=== PATIENT | male | born 1950 | race Caucasian/White ===

== ENCOUNTER 2018-11-01 07:59 | Inpatient (IN) | payer MEDICARE ==
[2018-11-01] MEDS ORDERED: PROPOFOL INJ 200 MG/20 ML VIAL IV ONE ×2 (10:40→14:34)
--- NOTE | 2018-11-01 11:59 | Operative Report ---
Operative Report DATE OF SURGERY: 11/01/18 Operative Report: The risks, benefits and alternatives of the procedure including the risk of bleeding, perforation requiring surgery have been explained to the patient in detail and informed consent has been obtained. The patient is brought back to the operating room and placed in a left, lateral decubital position. Timeout was called. Propofol medication is administered. A rectal examination is done which did not reveal any masses, tears or fissures. An Olympus videoscope was introduced into the patient's rectum. The scope was then carefully advanced. The patient does have significant diverticulosis and appears to have a redundant colon on the left side. I approached the area of the splenic flexure and there appeared to be an obstructive mass. Slight advancement of the scope could be done into the transverse colon but no further advancement could be maintained for the colonoscopy was not completed. Area was biopsied and Melita ink was used to inject the area for surgical location. I have spoken to Dr. Waldrop immediately following the case as well as updated the family members. Dr. Waldrop tells me that the patient will end up seeing Dr. Esparza. PREOPERATIVE DIAGNOSIS: Abnormal CT scan indicating a possible lesion in the area of the transverse colon POSTOPERATIVE DIAGNOSIS: Obstructive lesions noted at the area of the transverse colon and the splenic flexure area. Status post biopsy. Status post Melita ink tattoo OPERATION: Colonoscopy with submucosal injection of Melita ink. Colonoscopy with biopsy SURGEON: ANIL BARTH ANESTHESIA: LMAC TISSUE REMOVED OR ALTERED: As noted above. COMPLICATIONS: None. ESTIMATED BLOOD LOSS: None. INTRAOPERATIVE FINDINGS: As noted above. PROCEDURE: Patient tolerated the procedure well. No immediate postprocedure complications are noted. Patient discharged in good condition. Discharge date 11/01/2018. Discharge diet: Regular. Discharge activity: Regular. 2-3-week follow-up to discuss findings. Patient is instructed to call the office or proceed to the emergency room should there be any further problems or questions. I will wait on the pathology and make a surgical referral as discussed above.
[2018-11-01] MEDS ORDERED: LIDOCAINE 2% INJ-PF (20 MG/ML) 10 ML AMPUL ONE (14:33)
[2018-11-01] MEDS ORDERED: ONDANSETRON HCL INJ/PF 4 MG/2 ML SDV ONE (14:33)
[2018-11-01] MEDS ORDERED: FENTANYL CITRATE INJ/PF 100 MCG/2 ML AMPUL ONE (14:33)
[2018-11-01] MEDS ORDERED: DEXAMETHASONE SOD PHOSPHATE INJ 4 MG/1 ML VIAL ONE (14:33)
[2018-11-01] MEDS ORDERED: MIDAZOLAM 2 MG/2 ML INJ ONE (14:33)
[2018-11-01] MEDS ORDERED: EPHEDRINE SULFATE INJ 50 MG/1 ML AMPULE ONE (14:34)
[2018-11-01] MEDS ORDERED: ACETAMINOPHEN 0 MG/0 ML RTUPB IV ONE (14:34)
[2018-11-01] MEDS ORDERED: MORPHINE SULFATE 10 MG/ML INJ ONE (14:41)
--- NOTE | 2018-11-01 14:49 | PDOC CONSULTATION ---
History of Present Illness Admission Date/PCP: KEY MARTINEZ MD History of Present Illness: AYE ROCKWELL is a 68 year old male who was undergoing colonoscopy today here at [facility] by gastroenterology. a obstructing mass was noted at the distal transverse colon and surgery was consulted for further rx. upon questioning pt he has been having difficulty with stools over last couple of months. he requires multiple trips to the baathroom to pass small amts of stool throughut the day. H had a colonoscpy a number a yrs ago which is reported by him to have heen incomplete due to a tortuous colon. pt has a ct done in september of this yr at outside facitity. images were loaded up today here at [facility] and reviewd with radiologist. pt is currently post colonoscopy, resting comfortably on gurney in recovery room. Past Medical History Cardiac Medical History: Reports: Hypertension Denies: Atrial Fibrillation, Congestive Heart Failure, Coronary Artery Disease, Myocardial Infarction, Hyperlipidema, Peripheral Vascular Disease, Pulmonary Embolism, Heart Murmur Pulmonary Medical History: Denies: Asthma, Bronchitis, Chronic Obstructive Pulmonary Disease (COPD), Pneumonia, Respiratory Failure, Sleep Apnea, Tuberculosis Neurological Medical History: Denies: Seizures Endocrine Medical History: Denies: Hyperthyroidism, Hypothyroidism Renal/ Medical History: Denies: End Stage Renal Disease Malignancy Medical History: Denies: Breast Cancer, Cervical Cancer, Lung Cancer, Ovarian Cancer GI Medical History: Reports: Hiatal Hernia Denies: Crohn's Disease, Gastroesophageal Reflux Disease Musculoskeltal Medical History: Reports: Arthritis - GENERALIZED Denies: Fibromyalgia Psychiatric Medical History: Denies: Bipolar Disorder, Dementia, Depression, Post Traumatic Stress Disorder Hematology: Denies: Anemia Past Surgical History Past Surgical History: Reports: Orthopedic Surgery - neck surgery Denies: Colostomy, Pacemaker Social History Smoking Status: Current Every Day Smoker Frequency of Alcohol Use: Heavy Hx Recreational Drug Use: No Hx Prescription Drug Abuse: No Family History Family History: Arthritis, CAD, Hyperlipidemia, Hypertension. denies: COPD, CVA, DM, Malignancy - mother of colon cancer, Thyroid Disfunction Parental Family History Reviewed: No Children Family History Reviewed: Unknown Sibling(s) Family History Reviewed.: Unknown Medication/Allergy Home Medications: Lisinopril [Prinivil 20 mg Tablet] 20 mg PO DAILY 08/24/12 Omeprazole [Prilosec 40 mg Capsule] 40 mg PO AC 08/24/12 Tamsulosin HCl [Flomax] 0.4 mg PO DAILY 10/31/18 Allergies/Adverse Reactions: valsartan [From [employer]] Allergy (Unknown, Verified 11/01/18 08:26) Review of Systems Constitutional: PRESENT: as per HPI, anorexia Eyes: PRESENT: as per HPI Ears: PRESENT: as per HPI Nose, Mouth, and Throat: PRESENT: as per HPI Cardiovascular: PRESENT: as per HPI Gastrointestinal: PRESENT: constipation Neurological: PRESENT: as per HPI Psychiatric: PRESENT: as per HPI Endocrine: PRESENT: as per HPI Hematologic/Lymphatic: PRESENT: as per HPI Allergic/Immunologic: PRESENT: as per HPI Physical Exam Vital Signs: Temp Pulse Resp BP Pulse Ox 98.0 F 78 16 141/79 H 98 11/01/18 12:05 11/01/18 12:20 11/01/18 12:20 11/01/18 12:20 11/01/18 12:20 Intake & Output 10/31/18 11/01/18 11/02/18 06:59 06:59 06:59 Intake Total 750 Output Total 0 Balance 750 Weight 59.87 kg 59.87 kg General appearance: PRESENT: no acute distress Head exam: PRESENT: atraumatic, normocephalic Eye exam: PRESENT: EOMI Neck exam: PRESENT: full ROM Respiratory exam: PRESENT: clear to auscultation sravanthi Cardiovascular exam: PRESENT: RRR Pulses: PRESENT: normal radial pulses, normal femoral pulses GI/Abdominal exam: PRESENT: firm, other - thin, liver palpable Extremities exam: PRESENT: full ROM Neurological exam: PRESENT: alert, awake, oriented to time, oriented to situation Psychiatric exam: PRESENT: appropriate affect Skin exam: PRESENT: dry Results Status: Image reviewed by vt - ct scan reviwed with radiology multiple masses seen in both liver lobes c/w metastatic disease tumor seen in distal transverse colon. Assessment & Plan - Plan Summary Plan Summary: pt with obstructing colon cancer with metastatic disease will plan on decompression trasverse loop colostomy then oncology consult for management of metastic disease I dicussed risks and benifits of the colostomy iwth pt and his brother at bedside they understand risks of bleeding,infection, sepsis mi, cva, pulm embolism, need for additional surgery pt agrees to proceed.
[2018-11-01] MEDS ORDERED: BUPIVACAINE HCL 0.25 % INJ/PF (2.5 MG/1 ML) 30 ML VIAL ONE (14:57)
[2018-11-01] MEDS ORDERED: BUPIVACAINE INJ/PF LIPOSOME/PF 266 MG/20 ML SDV ONE (14:57)
[2018-11-01] MEDS ORDERED: BUPIVACAINE HCL 0.5%-EPI 1:200000 INJ/PF 30 ML VIAL ONE (14:57)
[2018-11-01] MEDS ORDERED: BUPIVACAINE HCL 0.5 % INJ/PF 30 ML SDV ONE (14:57)
[2018-11-01 15:07] LABS: ABSOLUTE BASOPHILS # (AUTO) 0.1 10^3/uL (0.0-0.2); ABSOLUTE EOSINOPHILS # (AUTO) 0.1 10^3/uL (0.0-0.6); ABSOLUTE LYMPHOCYTES (AUTO) 0.7 10^3/uL (0.5-4.7); ABSOLUTE NEUT (AUTO) 5.8 10^3/uL (1.7-8.2); BASOPHILS % (AUTO) 0.8 % (0-2); EOSINOPHILS % (AUTO) 1.5 % (0-6); HEMATOCRIT 37.2 % (37.9-51.0); HEMOGLOBIN 12.7 g/dL (13.5-17.0); LYMPHOCYTES % (AUTO) 9.2 % (13-45); MEAN CORPUSCULAR HEMOGLOBIN 30.5 pg (27.0-33.4); MEAN CORPUSCULAR HGB CONC 34.1 g/dL (32.0-36.0); MEAN CORPUSCULAR VOLUME 90 fl (80-97); MONOCYTES % (AUTO) 13.2 % (3-13); PLATELET COUNT 237 10^3/uL (150-450); RED BLOOD COUNT 4.16 10^6/uL (4.35-5.55); RED CELL DISTRIBUTION WIDTH 13.7 % (11.5-14.0); SEGMENTED NEUTROPHILS % (AUTO) 75.3 % (42-78); TOTAL CELLS COUNTED % (AUTO) 100 %; WHITE BLOOD COUNT 7.7 10^3/uL (4.0-10.5)
[2018-11-01 15:22] LABS: ANION GAP 8 (5-19); BLOOD UREA NITROGEN 12 mg/dL (7-20); CALCIUM 9.7 mg/dL (8.4-10.2); CARBON DIOXIDE 30 mmol/L (22-30); CHLORIDE 99 mmol/L (98-107); GLUCOSE 86 mg/dL (75-110); POTASSIUM 4.3 mmol/L (3.6-5.0); SODIUM 137.4 mmol/L (137-145)
[2018-11-01 15:32] LABS: INTERNATIONAL RATION (INR) 1.02; PROTHROMBIN TIME 13.9 SEC (11.4-15.4)
[2018-11-01 15:33] LABS: PARTIAL THROMBOPLASTIN TIME 40.3 SEC (23.5-35.8)
[2018-11-01] MEDS ORDERED: HYDROMORPHONE HCL INJ/PF 2 MG/ML AMPULE ONE (15:43)
[2018-11-01] MEDS ORDERED: METRONIDAZOLE 500 MG/NS RTU 500 MG/100 ML RTUPB IV ONE (16:05)
[2018-11-01] MEDS ORDERED: CEFAZOLIN 1 GM/D5W RTU 1 GM/50 ML RTUPB IV ONE (16:05)
[2018-11-01] MEDS ORDERED: PHYTONADIONE INJ 10 MG/1 ML AMPULE ONE (16:25)
[2018-11-01] MEDS ORDERED: PROMETHAZINE HCL INJ 25 MG/1 ML VIAL IV PRN (16:57)
[2018-11-01] MEDS ORDERED: DIPHENHYDRAMINE HCL 50 MG/ML VIAL IV PRN (16:57)
[2018-11-01] MEDS ORDERED: FENTANYL CITRATE INJ/PF 100 MCG/2 ML AMPUL IV PRN ×3 (16:57)
[2018-11-01] MEDS ORDERED: MORPHINE SULFATE 10 MG/ML INJ IV PRN (16:57)
[2018-11-01] MEDS ORDERED: MEPERIDINE HCL/PF INJ 25 MG/1 ML DISP.SYRIN IV PRN (16:57)
--- NOTE | 2018-11-01 17:20 | Operative Report ---
Operative Report DATE OF SURGERY: 11/01/18 PREOPERATIVE DIAGNOSIS: obstructing colon cancer OPERATION: transverse loop colostomy and liver biopsy SURGEON: FELICIANO PEGUERO 1ST NUMERICAL CONTROL TOOL PROGRAMMER: RAMÓN TORRE ANESTHESIA: GA TISSUE REMOVED OR ALTERED: liver biopsy COMPLICATIONS: none ESTIMATED BLOOD LOSS: 50cc INTRAOPERATIVE FINDINGS: metastatatic tumor in liver PROCEDURE: see dictated note
[2018-11-01] MEDS ORDERED: DEXTROSE 50%-WATER 25 GM/50 ML DISP.SYRIN IV PRN ×2 (17:23)
[2018-11-01] MEDS ORDERED: GLUCAGON,HUMAN RECOMB 1 MG INJ SUBCUT PRN (17:23)
[2018-11-01] MEDS ORDERED: DEXTROSE 40% GEL 15 GM TUBE PO PRN ×2 (17:23)
[2018-11-01] MEDS ORDERED: ONDANSETRON HCL INJ/PF 4 MG/2 ML SDV IV PRN (17:23)
--- NOTE | 2018-11-01 18:42 | OPERATIVE REPORT E ---
Operative Report NAME: AYE ROCKWELL : 1950 AGE: 68Y DATE OF SURGERY: 11/01/2018 ROOM: OR PREOPERATIVE DIAGNOSIS: OBSTRUCTING COLON CANCER. POSTOPERATIVE DIAGNOSIS: OBSTRUCTING COLON CANCER. OPERATIVE PROCEDURE: Transverse loop colostomy with liver biopsy. SURGEON: FELICIANO PEGUERO M.D. DIGITAL ADVERTISING SPECIALIST: Jaren Waldrop M.D. who assisted in all portions of the procedure and aided in retraction and wound closure. INDICATIONS FOR OPERATION: This is a 68-year-old male who underwent a colonoscopy today by Dr. Armijo, who noted an obstructive lesion in his distal transverse colon. We then reviewed his CT scans which showed marked hepatic metastasis. Because of the near obstructing lesion he was brought to the operating room for this procedure. PROCEDURE IN DETAIL: The patient was brought to the operating room in an awake, alert, and stable condition. Placed on the operating room table in the supine position, induced under general anesthesia, intubated. The abdomen was prepped and draped in the usual sterile fashion for the procedure. Incision was utilized from just below the xyphoid to the umbilicus. Dissection carried down to through the subcutaneous tissue with Bovie cautery. When the midline fascia was entered he had very thin midline fascia. His subcutaneous tissue had very little fat and his liver was markedly enlarged about 6 cm below the right costal margin. We had to retract the right lobe of the liver anteriorly to gain access to the transverse colon. When we visualized the liver it was markedly infiltrated with tumor. A small biopsy was obtained using a 15 blade and incising a small wedge biopsy of the right lobe of the liver, approximately a centimeter of tissue was removed, and hemostasis was obtained with Bovie cautery. Once this was completed we identified the transverse colon and I palpated the hepatic flexure down to the cecum to make sure that it was in fact the transverse colon. I cleared the omentum off the transverse colon with Bovie cautery, preserving the transverse colonic mesentery. Once this was done the transverse colon was fairly mobile and it would easily fit to underneath the left abdominal wall. We then created a defect in the left anterior rectus fascia using Bovie cautery to incise a half dollar size segment of skin and then we made a stellate incision in the anterior sheath and the posterior sheath of the rectus muscle, and then we pulled the transverse loop through that. Once this was completed we confirmed good hemostasis and closed the midline fascia with a running 0 looped PDS suture and the skin was then closed with standard skin clips. We then matured the transverse loop over a Red Rubber Colon Catheter with interrupted 3-0 Vicryl sutures. A sterile colostomy appliance was then applied, which completed the procedure. Estimated blood loss was less than 50 mL. Sponge and needle counts were correct x2. The patient was awakened in the operating room, extubated, transferred to recovery in stable condition. No complications. DICTATING PHYSICIAN: FELICIANO PEGUERO M.D. [id number] PHY#: [id number] ID: [id number] JOB#: [id number] ACCT: [id number] cc:FELICIANO PEGUERO M.D. >
[2018-11-01] MEDS: CEFAZOLIN 1 GM/D5W RTU 1 GM/50 ML RTUPB IV SCH ×2 (19:59→23:54)
[2018-11-01 20:34] LABS: ALANINE AMINOTRANSFERASE 26 U/L (21-72); ALBUMIN 3.8 g/dL (3.5-5.0); ALKALINE PHOSPHATASE 310 U/L (38-126); ASPARTATE AMINO TRANSFERASE 115 U/L (17-59); BILIRUBIN,DIRECT 0.4 mg/dL (0.0-0.4); BILIRUBIN,TOTAL 0.9 mg/dL (0.2-1.3); TOTAL PROTEIN 6.6 g/dL (6.3-8.2)
[2018-11-01] MEDS: MORPHINE SULFATE 10 MG/ML INJ IV PRN ×2 (20:57→23:49)
[2018-11-01] MEDS: POTASSI CL 20 MEQ/NS 1L 1,000 ML IV PRN (21:08)
--- NOTE | 2018-11-01 21:12 | EKG REPORT ---
SEVERITY:- ABNORMAL ECG - SINUS RHYTHM RIGHT BUNDLE BRANCH BLOCK : Confirmed by: Josette Barber 01-Nov-2018 21:11:26
[2018-11-01] MEDS: HEPARIN SOD (PORCINE) 5,000 UNIT/ML 1 ML SYRINGE SUBCUT SCH (22:09)
[2018-11-01] MEDS: FAMOTIDINE INJ/PF 20 MG/2 ML SDV IV SCH (22:09)
[2018-11-01] MEDS: METRONIDAZOLE 500 MG/NS RTU 500 MG/100 ML RTUPB IV SCH (22:10)
[2018-11-02] MEDS: MORPHINE SULFATE 10 MG/ML INJ IV PRN ×5 (04:11→20:25)
[2018-11-02] MEDS: CEFAZOLIN 1 GM/D5W RTU 1 GM/50 ML RTUPB IV SCH ×3 (05:40→18:19)
[2018-11-02] MEDS: METRONIDAZOLE 500 MG/NS RTU 500 MG/100 ML RTUPB IV SCH ×3 (06:19→21:44)
[2018-11-02 06:44] LABS: HEMATOCRIT 38.5 % (37.9-51.0); MEAN CORPUSCULAR HEMOGLOBIN 30.2 pg (27.0-33.4); MEAN CORPUSCULAR HGB CONC 33.7 g/dL (32.0-36.0); MEAN CORPUSCULAR VOLUME 90 fl (80-97); PLATELET COUNT 215 10^3/uL (150-450); RED BLOOD COUNT 4.28 10^6/uL (4.35-5.55); RED CELL DISTRIBUTION WIDTH 13.9 % (11.5-14.0); WHITE BLOOD COUNT 8.3 10^3/uL (4.0-10.5)
[2018-11-02 07:09] LABS: ABSOLUTE LYMPHOCYTES# (MANUAL) 0.2 10^3/uL (0.5-4.7); ABSOLUTE MONOCYTES # (MANUAL) 1.1 10^3/uL (0.1-1.4); ABSOLUTE NEUTROPHILS# (MANUAL) 7.1 10^3/uL (1.7-8.2); BASOPHILS % (MANUAL) 0 % (0-2); EOSINOPHILS % (MANUAL) 0 % (0-6); LYMPHOCYTES % (MANUAL) 2 % (13-45); MONOCYTES % (MANUAL) 13 % (3-13); PLATELET COMMENT ADEQUATE; RBC MORPHOLOGY COMMENT NORMO-CYTIC/CHROMIC; SEGMENTED NEUTROPHILS % (MAN) 85 % (42-78); TOTAL CELLS COUNTED 100; TOXIC VACUOLATION PRESENT
[2018-11-02 07:19] LABS: ALANINE AMINOTRANSFERASE 29 U/L (21-72); ALBUMIN 3.8 g/dL (3.5-5.0); ALKALINE PHOSPHATASE 274 U/L (38-126); ANION GAP 13 (5-19); ASPARTATE AMINO TRANSFERASE 119 U/L (17-59); BILIRUBIN,DIRECT 0.6 mg/dL (0.0-0.4); BILIRUBIN,TOTAL 0.8 mg/dL (0.2-1.3); BLOOD UREA NITROGEN 14 mg/dL (7-20); CALCIUM 9.3 mg/dL (8.4-10.2); CARBON DIOXIDE 24 mmol/L (22-30); CHLORIDE 101 mmol/L (98-107); GLUCOSE 116 mg/dL (75-110); SODIUM 138.4 mmol/L (137-145); TOTAL PROTEIN 6.6 g/dL (6.3-8.2)
--- NOTE | 2018-11-02 08:19 | PDOC PROGRESS REPORT ---
Subjective Progress Note for:: 11/02/18 Reason For Visit: METASTATIC COLON CANCER post op transverse loop colostomy Physical Exam Vital Signs: Temp Pulse Resp BP Pulse Ox 97.4 F 103 H 19 176/97 H 99 11/02/18 00:59 11/02/18 00:59 11/02/18 00:59 11/02/18 00:59 11/02/18 00:59 Intake & Output 11/01/18 11/02/18 11/03/18 06:59 06:59 06:59 Intake Total 3190 Output Total 1045 Balance 2145 Weight 59.87 kg 60.8 kg General appearance: PRESENT: no acute distress Mouth exam: PRESENT: moist Neck exam: PRESENT: full ROM Respiratory exam: PRESENT: clear to auscultation sravanthi Cardiovascular exam: PRESENT: RRR, tachycardia Pulses: PRESENT: normal radial pulses, normal femoral pulses GI/Abdominal exam: PRESENT: soft - wound clean dry stoma pink. non productive Extremities exam: PRESENT: full ROM Neurological exam: PRESENT: alert, awake, oriented to person, oriented to place, oriented to time, oriented to situation Psychiatric exam: PRESENT: appropriate affect Results Laboratory Results: 11/02/18 05:39 11/02/18 05:39 11/01/18 11/01/18 11/01/18 14:52 14:52 14:52 WBC 7.7 RBC 4.16 L Hgb 12.7 L Hct 37.2 L MCV 90 MCH 30.5 MCHC 34.1 RDW 13.7 Plt Count 237 Seg Neutrophils % 75.3 Lymphocytes % 9.2 L Monocytes % 13.2 H Eosinophils % 1.5 Basophils % 0.8 Absolute Neutrophils 5.8 Absolute Lymphocytes 0.7 Absolute Monocytes 1.0 Absolute Eosinophils 0.1 Absolute Basophils 0.1 Sodium 137.4 Potassium 4.3 Chloride 99 Carbon Dioxide 30 Anion Gap 8 BUN 12 Creatinine 0.66 Est GFR ( Amer) > 60 Est GFR (Non-Af Amer) > 60 Glucose 86 Calcium 9.7 Total Bilirubin 0.9 AST 115 H ALT 26 Alkaline Phosphatase 310 H Total Protein 6.6 Albumin 3.8 11/02/18 11/02/18 05:39 05:39 WBC 8.3 RBC 4.28 L Hgb 13.0 L Hct 38.5 MCV 90 MCH 30.2 MCHC 33.7 RDW 13.9 Plt Count 215 Seg Neutrophils % Not Reportable Lymphocytes % Not Reportable Monocytes % Not Reportable Eosinophils % Not Reportable Basophils % Not Reportable Absolute Neutrophils Not Reportable Absolute Lymphocytes Not Reportable Absolute Monocytes Not Reportable Absolute Eosinophils Not Reportable Absolute Basophils Not Reportable Sodium 138.4 Potassium 5.0 Chloride 101 Carbon Dioxide 24 Anion Gap 13 BUN 14 Creatinine 0.71 Est GFR ( Amer) > 60 Est GFR (Non-Af Amer) > 60 Glucose 116 H Calcium 9.3 Total Bilirubin 0.8 AST 119 H ALT 29 Alkaline Phosphatase 274 H Total Protein 6.6 Albumin 3.8 Assessment & Plan - Inpatient Certification Medical Necessity: Need Close Monitoring Due to Risk of Patient Decompensation, Need for Pain Control, Need for IV Antibiotics - Plan Summary Plan Summary: pod #1 loop colostomy for obstructed colon cancer this am doing well stoma pink pt with min c/o pain plan clear liquids dc cerna cont iv abx increase activity.
[2018-11-02] MEDS: HEPARIN SOD (PORCINE) 5,000 UNIT/ML 1 ML SYRINGE SUBCUT SCH ×2 (09:52→21:47)
[2018-11-02] MEDS: FAMOTIDINE INJ/PF 20 MG/2 ML SDV IV SCH ×2 (09:52→21:47)
[2018-11-02] MEDS: POTASSI CL 20 MEQ/NS 1L 1,000 ML IV PRN (10:11)
[2018-11-02] MEDS ORDERED: MORPHINE SULFATE INJ PF 2 MG/2 ML AMPULE IV PRN (10:13)
[2018-11-02] MEDS: ALBUTEROL SULFATE 0.083% NEB 2.5 MG/3 ML AMPUL NEB SCH ×3 (12:00→19:46)
[2018-11-03] MEDS: ALBUTEROL SULFATE 0.083% NEB 2.5 MG/3 ML AMPUL NEB SCH ×6 (00:41→21:35)
[2018-11-03] MEDS: CEFAZOLIN 1 GM/D5W RTU 1 GM/50 ML RTUPB IV SCH ×4 (01:04→17:17)
[2018-11-03] MEDS: POTASSI CL 20 MEQ/NS 1L 1,000 ML IV PRN ×2 (01:06→11:59)
[2018-11-03] MEDS: MORPHINE SULFATE 10 MG/ML INJ IV PRN ×3 (04:14→20:03)
[2018-11-03] MEDS: METRONIDAZOLE 500 MG/NS RTU 500 MG/100 ML RTUPB IV SCH ×3 (05:38→22:20)
--- NOTE | 2018-11-03 06:50 | PDOC PROGRESS REPORT ---
Subjective Progress Note for:: 11/03/18 Reason For Visit: METASTATIC COLON CANCER Physical Exam Vital Signs: Temp Pulse Resp BP Pulse Ox 98.3 F 92 18 149/76 H 96 11/03/18 00:00 11/03/18 04:28 11/03/18 04:28 11/03/18 00:00 11/03/18 04:28 Intake & Output 11/01/18 11/02/18 11/03/18 06:59 06:59 06:59 Intake Total 3190 3722 Output Total 1045 850 Balance 2145 2872 Weight 59.87 kg 60.8 kg 60.1 kg General appearance: PRESENT: no acute distress Eye exam: PRESENT: EOMI, PERRLA Neck exam: PRESENT: full ROM Respiratory exam: PRESENT: clear to auscultation sravanthi Cardiovascular exam: PRESENT: RRR Pulses: PRESENT: normal carotid pulses, normal radial pulses, normal femoral pulses Vascular exam: PRESENT: normal capillary refill GI/Abdominal exam: PRESENT: other - stoma pink, some gas in bag, no stool wound dry Extremities exam: PRESENT: full ROM Musculoskeletal exam: PRESENT: full ROM Neurological exam: PRESENT: alert, oriented to person, oriented to place, oriented to time, oriented to situation, reflexes normal Skin exam: PRESENT: dry Results Laboratory Results: 11/02/18 05:39 11/02/18 11/02/18 05:39 05:39 WBC 8.3 RBC 4.28 L Hgb 13.0 L Hct 38.5 MCV 90 MCH 30.2 MCHC 33.7 RDW 13.9 Plt Count 215 Seg Neutrophils % Not Reportable Lymphocytes % Not Reportable Monocytes % Not Reportable Eosinophils % Not Reportable Basophils % Not Reportable Absolute Neutrophils Not Reportable Absolute Lymphocytes Not Reportable Absolute Monocytes Not Reportable Absolute Eosinophils Not Reportable Absolute Basophils Not Reportable Sodium 138.4 Potassium 5.0 Chloride 101 Carbon Dioxide 24 Anion Gap 13 BUN 14 Creatinine 0.71 Est GFR ( Amer) > 60 Est GFR (Non-Af Amer) > 60 Glucose 116 H Calcium 9.3 Total Bilirubin 0.8 AST 119 H ALT 29 Alkaline Phosphatase 274 H Total Protein 6.6 Albumin 3.8 Assessment & Plan - Inpatient Certification Medical Necessity: Need For IV Fluids - Plan Summary Plan Summary: pod # awating return of bowel function will cont with abx increase activity cont only clears.
[2018-11-03 06:58] LABS: HEMATOCRIT 39.2 % (37.9-51.0); HEMOGLOBIN 13.1 g/dL (13.5-17.0); MEAN CORPUSCULAR HEMOGLOBIN 30.1 pg (27.0-33.4); MEAN CORPUSCULAR HGB CONC 33.4 g/dL (32.0-36.0); MEAN CORPUSCULAR VOLUME 90 fl (80-97); PLATELET COUNT 225 10^3/uL (150-450); RED BLOOD COUNT 4.35 10^6/uL (4.35-5.55); RED CELL DISTRIBUTION WIDTH 13.8 % (11.5-14.0); WHITE BLOOD COUNT 9.8 10^3/uL (4.0-10.5)
[2018-11-03 07:34] LABS: ABSOLUTE LYMPHOCYTES# (MANUAL) 0.7 10^3/uL (0.5-4.7); ABSOLUTE MONOCYTES # (MANUAL) 0.6 10^3/uL (0.1-1.4); ABSOLUTE NEUTROPHILS# (MANUAL) 8.5 10^3/uL (1.7-8.2); BASOPHILS % (MANUAL) 0 % (0-2); EOSINOPHILS % (MANUAL) 0 % (0-6); LYMPHOCYTES % (MANUAL) 7 % (13-45); MONOCYTES % (MANUAL) 6 % (3-13); SEGMENTED NEUTROPHILS % (MAN) 87 % (42-78); TOTAL CELLS COUNTED 100
[2018-11-03 07:35] LABS: PLATELET COMMENT ADEQUATE; RBC MORPHOLOGY COMMENT NORMO-CYTIC/CHROMIC
[2018-11-03] MEDS ORDERED: LORAZEPAM INJ 2 MG/1 ML VIAL IV PRN (08:04)
--- NOTE | 2018-11-03 08:30 | PDOC CONSULTATION ---
Consultation Consult Date: 11/03/18 Consult reason:: Hematology/Oncology consultation was requested for patient with suspected metastatic colon cancer. History of Present Illness Admission Date/PCP: 11/01/18 14:41 KEY CARRERA MD History of Present Illness: AYE ROCKWELL is a 68 year old male who follows with Dr. Carrera in [place]. He states that he underwent colonoscopy 4 years ago and at that time, he was told that he had 2 polyps that they "couldn't reach." He had been feeling well until about 1 month ago when he developed lower back pain. He was evaluated by Dr. Carrera with X-rays and conservative management, but pain progressed and he began having difficulty with BMs. He underwent MRI scan of the back and this showed a colon mass with probable liver mets. He underwent colonoscopy with Dr. Armijo, but pathology revealed no evidence of cancer. He was admitted for surgical resection of the colon mass by Dr. Esparza. He now has colostomy. Today, he states that he is having pain. The pain medication that was ordered has not helped at all. He has difficulty moving due to pain. He is tolerating some liquids, but has not yet been allowed to eat. He denies nausea. Past Medical History Cardiac Medical History: Reports: Hypertension Denies: Atrial Fibrillation, Congestive Heart Failure, Coronary Artery Disease, Myocardial Infarction, Hyperlipidema, Peripheral Vascular Disease, Pulmonary Embolism, Heart Murmur Pulmonary Medical History: Denies: Asthma, Bronchitis, Chronic Obstructive Pulmonary Disease (COPD), Pneumonia, Respiratory Failure, Sleep Apnea, Tuberculosis Neurological Medical History: Denies: Seizures Endocrine Medical History: Denies: Hyperthyroidism, Hypothyroidism Renal/ Medical History: Denies: End Stage Renal Disease Malignancy Medical History: Denies: Breast Cancer, Cervical Cancer, Lung Cancer, Ovarian Cancer GI Medical History: Reports: Hiatal Hernia Denies: Crohn's Disease, Gastroesophageal Reflux Disease Musculoskeltal Medical History: Reports: Arthritis - GENERALIZED Denies: Fibromyalgia Psychiatric Medical History: Denies: Bipolar Disorder, Dementia, Depression, Post Traumatic Stress D isorder Hematology: Denies: Anemia Past Surgical History Past Surgical History: Reports: Orthopedic Surgery - neck surgery Denies: Colostomy, Pacemaker Social History Information Source: Patient Occupation: retired packer Smoking Status: Current Every Day Smoker Frequency of Alcohol Use: Heavy Hx Recreational Drug Use: No Drugs: None Hx Prescription Drug Abuse: No Past Social History Note: He is with 1 child. - Advance Directive Resuscitation Status: Full Code Family History Family History: Arthritis, CAD, Hyperlipidemia, Hypertension. denies: COPD, CVA, DM, Malignancy - mother of colon cancer, Thyroid Disfunction Parental Family History Reviewed: Yes - Mother with colon cancer, but of COPD. Father of SD. Children Family History Reviewed: No Sibling(s) Family History Reviewed.: Yes - Brother of SD age 54 Medication/Allergy Home Medications: Lisinopril [Prinivil 20 mg Tablet] 20 mg PO DAILY 08/24/12 Omeprazole [Prilosec 40 mg Capsule] 40 mg PO AC 08/24/12 Tamsulosin HCl [Flomax] 0.4 mg PO DAILY 10/31/18 Allergies/Adverse Reactions: valsartan [From [employer] Allergy (Unknown, Verified 11/01/18 08:26) Review of Systems Constitutional: ABSENT: fever(s), headache(s) Eyes: ABSENT: visual disturbances Ears: ABSENT: hearing changes Nose, Mouth, and Throat: ABSENT: sore throat Cardiovascular: ABSENT: chest pain Respiratory: ABSENT: dyspnea Gastrointestinal: PRESENT: abdominal pain, constipation. ABSENT: nausea Genitourinary: ABSENT: dysuria Musculoskeletal: PRESENT: back pain Integumentary: ABSENT: rash Neurological: ABSENT: dizziness Physical Exam Vital Signs: Temp Pulse Resp BP Pulse Ox 98.3 F 92 18 149/76 H 96 11/03/18 00:00 11/03/18 04:28 11/03/18 04:28 11/03/18 00:00 11/03/18 04:28 Intake & Output 11/02/18 11/03/18 11/04/18 06:59 06:59 06:59 Intake Total 3190 7532 Output Total 1048 958 Balance 2145 2922 Weight 60.8 kg 60.1 kg General appearance: PRESENT: well-developed, well-nourished Exam: 68 year old male. Head exam: PRESENT: atraumatic, normocephalic Eye exam: PRESENT: EOMI Mouth exam: PRESENT: tongue midline Neck exam: ABSENT: lymphadenopathy, tenderness Respiratory exam: PRESENT: clear to auscultation sravanthi, unlabored Cardiovascular exam: PRESENT: RRR GI/Abdominal exam: PRESENT: soft, tenderness, other - Colostomy with serosanguenous fluid. Extremities exam: ABSENT: pedal edema Neurological exam: PRESENT: alert, awake Psychiatric exam: PRESENT: appropriate affect Focused psych exam: ABSENT: pressured speech Skin exam: PRESENT: normal color Results Laboratory Results: 11/03/18 05:48 11/02/18 05:39 11/03/18 05:48 WBC 9.8 RBC 4.35 Hgb 13.1 L Hct 39.2 MCV 90 MCH 30.1 MCHC 33.4 RDW 13.8 Plt Count 225 Seg Neutrophils % Not Reportable Lymphocytes % Not Reportable Monocytes % Not Reportable Eosinophils % Not Reportable Basophils % Not Reportable Absolute Neutrophils Not Reportable Absolute Lymphocytes Not Reportable Absolute Monocytes Not Reportable Absolute Eosinophils Not Reportable Absolute Basophils Not Reportable Assessment & Plan - Diagnosis (1) Colonic mass Is this a current diagnosis for this admission?: Yes Plan: I reviewed the labs and will check CEA level now. I do not have access to the CT/MRI reports from the other facility. I will try to obtain these reports. Await pathology results. Further recommendations after all above is available. (2) Pain Is this a current diagnosis for this admission?: Yes Plan: After surgery. Morphine has not been adequate. I will add Toradol RTC as well as PRN ativan and consider increasing dose of morphine as well. Will hold off on long-acting opiods if possible. - Plan Summary Plan Summary: Thank you for this consultation. I will be happy to continue to follow him in house as well as outpatient. Will review results of pathology report with the patient once available.
[2018-11-03] MEDS: HEPARIN SOD (PORCINE) 5,000 UNIT/ML 1 ML SYRINGE SUBCUT SCH ×2 (10:26→22:20)
[2018-11-03] MEDS: FAMOTIDINE INJ/PF 20 MG/2 ML SDV IV SCH ×2 (10:26→22:20)
[2018-11-03] MEDS: KETOROLAC TROMETHAMINE INJ/PF 30 MG/1 ML SDV IV SCH ×2 (11:10→17:17)
[2018-11-04] MEDS: ALBUTEROL SULFATE 0.083% NEB 2.5 MG/3 ML AMPUL NEB SCH ×6 (00:16→20:50)
[2018-11-04] MEDS: KETOROLAC TROMETHAMINE INJ/PF 30 MG/1 ML SDV IV SCH ×5 (00:42→23:38)
[2018-11-04] MEDS: CEFAZOLIN 1 GM/D5W RTU 1 GM/50 ML RTUPB IV SCH ×5 (00:43→23:37)
[2018-11-04] MEDS: POTASSI CL 20 MEQ/NS 1L 1,000 ML IV PRN ×2 (03:41→20:06)
[2018-11-04] MEDS: MORPHINE SULFATE 10 MG/ML INJ IV PRN ×4 (05:54→22:24)
[2018-11-04] MEDS: METRONIDAZOLE 500 MG/NS RTU 500 MG/100 ML RTUPB IV SCH ×3 (06:47→22:10)
[2018-11-04 07:17] LABS: ABSOLUTE EOSINOPHILS # (AUTO) 0.1 10^3/uL (0.0-0.6); ABSOLUTE LYMPHOCYTES (AUTO) 0.5 10^3/uL (0.5-4.7); ABSOLUTE NEUT (AUTO) 5.5 10^3/uL (1.7-8.2); BASOPHILS % (AUTO) 0.5 % (0-2); EOSINOPHILS % (AUTO) 0.9 % (0-6); HEMATOCRIT 34.6 % (37.9-51.0); HEMOGLOBIN 11.8 g/dL (13.5-17.0); LYMPHOCYTES % (AUTO) 7.2 % (13-45); MEAN CORPUSCULAR HEMOGLOBIN 30.7 pg (27.0-33.4); MEAN CORPUSCULAR VOLUME 90 fl (80-97); MONOCYTES % (AUTO) 13.5 % (3-13); PLATELET COUNT 192 10^3/uL (150-450); RED BLOOD COUNT 3.83 10^6/uL (4.35-5.55); RED CELL DISTRIBUTION WIDTH 13.7 % (11.5-14.0); SEGMENTED NEUTROPHILS % (AUTO) 77.9 % (42-78); TOTAL CELLS COUNTED % (AUTO) 100 %; WHITE BLOOD COUNT 7.1 10^3/uL (4.0-10.5)
[2018-11-04] MEDS: HEPARIN SOD (PORCINE) 5,000 UNIT/ML 1 ML SYRINGE SUBCUT SCH ×2 (10:58→22:10)
[2018-11-04] MEDS: FAMOTIDINE INJ/PF 20 MG/2 ML SDV IV SCH ×2 (10:58→22:10)
--- NOTE | 2018-11-04 12:27 | PDOC PROGRESS REPORT ---
Subjective Progress Note for:: 11/04/18 Subjective:: Patient has no new concerns today. He has several visitors in the room. Reason For Visit: METASTATIC COLON CANCER Physical Exam Vital Signs: Temp Pulse Resp BP Pulse Ox 97.5 F 90 15 160/93 H 96 11/04/18 08:16 11/04/18 08:16 11/04/18 08:16 11/04/18 08:16 11/04/18 08:16 Intake & Output 11/03/18 11/04/18 11/05/18 06:59 06:59 06:59 Intake Total 3772 4260 100 Output Total 850 475 300 Balance 2922 3785 -200 Weight 60.1 kg 63.9 kg Results Laboratory Results: 11/04/18 06:15 11/02/18 05:39 11/04/18 06:15 WBC 7.1 RBC 3.83 L Hgb 11.8 L Hct 34.6 L MCV 90 MCH 30.7 MCHC 34.0 RDW 13.7 Plt Count 192 Seg Neutrophils % 77.9 Lymphocytes % 7.2 L Monocytes % 13.5 H Eosinophils % 0.9 Basophils % 0.5 Absolute Neutrophils 5.5 Absolute Lymphocytes 0.5 Absolute Monocytes 1.0 Absolute Eosinophils 0.1 Absolute Basophils 0.0 Assessment & Plan - Diagnosis (1) Colonic mass Is this a current diagnosis for this admission?: Yes (2) Pain Is this a current diagnosis for this admission?: Yes - Plan Summary Plan Summary: Although I would like to review pathology report in detail with the patient and family, he has indicated that this is not a good time to do so. I have offered to arrange a family meeting at another point. However, he states that his family will be taking him to [place] for his treatments. I will be happy to see him as outpatient should he decide to have treatment locally. I believe he would benefit from some type of systemic chemotherapy, but several options exist. I will arrange for outpatient follow-up with me, should he so choose.
--- NOTE | 2018-11-04 14:40 | PDOC PROGRESS REPORT ---
Subjective Progress Note for:: 11/04/18 Subjective:: no pains Reason For Visit: METASTATIC COLON CANCER Physical Exam Vital Signs: Temp Pulse Resp BP Pulse Ox 97.9 F 69 15 172/93 H 96 11/04/18 12:04 11/04/18 12:04 11/04/18 12:04 11/04/18 12:04 11/04/18 08:16 Intake & Output 11/03/18 11/04/18 11/05/18 06:59 06:59 06:59 Intake Total 3772 4260 150 Output Total 850 475 300 Balance 2922 3785 -150 Weight 60.1 kg 63.9 kg Exam: colostomy starting to function Results Laboratory Results: 11/04/18 06:15 11/02/18 05:39 11/04/18 06:15 WBC 7.1 RBC 3.83 L Hgb 11.8 L Hct 34.6 L MCV 90 MCH 30.7 MCHC 34.0 RDW 13.7 Plt Count 192 Seg Neutrophils % 77.9 Lymphocytes % 7.2 L Monocytes % 13.5 H Eosinophils % 0.9 Basophils % 0.5 Absolute Neutrophils 5.5 Absolute Lymphocytes 0.5 Absolute Monocytes 1.0 Absolute Eosinophils 0.1 Absolute Basophils 0.0 Assessment & Plan - Time Time Spent with patient: 15-24 minutes - Inpatient Certification Medical Necessity: Need Close Monitoring Due to Risk of Patient Decompensation, Need For IV Fluids, Risk of Complication if Not Cared For in Hospital - Plan Summary Plan Summary: increase diet to full liquids Oncology ff-up noted and appreciated
[2018-11-04] MEDS ORDERED: LISINOPRIL 10 MG TABLET PO ONE (17:00)
[2018-11-05] MEDS: ALBUTEROL SULFATE 0.083% NEB 2.5 MG/3 ML AMPUL NEB SCH ×4 (01:17→13:06)
[2018-11-05 04:59] LABS: ABSOLUTE EOSINOPHILS # (AUTO) 0.1 10^3/uL (0.0-0.6); ABSOLUTE LYMPHOCYTES (AUTO) 0.6 10^3/uL (0.5-4.7); ABSOLUTE MONOCYTES (AUTO) 1.1 10^3/uL (0.1-1.4); ABSOLUTE NEUT (AUTO) 5.6 10^3/uL (1.7-8.2); BASOPHILS % (AUTO) 0.5 % (0-2); EOSINOPHILS % (AUTO) 1.6 % (0-6); HEMATOCRIT 35.8 % (37.9-51.0); HEMOGLOBIN 12.1 g/dL (13.5-17.0); LYMPHOCYTES % (AUTO) 7.6 % (13-45); MEAN CORPUSCULAR HEMOGLOBIN 30.4 pg (27.0-33.4); MEAN CORPUSCULAR HGB CONC 33.8 g/dL (32.0-36.0); MEAN CORPUSCULAR VOLUME 90 fl (80-97); MONOCYTES % (AUTO) 14.7 % (3-13); PLATELET COUNT 208 10^3/uL (150-450); RED BLOOD COUNT 3.98 10^6/uL (4.35-5.55); RED CELL DISTRIBUTION WIDTH 13.9 % (11.5-14.0); SEGMENTED NEUTROPHILS % (AUTO) 75.6 % (42-78); TOTAL CELLS COUNTED % (AUTO) 100 %; WHITE BLOOD COUNT 7.5 10^3/uL (4.0-10.5)
[2018-11-05] MEDS: CEFAZOLIN 1 GM/D5W RTU 1 GM/50 ML RTUPB IV SCH ×4 (05:44→23:05)
[2018-11-05] MEDS: KETOROLAC TROMETHAMINE INJ/PF 30 MG/1 ML SDV IV SCH ×4 (05:44→23:04)
[2018-11-05] MEDS: METRONIDAZOLE 500 MG/NS RTU 500 MG/100 ML RTUPB IV SCH ×3 (06:43→22:14)
[2018-11-05] MEDS: LISINOPRIL 10 MG TABLET PO SCH (09:31)
[2018-11-05] MEDS: MORPHINE SULFATE 10 MG/ML INJ IV PRN ×2 (09:32→22:33)
[2018-11-05] MEDS: FAMOTIDINE INJ/PF 20 MG/2 ML SDV IV SCH ×2 (09:33→22:15)
--- NOTE | 2018-11-05 09:58 | PDOC PROGRESS REPORT ---
Subjective Progress Note for:: 11/05/18 Reason For Visit: METASTATIC COLON CANCER Physical Exam Vital Signs: Temp Pulse Resp BP Pulse Ox 97.9 F 99 16 185/95 H 96 11/05/18 07:51 11/05/18 07:51 11/05/18 07:51 11/05/18 07:51 11/05/18 07:51 Intake & Output 11/04/18 11/05/18 11/06/18 06:59 06:59 06:59 Intake Total 4260 2121 100 Output Total 475 950 Balance 3785 1171 100 Weight 63.9 kg 63.8 kg General appearance: PRESENT: no acute distress Neck exam: PRESENT: full ROM Respiratory exam: PRESENT: clear to auscultation sravanthi Cardiovascular exam: PRESENT: RRR - abd soft, non tender wound clean stoma pink and productive of stool Results Laboratory Results: 11/05/18 04:09 11/02/18 05:39 11/05/18 04:09 WBC 7.5 RBC 3.98 L Hgb 12.1 L Hct 35.8 L MCV 90 MCH 30.4 MCHC 33.8 RDW 13.9 Plt Count 208 Seg Neutrophils % 75.6 Lymphocytes % 7.6 L Monocytes % 14.7 H Eosinophils % 1.6 Basophils % 0.5 Absolute Neutrophils 5.6 Absolute Lymphocytes 0.6 Absolute Monocytes 1.1 Absolute Eosinophils 0.1 Absolute Basophils 0.0 Assessment & Plan - Plan Summary Plan Summary: pt now with early return of bowel function on full liquids pt lives by himself in [place] and family planning on taking him to [place] for care and treatment upon discharge will cont full liquids today prob can be discharge in a day or two
[2018-11-05] MEDS ORDERED: IPRATROPIUM/ALBUTEROL 0.5-2.5 MG/3 ML AMPUL NEB PRN (10:01)
[2018-11-05] MEDS: HEPARIN SOD (PORCINE) 5,000 UNIT/ML 1 ML SYRINGE SUBCUT SCH ×2 (12:20→22:14)
[2018-11-05] MEDS: HYDROCHLOROTHIAZIDE 25 MG TABLET PO SCH (13:40)
[2018-11-06] MEDS: CEFAZOLIN 1 GM/D5W RTU 1 GM/50 ML RTUPB IV SCH (05:37)
[2018-11-06] MEDS: MORPHINE SULFATE 10 MG/ML INJ IV PRN ×2 (05:38→21:21)
[2018-11-06] MEDS: KETOROLAC TROMETHAMINE INJ/PF 30 MG/1 ML SDV IV SCH ×3 (05:38→17:26)
[2018-11-06] MEDS: METRONIDAZOLE 500 MG/NS RTU 500 MG/100 ML RTUPB IV SCH (05:39)
[2018-11-06] MEDS: POTASSI CL 20 MEQ/NS 1L 1,000 ML IV PRN (05:49)
[2018-11-06 06:44] LABS: ABSOLUTE BASOPHILS # (AUTO) 0.1 10^3/uL (0.0-0.2); ABSOLUTE EOSINOPHILS # (AUTO) 0.1 10^3/uL (0.0-0.6); ABSOLUTE LYMPHOCYTES (AUTO) 0.5 10^3/uL (0.5-4.7); ABSOLUTE MONOCYTES (AUTO) 1.4 10^3/uL (0.1-1.4); ABSOLUTE NEUT (AUTO) 6.5 10^3/uL (1.7-8.2); BASOPHILS % (AUTO) 0.6 % (0-2); EOSINOPHILS % (AUTO) 1.7 % (0-6); HEMOGLOBIN 12.2 g/dL (13.5-17.0); LYMPHOCYTES % (AUTO) 6.3 % (13-45); MEAN CORPUSCULAR HEMOGLOBIN 30.4 pg (27.0-33.4); MEAN CORPUSCULAR VOLUME 90 fl (80-97); MONOCYTES % (AUTO) 15.8 % (3-13); PLATELET COUNT 214 10^3/uL (150-450); RED BLOOD COUNT 4.02 10^6/uL (4.35-5.55); SEGMENTED NEUTROPHILS % (AUTO) 75.6 % (42-78); TOTAL CELLS COUNTED % (AUTO) 100 %; WHITE BLOOD COUNT 8.7 10^3/uL (4.0-10.5)
[2018-11-06] MEDS: HEPARIN SOD (PORCINE) 5,000 UNIT/ML 1 ML SYRINGE SUBCUT SCH ×2 (09:16→21:20)
[2018-11-06] MEDS: LISINOPRIL 10 MG TABLET PO SCH (09:17)
[2018-11-06] MEDS: FAMOTIDINE INJ/PF 20 MG/2 ML SDV IV SCH ×2 (09:17→21:20)
[2018-11-06] MEDS: HYDROCHLOROTHIAZIDE 25 MG TABLET PO SCH (09:17)
--- NOTE | 2018-11-06 10:36 | PDOC PROGRESS REPORT ---
Subjective Progress Note for:: 11/06/18 Reason For Visit: METASTATIC COLON CANCER Physical Exam Vital Signs: Temp Pulse Resp BP Pulse Ox 98.1 F 96 16 166/90 H 96 11/06/18 08:25 11/06/18 08:25 11/06/18 08:25 11/06/18 08:25 11/06/18 08:25 Intake & Output 11/05/18 11/06/18 11/07/18 06:59 06:59 06:59 Intake Total 2121 1836 Output Total 950 550 Balance 1171 1286 Weight 63.8 kg 61.9 kg General appearance: PRESENT: no acute distress Respiratory exam: PRESENT: clear to auscultation sravanthi Cardiovascular exam: PRESENT: RRR GI/Abdominal exam: PRESENT: other - soft, incision clean stoma pink, prodiuctive Results Laboratory Results: 11/06/18 05:42 11/02/18 05:39 11/06/18 05:42 WBC 8.7 RBC 4.02 L Hgb 12.2 L Hct 36.0 L MCV 90 MCH 30.4 MCHC 34.0 RDW 14.0 Plt Count 214 Seg Neutrophils % 75.6 Lymphocytes % 6.3 L Monocytes % 15.8 H Eosinophils % 1.7 Basophils % 0.6 Absolute Neutrophils 6.5 Absolute Lymphocytes 0.5 Absolute Monocytes 1.4 Absolute Eosinophils 0.1 Absolute Basophils 0.1 Assessment & Plan - Plan Summary Plan Summary: plan- will advnce diet hep lock ivf colostomy teaching poss home in am
[2018-11-07] MEDS: KETOROLAC TROMETHAMINE INJ/PF 30 MG/1 ML SDV IV SCH ×4 (00:10→17:21)
[2018-11-07 05:20] LABS: ABSOLUTE EOSINOPHILS # (AUTO) 0.1 10^3/uL (0.0-0.6); ABSOLUTE LYMPHOCYTES (AUTO) 0.7 10^3/uL (0.5-4.7); ABSOLUTE MONOCYTES (AUTO) 1.2 10^3/uL (0.1-1.4); ABSOLUTE NEUT (AUTO) 6.4 10^3/uL (1.7-8.2); BASOPHILS % (AUTO) 0.4 % (0-2); EOSINOPHILS % (AUTO) 1.2 % (0-6); HEMATOCRIT 37.9 % (37.9-51.0); HEMOGLOBIN 12.9 g/dL (13.5-17.0); LYMPHOCYTES % (AUTO) 7.8 % (13-45); MEAN CORPUSCULAR HEMOGLOBIN 30.4 pg (27.0-33.4); MEAN CORPUSCULAR HGB CONC 33.9 g/dL (32.0-36.0); MEAN CORPUSCULAR VOLUME 90 fl (80-97); MONOCYTES % (AUTO) 14.6 % (3-13); PLATELET COUNT 220 10^3/uL (150-450); RED BLOOD COUNT 4.22 10^6/uL (4.35-5.55); RED CELL DISTRIBUTION WIDTH 14.5 % (11.5-14.0); TOTAL CELLS COUNTED % (AUTO) 100 %; WHITE BLOOD COUNT 8.4 10^3/uL (4.0-10.5)
--- NOTE | 2018-11-07 08:55 | PDOC PROGRESS REPORT ---
Subjective Progress Note for:: 11/07/18 Reason For Visit: METASTATIC COLON CANCER Physical Exam Vital Signs: Temp Pulse Resp BP Pulse Ox 97.9 F 98 16 159/99 H 97 11/07/18 07:56 11/07/18 07:56 11/07/18 07:56 11/07/18 07:56 11/07/18 07:56 Intake & Output 11/06/18 11/07/18 11/08/18 06:59 06:59 06:59 Intake Total 1836 686 Output Total 550 990 Balance 1286 -304 Weight 61.9 kg 62.1 kg General appearance: PRESENT: no acute distress Respiratory exam: PRESENT: clear to auscultation sravanthi Cardiovascular exam: PRESENT: RRR GI/Abdominal exam: PRESENT: other - abd soft non tender stoma functioning wound clean dry Extremities exam: PRESENT: full ROM Neurological exam: PRESENT: alert, awake, oriented to time, oriented to situation Skin exam: PRESENT: dry Results Laboratory Results: 11/07/18 04:20 11/02/18 05:39 11/07/18 04:20 WBC 8.4 RBC 4.22 L Hgb 12.9 L Hct 37.9 MCV 90 MCH 30.4 MCHC 33.9 RDW 14.5 H Plt Count 220 Seg Neutrophils % 76.0 Lymphocytes % 7.8 L Monocytes % 14.6 H Eosinophils % 1.2 Basophils % 0.4 Absolute Neutrophils 6.4 Absolute Lymphocytes 0.7 Absolute Monocytes 1.2 Absolute Eosinophils 0.1 Absolute Basophils 0.0 Assessment & Plan - Plan Summary Plan Summary: pt now joel reg diet and having bowel function family unable to fruit or nut picker pt today and he wants to stay additional day for family to arrange pickup will have dc planning see pt and physical therapy eval plan on dc home in am
[2018-11-07] MEDS: MORPHINE SULFATE 10 MG/ML INJ IV PRN ×2 (10:11→20:26)
[2018-11-07] MEDS: HEPARIN SOD (PORCINE) 5,000 UNIT/ML 1 ML SYRINGE SUBCUT SCH ×2 (10:12→21:37)
[2018-11-07] MEDS: LISINOPRIL 10 MG TABLET PO SCH (10:13)
[2018-11-07] MEDS: FAMOTIDINE INJ/PF 20 MG/2 ML SDV IV SCH ×2 (10:13→21:37)
[2018-11-07] MEDS: HYDROCHLOROTHIAZIDE 25 MG TABLET PO SCH (10:13)
[2018-11-07] MEDS: HYDRALAZINE HCL INJ/PF 20 MG/1 ML SDV IV PRN (13:09)
[2018-11-08] MEDS: HYDRALAZINE HCL INJ/PF 20 MG/1 ML SDV IV PRN ×2 (00:19→11:23)
[2018-11-08] MEDS: KETOROLAC TROMETHAMINE INJ/PF 30 MG/1 ML SDV IV SCH ×2 (00:20→05:57)
[2018-11-08 05:44] LABS: ABSOLUTE BASOPHILS # (AUTO) 0.1 10^3/uL (0.0-0.2); ABSOLUTE EOSINOPHILS # (AUTO) 0.1 10^3/uL (0.0-0.6); ABSOLUTE LYMPHOCYTES (AUTO) 0.5 10^3/uL (0.5-4.7); ABSOLUTE MONOCYTES (AUTO) 1.2 10^3/uL (0.1-1.4); ABSOLUTE NEUT (AUTO) 6.2 10^3/uL (1.7-8.2); BASOPHILS % (AUTO) 0.7 % (0-2); EOSINOPHILS % (AUTO) 1.5 % (0-6); HEMATOCRIT 39.1 % (37.9-51.0); HEMOGLOBIN 13.3 g/dL (13.5-17.0); LYMPHOCYTES % (AUTO) 6.6 % (13-45); MEAN CORPUSCULAR HEMOGLOBIN 30.1 pg (27.0-33.4); MEAN CORPUSCULAR VOLUME 89 fl (80-97); MONOCYTES % (AUTO) 14.7 % (3-13); PLATELET COUNT 243 10^3/uL (150-450); RED BLOOD COUNT 4.41 10^6/uL (4.35-5.55); RED CELL DISTRIBUTION WIDTH 14.6 % (11.5-14.0); SEGMENTED NEUTROPHILS % (AUTO) 76.5 % (42-78); TOTAL CELLS COUNTED % (AUTO) 100 %; WHITE BLOOD COUNT 8.1 10^3/uL (4.0-10.5)
[2018-11-08] MEDS: MORPHINE SULFATE 10 MG/ML INJ IV PRN (09:45)
[2018-11-08] MEDS: HEPARIN SOD (PORCINE) 5,000 UNIT/ML 1 ML SYRINGE SUBCUT SCH (09:46)
[2018-11-08] MEDS: HYDROCHLOROTHIAZIDE 25 MG TABLET PO SCH (09:48)
[2018-11-08] MEDS: LISINOPRIL 10 MG TABLET PO SCH (09:48)
[2018-11-08] MEDS: FAMOTIDINE INJ/PF 20 MG/2 ML SDV IV SCH (09:48)
--- NOTE | 2018-11-08 11:36 | Discharge Summary ---
Discharge Summary (SDC) - Discharge Final Diagnosis: metastatic colon cancer Date of Surgery: 11/01/18 Condition: Fair Treatment or Instructions: pt will f/u iwth his primary physician in [facility] and for oncology f/u. Referrals: DOMINICK DELAROSA MD [ACTIVE STAFF] - (1-2 weeks. Please arrange. ) KEY MARTINEZ MD [Primary Care Provider] - Discharge Diet: As Tolerated Discharge Activity: Activity As Tolerated Home Care Assistance: Home Health Activities Provided by Home Health Agency: Physical Therapy, Occupational Therapy Report the Following to Your Physician Immediately: Shortness of Breath, Nausea, Vomiting, Increase in Pain, Yellow Skin - pt will also need a f/u in surgery clinic in 7-10 days for suture remvoval, Fever over 101 Degrees
--- NOTE | 2018-11-08 14:37 | DISCHARGE SUMMARY E ---
Discharge Summary NAME: AYE ROCKWELL : 1950 AGE: 68Y ADMITTED: 11/01/2018 DISCHARGED: 11/08/2018 DISCHARGE DIAGNOSIS: Metastatic colon cancer. ADMISSION DIAGNOSIS: Colon obstruction. REASON FOR HOSPITALIZATION/HOSPITAL COURSE: This is a 68-year-old male who was being seen by Dr. Armijo on 11/01/2018 for an elective colonoscopy. At that time an obstruction was noted at his distal transverse colon and surgical consultation was obtained directly after his colonoscopy. Because of the obstruction and the fact that he had a bowel prep, he was taken to surgery later on in the afternoon of 11/01/2018 for a decompression transverse colostomy. At the time of surgery it was noted that he had metastatic disease in his liver and biopsy was obtained. He was monitored on the floor postoperatively and had a routine benign postoperative course. His stoma began functioning approximately 2 to 3 days after surgery and he was started on a diet of clear liquids, which was slowly advanced to regular. He has been seen in consultation by Oncology by Dr. Perkins, but the patient and family request that he be followed with his primary doctor in [place] as well as Oncology followup in [place], and that will be arranged by the family. Currently he is up, able to ambulate. He is tolerating a regular diet. His wound is clean and dry with misha intact. His stoma is functioning. He will be discharged home on Percocet 10 mg/325, 1 pill q.4 p.r.n. pain. He will follow up with surgery clinic in 7 to 10 days after discharge for final staple removal and removal of his colostomy bridge. He also is known hypertensive and is lisinopril and hydrochlorothiazide at home. He was slightly hypertensive in the hospital and has been treated with hydralazine and will be given an additional dose of lisinopril prior to his discharge. DICTATING PHYSICIAN: FELICIANO PEGUERO M.D. [id number] PHY#: [id number] ID: [id number] JOB#: [id number] ACCT: [id number] cc:Tatyana [place] M.D. >
[2018-11-08 14:46] VITALS: BP 165/92
[2018-11-08] MEDS ORDERED: LISINOPRIL 10 MG TABLET PO ONE (15:30)
== END 2018-11-08 15:15 | disposition home health service (06) | DRG 330 ==
LOC: OROUT 07:59 → INOR 14:41 → 4N 19:47
PROVIDERS: ADMIT Surgery; ATTEND Surgery
PROC: 0DBL8ZX Excision of Transverse Colon, Via Natural or Artificial Opening Endoscopic, Diagnostic (ICD-10-PCS; 2018-11-01)
PROC: 0D1L0Z4 Bypass Transverse Colon to Cutaneous, Open Approach (ICD-10-PCS; principal; 2018-11-01 11:45)
PROC: 0FB10ZX Excision of Right Lobe Liver, Open Approach, Diagnostic (ICD-10-PCS; 2018-11-01 11:45)
PROC: 3E0F73Z Introduction of Anti-inflammatory into Respiratory Tract, Via Natural or Artificial Opening (ICD-10-PCS; 2018-11-02)
DX: C18.4 Malignant neoplasm of transverse colon (principal); C78.7 Secondary malignant neoplasm of liver and intrahepatic bile duct; I10 Essential (primary) hypertension; K44.9 Diaphragmatic hernia without obstruction or gangrene; M15.9 Polyosteoarthritis, unspecified; F17.210 Nicotine dependence, cigarettes, uncomplicated; K59.00 Constipation, unspecified; Z79.899 Other long term (current) drug therapy; Z88.8 Allergy status to other drugs, medicaments and biological substances; Z86.010 Personal history of colon polyps; Z79.01 Long term (current) use of anticoagulants; Z82.61 Family history of arthritis; Z82.49 Family history of ischemic heart disease and other diseases of the circulatory system; Z80.0 Family history of malignant neoplasm of digestive organs
CPT/HCPCS: 00790; 00811; 36415; 45380; 45381; 80048; 80053; 80076; 82378; 85025; 85610; 85730; 88305; 88341; 88342; 93005; 93010; 94640; 94799; C9290; J0131; J0360; J0690; J1100; J1170; J1644; J1885; J2060; J2250; J2270; J2405; J2704; J3010; J3430; J3480; J3490; S0028

== ENCOUNTER 2019-11-09 18:19 | Emergency (ER) | payer MEDICARE, MEDICAID ==
[2019-11-09] MEDS ORDERED: OXYCODONE HCL IR 5 MG TABLET PO ONE (18:33)
--- NOTE | 2019-11-09 18:34 | ER Document Report ---
ED Medical Screen (RME) - General Chief Complaint: Back Pain Stated Complaint: LEFT BACK PAIN Time Seen by Provider: 11/09/19 18:28 Primary Care Provider: KEY MARTINEZ MD [Primary Care Provider] - Follow up as needed TRAVEL OUTSIDE OF THE [place] IN LAST 30 DAYS: No - HPI Notes: 11/09/19 18:33 Patient is a 69-year-old male with a history of colon cancer on chemotherapy who presents complaining of new onset low back pain that is been present for the last 9 days, but worsening over the past few days. Patient states he has not had any recent imaging of his back. Pain does not radiate. No fever, chest pain, or shortness of breath. I have treated and performed a rapid initial assessment of this patient. A comprehensive ED assessment and evaluation of the patient, analysis of test results and completion of medical decision making process will be conducted by additional ED providers. PHYSICAL EXAMINATION: GENERAL: Well-appearing, well-nourished and in no acute distress. A&Ox4. Answers questions appropriately. - Related Data Allergies/Adverse Reactions: valsartan [From Diovan] Allergy (Unknown, Verified 11/09/19 18:28) Past Medical History - Past Medical History Cardiac Medical History: Reports: Hx Hypertension Denies: Hx Atrial Fibrillation, Hx Congestive Heart Failure, Hx Coronary Artery Disease, Hx Heart Attack, Hx Hypercholesterolemia, Hx Peripheral Vascular Disease, Hx Pulmonary Embolism, Hx Heart Murmur Pulmonary Medical History: Denies: Hx Asthma, Hx Bronchitis, Hx COPD, Hx Pneumonia, Hx Respiratory Failure, Hx Sleep Apnea, Hx Tuberculosis Neurological Medical History: Denies: Hx Cerebrovascular Accident, Hx Seizures, Hx Parkinson's Disease Endocrine Medical History: Denies: Hx Graves' Disease, Hx Hyperthyroidism, Hx Hypothyroidism Renal/ Medical History: Denies: Hx Benign Prostatic Hyperplasia, Hx End Stage Renal Disease, Hx Kidney Stones, Hx Peritoneal Dialysis Malignancy Medical History: Denies Hx Lung Cancer GI Medical History: Reports: Hx Hiatal Hernia, Hx Ulcer - bleeding ulcers, Hx Colonoscopy, Hx Endoscopy. Denies: Hx Crohn's Disease, Hx Gastroesophageal Re flux Disease, Hx Irritable Bowel, Hx Liver Failure, Hx Pancreatitis Musculoskeltal Medical History: Reports Hx Arthritis - GENERALIZED, Denies Hx Fibromyalgia, Denies Hx Multiple Sclerosis, Denies Hx Muscular Dystrophy, Reports Hx Musculoskeletal Deformity, Reports Hx Musculoskeletal Trauma, Denies Hx Systemic Lupus Erythematosus Psychiatric Medical History: Denies: Hx Bipolar Disorder, Hx Dementia, Hx Depression, Hx Post Traumatic Stress Disorder, Hx Schizophrenia Traumatic Medical History: Reports: Hx Fractures - neck-91, Hx Spine Fracture Past Surgical History: Reports: Hx Orthopedic Surgery - neck surgery. Denies: Hx Colostomy, Hx Pacemaker - Immunizations Hx Diphtheria, Pertussis, Tetanus Vaccination: - UNSURE Physical Exam - Vital signs Vitals: Temp Pulse Resp BP Pulse Ox 98.4 F 100 18 121/82 98 11/09/19 18:28 11/09/19 18:28 11/09/19 18:28 11/09/19 18:28 11/09/19 18:28 Course - Vital Signs Vital signs: Temp Pulse Resp BP Pulse Ox 98.4 F 100 18 121/82 98 11/09/19 18:28 11/09/19 18:28 11/09/19 18:28 11/09/19 18:28 11/09/19 18:28 Doctor's Discharge - Discharge Referrals: KEY MARTINEZ MD [Primary Care Provider] - Follow up as needed
--- NOTE | 2019-11-09 19:57 | RADIOLOGY REPORT (SQ) ---
EXAM DESCRIPTION: CT LUMBAR SPINE WITHOUT COMPLETED DATE/TIME: 11/09/2019 7:17 pm REASON FOR STUDY: cancer patient, chemo, new onset back pain COMPARISON: None. TECHNIQUE: Axial images acquired through the lumbar spine without intravenous contrast. Images revie wed with lung, soft tissue and bone windows. Reconstructed coronal and sagittal MPR images reviewed. Images stored on PACS. All CT scanners at this facility use dose modulation, iterative reconstruction, and/or weight based d osing when appropriate to reduce radiation dose to as low as reasonably achievable (ALARA). [facility]: Dose Right [facility]: CareDose [facility]: Dose Right [facility]: Teradose 4D [facility]: [employer] RADIATION DOSE: mGy. LIMITATIONS: None. FINDINGS: SOFT TISSUES: No soft tissue swelling. No masses. SEGMENTATION: Normal. No transitional anatomy. ALIGNMENT: Normal. VERTEBRAL BODIES: No fractures. No dislocation. No acute findings. DISCS: Mild multilevel degenerative changes. PEDICLES, TRANSVERSE PROCESSES: No fractures. No dislocation. No acute findings. FACETS, POSTERIOR ELEMENTS: No fractures. No dislocation. Moderate arthrosis. HARDWARE: None in the spine. VISUALIZED RIBS: No fractures. OTHER: No other significant finding. IMPRESSION: No acute findings. TECHNICAL DOCUMENTATION: JOB ID: [id number] Quality ID # 436: Final reports with documentation of one or more dose reduction techniques (e.g., Au tomated exposure control, adjustment of the mA and/or kV according to patient size, use of iterative reconstruction technique) 2010 [employer]- All Rights Reserved Reading location - IP/workstation name: [facility]
[2019-11-09 23:53] LABS: HEMATOCRIT 28.9 % (37.9-51.0); HEMOGLOBIN 9.6 g/dL (13.5-17.0); MEAN CORPUSCULAR HEMOGLOBIN 33.3 pg (27.0-33.4); MEAN CORPUSCULAR HGB CONC 33.2 g/dL (32.0-36.0); MEAN CORPUSCULAR VOLUME 100 fl (80-97); PLATELET COUNT 145 10^3/uL (150-450); RED BLOOD COUNT 2.88 10^6/uL (4.35-5.55); RED CELL DISTRIBUTION WIDTH 17.9 % (11.5-14.0); WHITE BLOOD COUNT 17.7 10^3/uL (4.0-10.5)
[2019-11-10] MEDS ORDERED: HYDROMORPHONE HCL INJ/PF 2 MG/ML AMPULE IV ONE (00:12)
[2019-11-10] MEDS ORDERED: NORMAL SALINE 1000 ML 1,000 ML IV ONE (00:14)
[2019-11-10] MEDS ORDERED: ONDANSETRON HCL INJ/PF 4 MG/2 ML SDV IV ONE (00:14)
[2019-11-10 00:16] LABS: ABSOLUTE LYMPHOCYTES# (MANUAL) 0.9 10^3/uL (0.5-4.7); ABSOLUTE MONOCYTES # (MANUAL) 2.1 10^3/uL (0.1-1.4); BASOPHILS % (MANUAL) 0 % (0-2); EOSINOPHILS % (MANUAL) 0 % (0-6); LYMPHOCYTES % (MANUAL) 5 % (13-45); MONOCYTES % (MANUAL) 12 % (3-13); SEGMENTED NEUTROPHILS % (MAN) 83 % (42-78); TOTAL CELLS COUNTED 100
[2019-11-10 00:18] LABS: ANISOCYTOSIS 1+; HYPOCHROMASIA 1+; PLATELET COMMENT DECREASED
[2019-11-10 00:22] LABS: ALKALINE PHOSPHATASE 1266 U/L (38-126); ANION GAP 10 (5-19); ASPARTATE AMINO TRANSFERASE 161 U/L (17-59); BILIRUBIN,DIRECT 1.1 mg/dL (0.0-0.4); BILIRUBIN,TOTAL 1.8 mg/dL (0.2-1.3); BLOOD UREA NITROGEN 8 mg/dL (7-20); CALCIUM 8.1 mg/dL (8.4-10.2); CARBON DIOXIDE 32 mmol/L (22-30); CHLORIDE 91 mmol/L (98-107); GLUCOSE 105 mg/dL (75-110); POTASSIUM 3.1 mmol/L (3.6-5.0); TOTAL PROTEIN 6.3 g/dL (6.3-8.2)
--- NOTE | 2019-11-10 00:50 | ER Document Report ---
Entered by FRANK KAPADIA SCRIBE 11/10/19 0011 Acting as scribe for:INGE JIM IV, MD ED Neck/Back Problem - General Chief Complaint: Back Pain Stated Complaint: LEFT BACK PAIN Time Seen by Provider: 11/09/19 18:28 Primary Care Provider: KEY MARTINEZ MD [Primary Care Provider] - Follow up as needed Mode of Arrival: Medic Information source: Patient Notes: This 69 year old male patient who is currently on chemotherapy for colon cancer presents to the ED today with complaints of left-sided lower back pain for the past x1 week. Patient states that he thought the pain was getting better, but it got progressively worse. Patient notes that the pain does not radiate to his groin or down his leg. Patient states that his last x-ray was about x3-4 months ago and it was normal. Significant other at bedside states that the patient's next body scan is on 11/16/2019, but the patient states that he couldn't wait that long, so he came to the ED. Patient denies any chest pain, shortness of breath, or urine discoloration. TRAVEL OUTSIDE OF THE [place] IN LAST 30 DAYS: No - Related Data Allergies/Adverse Reactions: valsartan [From LP Aminavan] Allergy (Unknown, Verified 11/09/19 18:28) Past Medical History - General Information source: Patient, [facility] Records - Social History Smoking Status: Unknown if Ever Smoked Cigarette use (# per day): No Chew tobacco use (# tins/day): No Smoking Education Provided: No Family History: Arthritis, CAD, Hyperlipidemia, Hypertension Patient has suicidal ideation: No Patient has homicidal ideation: No - Past Medical History Cardiac Medical History: Reports: Hx Hypertension Malignancy Medical History: Reports Other - Hx Colon Cancer GI Medical History: Reports: Hx Hiatal Hernia, Hx Ulcer - bleeding ulcers, Hx Colonoscopy, Hx Endoscopy Musculoskeletal Medical History: Reports Hx Arthritis - GENERALIZED, Reports Hx Musculoskeletal Deformity, Reports Hx Musculoskeletal Trauma Traumatic Medical History: Reports: Hx Fractures - neck-91, Hx Spine Fracture Past Surgical History: Reports: Hx Orthopedic Surgery - neck surgery - Immunizations Hx Diphtheria, Pertussis, Tetanus Vaccination: - UNSURE Review of Systems - Review of Systems Constitutional: No symptoms reported EENT: No symptoms reported Cardiovascular: See HPI. denies: Chest pain Respiratory: See HPI. denies: Short of breath Gastrointestinal: No symptoms reported Genitourinary: See HPI, Other - No urine discoloration. Male Genitourinary: No symptoms reported Musculoskeletal: See HPI, Back pain Skin: No symptoms reported Hematologic/Lymphatic: No symptoms reported Neurological/Psychological: No symptoms reported -: Yes All other systems reviewed and negative Physical Exam - Vital signs Vitals: Temp Pulse Resp BP Pulse Ox 98.4 F 100 18 121/82 98 11/09/19 18:28 11/09/19 18:28 11/09/19 18:28 11/09/19 18:28 11/09/19 18:28 Interpretation: Normal - General General appearance: Alert, Other - Frail appearance - HEENT Head: Normocephalic, Atraumatic Eyes: Normal Pupils: PERRL - Respiratory Respiratory status: No respiratory distress Chest status: Nontender Breath sounds: Normal Chest palpation: Normal - Cardiovascular Rhythm: Regular Heart sounds: Normal auscultation Murmur: No Friction rub: No Gallop: None auscultated - Abdominal Inspection: Normal Distension: No distension Bowel sounds: Normal Tenderness: Nontender Organomegaly: No organomegaly - Back Back: Tender - Tender to palpate in left flank. - Extremities General upper extremity: Normal inspection General lower extremity: Normal inspection - Neurological Neuro grossly intact: Yes - Psychological Associated symptoms: Normal affect, Normal mood - Skin Skin Temperature: Warm Skin Moisture: Dry Skin Color: Normal Course - Re-evaluation Re-evalutation: 11/10/19 03:59 Results of ED MSE discussed with patient. All questions were answered prior to discharge. Patient is instructed to follow-up with his oncologist. Emergency signs and symptoms, reasons to return to the emergency department discussed with the patient. - Vital Signs Vital signs: Temp Pulse Resp BP Pulse Ox 98.4 F 100 18 129/82 H 97 11/09/19 18:28 11/09/19 18:28 11/09/19 18:28 11/10/19 03:36 11/10/19 03:36 - Laboratory Result Diagrams: 11/09/19 23:40 11/09/19 23:40 Laboratory results interpreted by me: 11/09/19 11/09/19 23:40 23:40 WBC 17.7 H RBC 2.88 L Hgb 9.6 L Hct 28.9 L MCV 100 H RDW 17.9 H Plt Count 145 L Seg Neuts % (Manual) 83 H Lymphocytes % (Manual) 5 L Abs Neuts (Manual) 14.7 H Abs Monocytes (Manual) 2.1 H Sodium 133.3 L Potassium 3.1 L Chloride 91 L Carbon Dioxide 32 H Calcium 8.1 L Total Bilirubin 1.8 H Direct Bilirubin 1.1 H AST 161 H Alkaline Phosphatase 1266 H Albumin 3.0 L Discharge - Discharge 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 HOME CARE INSTRUCTIONS & INFORMATION: Thank you for choosing us for your medical needs. We hope you're satisfied with the care you received. After you leave, you must properly care for your problem and, at the same time, observe its progress. Any condition can change. Some illnesses can change rapidly over hours or days. If your condition worsens, return to the Emergency Department or see your physician promptly. ABOUT YOUR X-RAYS AND EKG'S: If you had an EKG or X-rays taken, they have been read by the Emergency Physician. The X-rays and EKG's will also be read by a Radiologist or Employment Director within 24 hours. If discrepancies are noted, you will be notified by telephone. Please be certain the ED has a correct telephone number & address where you can be reached. Also, realize that some fractures or abnormalities do not show up on initial X-rays. If your symptoms continue, see your physician. ABOUT YOUR LABORATORY TEST: If you had laboratory tests, the results have been reviewed by the Emergency Physician. Some test results (for example cultures) may not be available for several days. You will be contacted if any test result shows you need additional treatment. Please be certain the ED has a correct telephone number and address where you can be reached. ABOUT YOUR MEDICATIONS: You will receive instructions on how to take your medicine on the prescription label you receive. Additional information may be provided by the Pharmacy. If you have questions afterwards, call the ED for clarification or further instructions. Some prescribed medications may cause drowsiness. Do not perform tasks such as driving a car or operating machinery without consulting your Pharmacist. If you feel you need a refill of pain medication, your condition will need re-evaluation. Please do not call for a refill of any medication. ABOUT YOUR SIGNATURE: Signature of this document acknowledges to followin. Understanding that you received emergency treatment and that you may be released before al medical problems are known or treated. Please be certain the ED has a correct phone number & address where you can be reached. 2. Acknowledgement that you will arrange for follow-up care as recommended. 3. Authorization for the Emergency Physician to provide information to your follow-up Physician in order to maximize your care. AT ANY TIME, IF YOUR SYMPTOMS CHANGE SIGNIFICANTLY OR WORSEN OR YOU DEVELOP NEW SYMPTOMS, RETURN TO THE EMERGENCY DEPARTMENT IMMEDIATELY FOR RE-EVALUATION. OUR GOAL IS TO PROVIDE EXCELLENT MEDICAL CARE! WE HOPE THAT WE HAVE MET YOUR EXPECTATIONS DURING YOUR EMERGENCY DEPARTMENT VISIT AND THAT YOU FEEL YOU HAVE RECEIVED EXCELLENT CARE! Prescriptions: Hydromorphone HCl [Dilaudid 2 mg Tablet] 2 mg PO Q6HP PRN #10 tablet PRN Reason: pain Referrals: KEY MARTINEZ MD [Primary Care Provider] - 11/12/19 I personally performed the services described in the documentation, reviewed and edited the documentation which was dictated to the scribe in my presence, and it accurately records my words and actions.
--- NOTE | 2019-11-10 01:27 | RADIOLOGY REPORT (SQ) ---
EXAM DESCRIPTION: XR CHEST 1 VIEW COMPLETED DATE/TME: 11/10/2019 00:49 CLINICAL HISTORY: 69 years, Male, port evaluation COMPARISON: 07/18/12 NUMBER OF VIEWS: One TECHNIQUE: AP view of the chest LIMITATIONS: None. FINDINGS: The lungs are clear. The heart is normal in size. There is no pneumothorax or pleural effusion. The right chest wall port terminates in the SVC. Bones are unremarkable. IMPRESSION: No acute cardiopulmonary abnormality. Satisfactory position of the right port without complication. copyright 2010 [employer]- All Rights Reserved
--- NOTE | 2019-11-10 03:00 | RADIOLOGY REPORT (SQ) ---
EXAM DESCRIPTION: CT ABDOMEN PELVIS WITH IV CONTRAST additional delayed imaging COMPLETED DATE/TME: 11/10/2019 00:15 CLINICAL HISTORY: 69 years, Male, left flank pain, h/o metastatic colon cancer COMPARISON: None. TECHNIQUE: Images stored on PACS. All CT scanners at this facility use dose modulation, iterative reconstruction, and/or weight based dosing when appropriate to reduce radiation dose to as low as reasonably achievable (ALARA). [facility]: Dose Right [facility]: CareDose [facility]: Dose Right [facility]: Teradose 4D [facility]: [employer] LIMITATIONS: None. FINDINGS: The lung bases are grossly clear. Chronic changes. The heart is enlarged with coronary calcification. No pleural or pericardial fluid. The liver is heterogeneous. Innumerable mass lesions are identified primarily involving right lobe the liver and medial segment left lobe of the liver. Some of these demonstrate mild hyperdensity. Presumed metastatic disease. Has there been chemoembolization? The gallbladder is contracted. The pancreas appears homogeneous. The spleen appears normal. Fullness adrenals bilaterally. Kidneys are unremarkable. Aortic calcification. The bowel is nonobstructed. Diverticula disease of the colon. An ostomy is identified appears to loop colostomy left upper quadrant. The appendix is not seen. Small amount of fluid. This includes more focal perihepatic fluid. No free air. Visualized bones definite osteoarthritis. Osseous metastatic disease of T10 with destruction of the left pedicle and transverse process. Associated destruction of the left 10th rib near the costovertebral junction. ankylosing arthropathy of the thoracic spine IMPRESSION: Metastatic disease. Possible chemoembolization changes. Please correlate with history. Osseous metastatic disease. Postsurgical change from loop colostomy. TECHNICAL DOCUMENTATION: Quality ID # 436: Final reports with documentation of one or more dose reduction techniques (e.g., Automated exposure control, adjustment of the mA and/or kV according to patient size, use of iterative reconstruction technique) copyright 2011 [employer]- All Rights Reserved
[2019-11-10 04:29] VITALS: BP 129/88
== END 2019-11-10 04:29 | disposition home or self-care (01) ==
LOC: ER 18:19
DX: M54.5 Low back pain (principal); C18.9 Malignant neoplasm of colon, unspecified; C79.51 Secondary malignant neoplasm of bone; I10 Essential (primary) hypertension; Z79.899 Other long term (current) drug therapy
CPT/HCPCS: 36591; 99284; 96361; 96374; 96375; 36415; 85025; 80053; 71045; 72131; 74177; J1170; J2405; J7030; A9270

== ENCOUNTER 2019-11-14 12:33 | Emergency (ER) | payer MEDICARE, MEDICAID ==
--- NOTE | 2019-11-14 13:47 | ER Document Report ---
ED Medical Screen (RME) - General Stated Complaint: FALL,BACK PAIN Time Seen by Provider: 11/14/19 13:40 Primary Care Provider: KEY MARTINEZ MD [Primary Care Provider] - Follow up as needed Notes: 69-year-old male with history of colon cancer currently on chemo presents for multiple falls in the last 5 days. Patient is not sure why he fell. Patient's oncologist is in [place]. Patient was hypotensive systolic in the 70s with EMS. Patient has tenderness to the T and L-spine. Patient is also complaining of bilateral forearm pain. Wound dressings were applied by EMS to bilateral forearms. I have greeted and performed a rapid initial assessment of this patient. A comprehensive ED assessment and evaluation of the patient, analysis of test results and completion of the medical decision making process with be conducted by additional ED providers. TRAVEL OUTSIDE OF THE [place] IN LAST 30 DAYS: No - Related Data Allergies/Adverse Reactions: valsartan [From Diovan] Allergy (Unknown, Verified 11/14/19 13:40) Past Medical History - Past Medical History Cardiac Medical History: Reports: Hx Hypertension Denies: Hx Atrial Fibrillation, Hx Congestive Heart Failure, Hx Coronary Artery Disease, Hx Heart Attack, Hx Hypercholesterolemia, Hx Peripheral Vascular Disease, Hx Pulmonary Embolism, Hx Heart Murmur Pulmonary Medical History: Denies: Hx Asthma, Hx Bronchitis, Hx COPD, Hx Pneumonia, Hx Respiratory Failure, Hx Sleep Apnea, Hx Tuberculosis Neurological Medical History: Denies: Hx Cerebrovascular Accident, Hx Seizures, Hx Parkinson's Disease Endocrine Medical History: Denies: Hx Graves' Disease, Hx Hyperthyroidism, Hx Hypothyroidism Renal/ Medical History: Denies: Hx Benign Prostatic Hyperplasia, Hx End Stage Renal Disease, Hx Kidney Stones, Hx Peritoneal Dialysis Malignancy Medical History: Denies Hx Lung Cancer GI Medical History: Reports: Hx Hiatal Hernia, Hx Ulcer - bleeding ulcers, Hx Colonoscopy, Hx Endoscopy. Denies: Hx Crohn's Disease, Hx Gastroesophageal Reflux Disease, Hx Irritable Bowel, Hx Liver Failure, Hx Pancreatitis Musculoskeltal Medical History: Reports Hx Arthritis - GENERALIZED, Denies Hx Fibromyalgia, Denies Hx Multiple Sclerosis, Denies Hx Muscular Dystrophy, Reports Hx Musculoskeletal Deformity, Reports Hx Musculoskeletal Trauma, Denies Hx Systemic Lupus Erythematosus Psychiatric Medical History: Denies: Hx Bipolar Disorder, Hx Dementia, Hx Depression, Hx Post Traumatic Stress Disorder, Hx Schizophrenia Traumatic Medical History: Reports: Hx Fractures - neck-91, Hx Spine Fracture Past Surgical History: Reports: Hx Orthopedic Surgery - neck surgery. Denies: Hx Colostomy, Hx Pacemaker - Immunizations Hx Diphtheria, Pertussis, Tetanus Vaccination: - UNSURE Physical Exam - Vital signs Vitals: Temp Pulse Resp BP Pulse Ox 97.6 F 93 18 115/95 H 99 11/14/19 13:25 11/14/19 13:25 11/14/19 13:25 11/14/19 13:25 11/14/19 13:25 Course - Vital Signs Vital signs: Temp Pulse Resp BP Pulse Ox 97.6 F 93 18 115/95 H 99 11/14/19 13:25 11/14/19 13:25 11/14/19 13:25 11/14/19 13:25 11/14/19 13:25 Doctor's Discharge - Discharge Referrals: KEY MARTINEZ MD [Primary Care Provider] - Follow up as needed
--- NOTE | 2019-11-14 14:34 | RADIOLOGY REPORT (SQ) ---
EXAM DESCRIPTION: T SPINE AP/LAT COMPLETED DATE/TIME: 11/14/2019 2:16 pm REASON FOR STUDY: T spine tenderness, multiple falls x 5 days COMPARISON: None. NUMBER OF VIEWS: Two views. TECHNIQUE: AP and lateral radiographic images acquired of the thoracic spine. LIMITATIONS: None. FINDINGS: MINERALIZATION: Normal. ALIGNMENT: There is scoliosis with concavity toward the right. VERTEBRAE: No fracture or bone lesion. Maintained height, normal segmentation. DISCS: Multilevel disc space narrowing with osteophytes. HARDWARE: None in the spine. MEDIASTINUM AND SOFT TISSUES: Normal heart size and aortic contour. No soft tissue abnormality. VISUALIZED LUNG KHAN: Clear. OTHER: Right-sided Rrneoc-P-Kezh is in place. IMPRESSION: Degenerative changes. No acute findings. Mild scoliosis with concavity toward the righ t. This could be positional. TECHNICAL DOCUMENTATION: JOB ID: [id number] 2010 [employer]- All Rights Reserved Reading location - IP/workstation name: [email or web address]
--- NOTE | 2019-11-14 14:35 | RADIOLOGY REPORT (SQ) ---
EXAM DESCRIPTION: FOREARM BILATERAL 2 VIEWS COMPLETED DATE/TIME: 11/14/2019 2:16 pm REASON FOR STUDY: bilateral forearm pain, multiple falls x 5 days COMPARISON: None. NUMBER OF VIEWS: Two views. TECHNIQUE: Two radiographic images acquired of the right and left forearm, including elbow and wrist in at least one projection. LIMITATIONS: None. FINDINGS: MINERALIZATION: Normal. BONES: No acute fracture. No worrisome bone lesions. SOFT TISSUES: No obvious swelling or foreign body. OTHER: No other significant finding. IMPRESSION: NEGATIVE STUDY OF THE RIGHT AND LEFT FOREARM. NO RADIOGRAPHIC EVIDENCE OF ACUTE INJURY. TECHNICAL DOCUMENTATION: JOB ID: [id number] 2010 [employer]- All Rights Reserved Reading location - IP/workstation name: [email or web address]
--- NOTE | 2019-11-14 14:35 | RADIOLOGY REPORT (SQ) ---
EXAM DESCRIPTION: L SPINE WHOLE COMPLETED DATE/TIME: 11/14/2019 2:16 pm REASON FOR STUDY: L spine tenderness, multiple falls x 5 days COMPARISON: 06/30/2012 NUMBER OF VIEWS: Five views including obliques. TECHNIQUE: AP, lateral, oblique, and sacral radiographic images acquired of the lumbar spine. LIMITATIONS: None. FINDINGS: MINERALIZATION: Normal. SEGMENTATION: Normal. No transitional anatomy. ALIGNMENT: Normal. VERTEBRAE: Maintained height. No fracture or worrisome bone lesion. DISCS: Multilevel disc space narrowing with osteophytes. POSTERIOR ELEMENTS: Pedicles and facets are intact. No pars defect or posterior arch defects. Facet arthropathy is present. HARDWARE: None in the spine. PARASPINAL SOFT TISSUES: Calcified plaque noted in the abdominal aorta. No aneurysmal dilatation. O stomy site noted in the left lower quadrant. PELVIS: Intact as visualized. No fractures or worrisome bone lesions. SI joints intact. OTHER: No other significant finding. IMPRESSION: SPONDYLOSIS WITHOUT BONE LESION OR FRACTURE. TECHNICAL DOCUMENTATION: JOB ID: [id number] 2010 [employer]- All Rights Reserved Reading location - IP/workstation name: [email or web address]
--- NOTE | 2019-11-14 14:36 | RADIOLOGY REPORT (SQ) ---
EXAM DESCRIPTION: CT HEAD WITHOUT COMPLETED DATE/TIME: 11/14/2019 2:28 pm REASON FOR STUDY: multiple falls x 5 days COMPARISON: None. TECHNIQUE: Axial images acquired through the brain without intravenous contrast. Images reviewed wi th bone, brain and subdural windows. Additional sagittal and coronal reconstructions were generated. Images stored on PACS. All CT scanners at this facility use dose modulation, iterative reconstruction, and/or weight based d osing when appropriate to reduce radiation dose to as low as reasonably achievable (ALARA). [facility]: Dose Right [facility]: CareDose [facility]: Dose Right [facility]: Teradose 4D [facility]: ITN RADIATION DOSE: CT Rad equipment meets quality standard of care and radiation dose reduction techniq ues were employed. CTDIvol: 53.2 mGy. DLP: 1044 mGy-cm. mGy. LIMITATIONS: None. FINDINGS: VENTRICLES: Prominent. CEREBRUM: No masses. No hemorrhage. No midline shift. Areas of low density in the white matter mos t likely due to chronic micro-vascular ischemic change. No evidence for acute infarction. CEREBELLUM: No masses. No hemorrhage. No alteration of density. No evidence for acute infarction. EXTRAAXIAL SPACES: Mild age-related involutional change. No fluid collections. No masses. ORBITS AND GLOBE: No intra- or extraconal masses. Normal contour of globe without masses. CALVARIUM: No fracture. PARANASAL SINUSES: There is mucosal thickening in the right maxillary sinus. There is right sphenoid sinusitis. SOFT TISSUES: No mass or hematoma. OTHER: No other significant finding. IMPRESSION: 1. Mild atrophy and small-vessel ischemic changes. No acute intracranial event. 2. Right sphenoid and maxillary sinusitis. EVIDENCE OF ACUTE STROKE: NO. TECHNICAL DOCUMENTATION: JOB ID: [id number] Quality ID # [id number]: Final reports with documentation of one or more dose reduction techniques (e.g., Au tomated exposure control, adjustment of the mA and/or kV according to patient size, use of iterative reconstruction technique) 2010 [employer]- All Rights Reserved Reading location - IP/workstation name: [email or web address]
--- NOTE | 2019-11-14 14:39 | RADIOLOGY REPORT (SQ) ---
EXAM DESCRIPTION: CT CERVICAL SPINE WITHOUT COMPLETED DATE/TIME: 11/14/2019 2:28 pm REASON FOR STUDY: multiple falls x 5 days COMPARISON: None. TECHNIQUE: Axial images acquired through the cervical spine without intravenous contrast. Images re viewed with lung, soft tissue and bone windows. Reconstructed coronal and sagittal MPR images review ed. Images stored on PACS. All CT scanners at this facility use dose modulation, iterative reconstruction, and/or weight based d osing when appropriate to reduce radiation dose to as low as reasonably achievable (ALARA). [facility]: Dose Right [facility]: CareDose [facility]: Dose Right [facility]: Teradose 4D [facility]: JasonDB RADIATION DOSE: CT Rad equipment meets quality standard of care and radiation dose reduction techniq ues were employed. CTDIvol: 12.1 mGy. DLP: 229 mGy-cm. mGy. LIMITATIONS: None. FINDINGS: ALIGNMENT: Anatomic. MINERALIZATION: Normal. VERTEBRAL BODIES: No fracture dislocation. Indeterminate lytic lesion in the body of T1. DISCS: Multilevel disc space narrowing with osteophytes. FACETS, LATERAL MASSES, POSTERIOR ELEMENTS: Prior posterior decompression from C5 through C7. HARDWARE: None in the spine. VISUALIZED RIBS: No fractures. LUNG APICES AND SOFT TISSUES: No significant or acute findings. OTHER: No other significant finding. IMPRESSION: 1. Postsurgical and degenerative changes in the cervical spine. No acute findings. 2. Indeterminate lytic lesion in the body of T1. This is not apparent on conventional radiographs. Recommend bone scan for further evaluation. TECHNICAL DOCUMENTATION: JOB ID: [id number] Quality ID # [id number]: Final reports with documentation of one or more dose reduction techniques (e.g., Au tomated exposure control, adjustment of the mA and/or kV according to patient size, use of iterative reconstruction technique) 2010 [employer]- All Rights Reserved Reading location - IP/workstation name: [email or web address]
[2019-11-14 16:17] LABS: ABSOLUTE BASOPHILS # (AUTO) 0.1 10^3/uL (0.0-0.2); ABSOLUTE LYMPHOCYTES (AUTO) 0.7 10^3/uL (0.5-4.7); ABSOLUTE MONOCYTES (AUTO) 1.6 10^3/uL (0.1-1.4); ABSOLUTE NEUT (AUTO) 10.5 10^3/uL (1.7-8.2); BASOPHILS % (AUTO) 0.8 % (0-2); HEMATOCRIT 26.4 % (37.9-51.0); HEMOGLOBIN 8.8 g/dL (13.5-17.0); LYMPHOCYTES % (AUTO) 5.5 % (13-45); MEAN CORPUSCULAR HEMOGLOBIN 33.9 pg (27.0-33.4); MEAN CORPUSCULAR HGB CONC 33.5 g/dL (32.0-36.0); MEAN CORPUSCULAR VOLUME 101 fl (80-97); MONOCYTES % (AUTO) 12.5 % (3-13); RED CELL DISTRIBUTION WIDTH 18.6 % (11.5-14.0); SEGMENTED NEUTROPHILS % (AUTO) 81.2 % (42-78); TOTAL CELLS COUNTED % (AUTO) 100 %; WHITE BLOOD COUNT 12.9 10^3/uL (4.0-10.5)
[2019-11-14] MEDS ORDERED: ONDANSETRON HCL INJ/PF 4 MG/2 ML SDV IV ONE (16:18)
[2019-11-14] MEDS ORDERED: FENTANYL CITRATE INJ/PF 100 MCG/2 ML AMPUL IV ONE (16:18)
[2019-11-14 16:29] LABS: ALBUMIN 2.7 g/dL (3.5-5.0); ALKALINE PHOSPHATASE 1287 U/L (38-126); ANION GAP 7 (5-19); ASPARTATE AMINO TRANSFERASE 271 U/L (17-59); BILIRUBIN,TOTAL 2.9 mg/dL (0.2-1.3); BLOOD UREA NITROGEN 12 mg/dL (7-20); CALCIUM 8.2 mg/dL (8.4-10.2); CARBON DIOXIDE 34 mmol/L (22-30); CHLORIDE 91 mmol/L (98-107); GLUCOSE 133 mg/dL (75-110); POTASSIUM 3.5 mmol/L (3.6-5.0)
[2019-11-14 16:52] LABS: PLATELET COUNT 96 10^3/uL (150-450)
[2019-11-14] MEDS ORDERED: HYDROCODONE/ACETAMINOPHEN 5-325 MG (6 TAB/ER DISP) PO PRN (18:37)
--- NOTE | 2019-11-14 18:52 | ER Document Report ---
Entered by STEVEN JO SCRIBE 11/14/19 [id number] Acting as scribe for:DAVY STEVENS DO ED Fall - General Chief Complaint: Fall Stated Complaint: FALL,BACK PAIN Time Seen by Provider: 11/14/19 13:40 Primary Care Provider: KEY CARRERA MD [Primary Care Provider] - Follow up as needed Information source: Patient Notes: This 69 year old male patient presents to the emergency department today after a mechanical fall. Patient relies on a walker for ambulation and got his walker stuck on something causing him to fall. Patient only complains of skin tears to bilateral forearms. TRAVEL OUTSIDE OF THE [place] IN LAST 30 DAYS: No - Related data Allergies/Adverse Reactions: valsartan [From Diovan] Allergy (Unknown, Verified 11/14/19 13:40) hydromorphone Allergy (Verified 11/21/19 08:52) Past Medical History - General Information source: Patient - Social History Smoking Status: Current Every Day Smoker Cigarette use (# per day): Yes Frequency of alcohol use: None Drug Abuse: None Family History: Arthritis, CAD, Hyperlipidemia, Hypertension Patient has suicidal ideation: No Patient has homicidal ideation: No - Past Medical History Cardiac Medical History: Reports: Hx Hypertension Denies: Hx Atrial Fibrillation, Hx Congestive Heart Failure, Hx Coronary Artery Disease, Hx Heart Attack, Hx Hypercholesterolemia, Hx Peripheral Vascular Disease, Hx Pulmonary Embolism, Hx Heart Murmur Pulmonary Medical History: Denies: Hx Asthma, Hx Bronchitis, Hx COPD, Hx Pneumonia, Hx Respiratory Failure, Hx Sleep Apnea, Hx Tuberculosis Neurological Medical History: Denies: Hx Cerebrovascular Accident, Hx Seizures, Hx Parkinson's Disease Endocrine Medical History: Denies: Hx Graves' Disease, Hx Hyperthyroidism, Hx Hypothyroidism Renal/ Medical History: Denies: Hx Benign Prostatic Hyperplasia, Hx End Stage Renal Disease, Hx Kidney Stones, Hx Peritoneal Dialysis Malignancy Medical History: Denies Hx Lung Cancer GI Medical History: Reports: Hx Hiatal Hernia, Hx Ulcer - bleeding ulcers, Hx Colonoscopy, Hx Endoscopy. Denies: Hx Crohn's Disease, Hx Gastroesophageal Reflux Disease, Hx Irritable Bowel, Hx Liver Failure, Hx Pancreatitis Musculoskeletal Medical History: Reports Hx Arthritis - GENERALIZED, Denies Hx Fibromyalgia, Denies Hx Multiple Sclerosis, Denies Hx Muscular Dystrophy, Reports Hx Musculoskeletal Deformity, Reports Hx Musculoskeletal Trauma, Denies Hx Systemic Lupus Erythematosus Psychiatric Medical History: Denies: Hx Bipolar Disorder, Hx Dementia, Hx Depression, Hx Post Traumatic Stress Disorder, Hx Schizophrenia Traumatic Medical History: Reports: Hx Fractures - neck-91, Hx Spine Fracture Past Surgical History: Reports: Hx Bowel Surgery - colostomy, Hx Orthopedic Surgery - neck surgery. Denies: Hx Colostomy, Hx Pacemaker - Immunizations Hx Diphtheria, Pertussis, Tetanus Vaccination: - UNSURE Review of Systems - Review of Systems Constitutional: See HPI, Other - fall EENT: No symptoms reported Cardiovascular: No symptoms reported Respiratory: No symptoms reported Gastrointestinal: No symptoms reported Genitourinary: No symptoms reported Male Genitourinary: No symptoms reported Musculoskeletal: No symptoms reported Skin: See HPI, Other - skin tears Hematologic/Lymphatic: No symptoms reported Neurological/Psychological: No symptoms reported -: Yes All other systems reviewed and negative Physical Exam - Vital signs Vitals: Temp Pulse Resp BP Pulse Ox 97.6 F 93 18 115/95 H 99 11/14/19 13:25 11/14/19 13:25 11/14/19 13:25 11/14/19 13:25 11/14/19 13:25 - Notes Notes: Physical Exam: General: Alert, appears chronically ill, cachectic, much older than stated age. HEENT: Normocephalic. Atraumatic. PERRL. Extraocular movements intact. Oropharynx clear. Temporal wasting. Neck: Supple. Non-tender. Respiratory: No respiratory distress. Clear and equal breath sounds bilaterally. Port in right anterior chest. Cardiovascular: Regular rate and rhythm. Abdominal: Normal Inspection. Non-tender. No distension. Normal Bowel Sounds. Back: No gross abnormalities. Extremities: Moves all four extremities. Upper extremities: Normal inspection. Normal ROM. Lower extremities: 3+ edema in right lower extremity. Neurological: Normal cognition. AAOx4. Normal speech. Psychological: Normal affect. Normal Mood. Skin: Skin tears to bilateral forearms. Bruises in various stages of healing. Course - Re-evaluation Re-evalutation: 11/14/19 18:24 MDM Unfortunate frail male - cancer pt (Colon cancer) with decreased functional ability at home - fell due to trip over walker and is here with bilateral arm skin tears. No loc. Head ct and other ct's are reassuring regarding acute injury, however T1 may have met. No evidence of cord compression here. He will need a bone scan in follow up and we discussed this. Additionally he would like to go home and pain is better here. Some chronic anemia is noted and he continues to be a fall risk. This was discussed with him and his family and understanding was expressed. 11/14/19 18:36 He has follow up with Dr. Carrera for bone scan Tuesday. - Vital Signs Vital signs: Temp Pulse Resp BP Pulse Ox 98.1 F 94 18 132/76 H 98 11/14/19 19:04 11/14/19 19:04 11/14/19 19:04 11/14/19 19:04 11/14/19 19:04 - Laboratory Result Diagrams: 11/14/19 16:02 11/14/19 16:02 Laboratory results interpreted by me: 11/14/19 11/14/19 16:02 16:02 WBC 12.9 H RBC 2.60 L Hgb 8.8 L Hct 26.4 L MCV 101 H MCH 33.9 H RDW 18.6 H Plt Count 96 L Lymph % (Auto) 5.5 L Absolute Neuts (auto) 10.5 H Absolute Monos (auto) 1.6 H Seg Neutrophils % 81.2 H Sodium 132.2 L Potassium 3.5 L Chloride 91 L Carbon Dioxide 34 H Glucose 133 H Calcium 8.2 L Total Bilirubin 2.9 H Direct Bilirubin 2.0 H AST 271 H Alkaline Phosphatase 1287 H Total Protein 6.0 L Albumin 2.7 L - Diagnostic Test Radiology reviewed: Reports reviewed - EKG Interpretation by Me EKG shows normal: Sinus rhythm Rate: Normal Rhythm: NSR - NSR Nl axis RBBB [address] elevation or depression my interpretation. Discharge - Discharge Clinical Impression: Fall Qualifiers: Encounter type: initial encounter Qualified Code(s): W19.XXXA - Unspecified fall, initial encounter Colon cancer Qualifiers: Colon location: unspecified part of colon Qualified Code(s): C18.9 - Malignant neoplasm of colon, unspecified Anemia Qualifiers: Chronic kidney disease stage: stage 3 (moderate) Disposition: HOME, SELF-CARE Instructions: Anemia ([facility]), Weakness ([facility]) Additional Instructions: You continue to be at risk of falling. Take your medicines as directed. Call your doctor tomorrow to arrange follow up. There is a need for a bone scan to look more closely at your spine. Please return here for any problems or any concerns. Referrals: KEY CARRERA MD [Primary Care Provider] - Follow up as needed I personally performed the services described in the documentation, reviewed and edited the documentation which was dictated to the scribe in my presence, and it accurately records my words and actions.
[2019-11-14 19:07] VITALS: BP 132/76
--- NOTE | 2019-11-14 22:31 | EKG REPORT ---
SEVERITY:- ABNORMAL ECG - SINUS RHYTHM RIGHT BUNDLE BRANCH BLOCK : Confirmed by: Josette Barber 14-Nov-2019 22:30:21
--- NOTE | 2019-11-15 07:59 | XCELERA REPORT ---
[address] [facility] [address] Lower Extremity Venous Evaluation Procedure: Color flow and duplex imaging bilaterally of the veins of the lower extremities as well as the Common Femoral veins. Right Sided Venous Evaluation Normal vessel filling wall to wall, compression and augmentation as well as Colour flow down to the infrageniculate veins. Left Sided Venous Evaluation Normal vessel filling wall to wall, compression and augmentation as well as Colour flow down to the infrageniculate veins. Interpretation Summary No duplex evidence of DVT or obstruction in the bilateral lower extremities. Name: AYE ROCKWELL Age: 69 yrs Gender: Male : 1950 Patient Status: Emergency Patient Location: ER Study Date: 11/14/2019 05:29 PM Reason For Study: leg swelling/ cancer Ordering Physician: DAYV STEVENS Performed By: Magy Cagle : DAVY STEVENS > Vishal Sarabia
== END 2019-11-14 19:06 | disposition home or self-care (01) ==
LOC: ER 12:33
DX: S51.812A Laceration without foreign body of left forearm, initial encounter (principal); S51.811A Laceration without foreign body of right forearm, initial encounter; T14.8XXA Other injury of unspecified body region, initial encounter; W01.0XXA Fall on same level from slipping, tripping and stumbling without subsequent striking against object, initial encounter; I12.9 Hypertensive chronic kidney disease with stage 1 through stage 4 chronic kidney disease, or unspecified chronic kidney disease; N18.3 Chronic kidney disease, stage 3 (moderate); D63.1 Anemia in chronic kidney disease; C18.9 Malignant neoplasm of colon, unspecified; I45.10 Unspecified right bundle-branch block; R60.0 Localized edema; F17.210 Nicotine dependence, cigarettes, uncomplicated; Z88.8 Allergy status to other drugs, medicaments and biological substances; Z88.6 Allergy status to analgesic agent; Z88.5 Allergy status to narcotic agent
CPT/HCPCS: 93005; 36591; 99284; 96374; 96375; 36415; 83605; 83735; 85025; 80053; 84484; 93970 ×2; 72110; 72070; 73090; 70450; 72125; 93010; J3010; J2405; A9270; J1642

== ENCOUNTER 2019-11-21 08:31 | Inpatient (IN) | payer MEDICARE, MEDICAID ==
[2019-11-21 09:50] LABS: ABSOLUTE BASOPHILS # (AUTO) 0.1 10^3/uL (0.0-0.2); ABSOLUTE EOSINOPHILS # (AUTO) 0.1 10^3/uL (0.0-0.6); ABSOLUTE LYMPHOCYTES (AUTO) 1.2 10^3/uL (0.5-4.7); ABSOLUTE MONOCYTES (AUTO) 0.8 10^3/uL (0.1-1.4); ABSOLUTE NEUT (AUTO) 8.2 10^3/uL (1.7-8.2); BASOPHILS % (AUTO) 0.6 % (0-2); EOSINOPHILS % (AUTO) 1.1 % (0-6); HEMOGLOBIN 9.7 g/dL (13.5-17.0); LYMPHOCYTES % (AUTO) 11.7 % (13-45); MEAN CORPUSCULAR HEMOGLOBIN 33.9 pg (27.0-33.4); MEAN CORPUSCULAR HGB CONC 33.6 g/dL (32.0-36.0); MEAN CORPUSCULAR VOLUME 101 fl (80-97); PLATELET COUNT 101 10^3/uL (150-450); RED BLOOD COUNT 2.87 10^6/uL (4.35-5.55); RED CELL DISTRIBUTION WIDTH 18.8 % (11.5-14.0); SEGMENTED NEUTROPHILS % (AUTO) 78.6 % (42-78); TOTAL CELLS COUNTED % (AUTO) 100 %; WHITE BLOOD COUNT 10.5 10^3/uL (4.0-10.5)
[2019-11-21 10:02] LABS: ALBUMIN 2.7 g/dL (3.5-5.0); ALKALINE PHOSPHATASE 1240 U/L (38-126); ANION GAP 7 (5-19); ASPARTATE AMINO TRANSFERASE 242 U/L (17-59); BILIRUBIN,DIRECT 4.2 mg/dL (0.0-0.4); BILIRUBIN,TOTAL 5.5 mg/dL (0.2-1.3); BLOOD UREA NITROGEN 12 mg/dL (7-20); CALCIUM 8.2 mg/dL (8.4-10.2); CARBON DIOXIDE 30 mmol/L (22-30); CHLORIDE 94 mmol/L (98-107); GLUCOSE 84 mg/dL (75-110); POTASSIUM 4.1 mmol/L (3.6-5.0); TOTAL PROTEIN 5.9 g/dL (6.3-8.2)
--- NOTE | 2019-11-21 12:45 | RADIOLOGY REPORT (SQ) ---
EXAM DESCRIPTION: CT HEAD WITHOUT COMPLETED DATE/TIME: 11/21/2019 12:27 pm REASON FOR STUDY: ams COMPARISON: 11/14/2019 TECHNIQUE: Axial images acquired through the brain without intravenous contrast. Images reviewed wi th bone, brain and subdural windows. Additional sagittal and coronal reconstructions were generated. Images stored on PACS. All CT scanners at this facility use dose modulation, iterative reconstruction, and/or weight based d osing when appropriate to reduce radiation dose to as low as reasonably achievable (ALARA). [facility]: Dose Right [facility]: CareDose [facility]: Dose Right [facility]: Teradose 4D [facility]: Cabeo RADIATION DOSE: CT Rad equipment meets quality standard of care and radiation dose reduction techniq ues were employed. CTDIvol: 53.2 mGy. DLP: 991 mGy-cm. mGy. LIMITATIONS: None. FINDINGS: VENTRICLES: Prominent. CEREBRUM: No masses. No hemorrhage. No midline shift. Areas of low density in the white matter mos t likely due to chronic micro-vascular ischemic change. No evidence for acute infarction. CEREBELLUM: No masses. No hemorrhage. No alteration of density. No evidence for acute infarction. EXTRAAXIAL SPACES: Mild age-related involutional change. No fluid collections. No masses. ORBITS AND GLOBE: No intra- or extraconal masses. Normal contour of globe without masses. CALVARIUM: No fracture. PARANASAL SINUSES: Mucosal thickening in the right maxillary and sphenoid sinus is again noted. SOFT TISSUES: No mass or hematoma. OTHER: No other significant finding. IMPRESSION: MILD CHRONIC CHANGES OF ATROPHY AND MICROVASCULAR ISCHEMIA. NO ACUTE PROCESS. EVIDENCE OF ACUTE STROKE: NO. TECHNICAL DOCUMENTATION: JOB ID: [id number] Quality ID # [id number]: Final reports with documentation of one or more dose reduction techniques (e.g., Au tomated exposure control, adjustment of the mA and/or kV according to patient size, use of iterative reconstruction technique) 2010 [employer]- All Rights Reserved Reading location - IP/workstation name: [email or web address]
--- NOTE | 2019-11-21 14:06 | ER Document Report ---
ED General - General Chief Complaint: Wound Recheck Stated Complaint: POSSIBLE HEMORRHAGE Time Seen by Provider: 11/21/19 10:58 Primary Care Provider: KEY MARTINEZ MD [Primary Care Provider] - Follow up as needed Information source: Patient, Relative TRAVEL OUTSIDE OF THE [place] IN LAST 30 DAYS: No - HPI Notes: Patient is brought in by family for several reasons. Patient has metastatic colon cancer with a colostomy. Family states today when they were changing his colostomy bag he began to bleed significantly from the stoma. They put on a new bag and there is been no further bleeding. They also state that over the last 4 to 5 days patient become progressively weaker. He is unable to stand or walk. He has fallen multiple times and has multiple skin tears. He has also had some altered mental status. In addition he has had some trouble speaking per family. Patient denies any current pain other than on the left forearm. He has some m inor pain to the left forearm where he had a fall this morning. It is a sharp pain. It is constant. It radiates up the left arm. It is worse with movement and better with rest. He has also had some abdominal discomfort and distention. No vomiting. Patient was due to have chemotherapy at [facility] today. - Related Data Allergies/Adverse Reactions: valsartan [From Diovan] Allergy (Unknown, Verified 11/14/19 13:40) hydromorphone Allergy (Verified 11/21/19 08:52) Past Medical History - General Information source: Patient, Relative - Social History Smoking Status: Current Every Day Smoker Chew tobacco use (# tins/day): No Frequency of alcohol use: None Drug Abuse: None Family History: Arthritis, CAD, Hyperlipidemia, Hypertension Patient has suicidal ideation: No Patient has homicidal ideation: No - Past Medical History Cardiac Medical History: Reports: Hx Hypertension Denies: Hx Atrial Fibrillation, Hx Congestive Heart Failure, Hx Coronary Artery Disease, Hx Heart Attack, Hx Hypercholesterolemia, Hx Peripheral Vascular Disease, Hx Pulmonary Embolism, Hx Heart Murmur Pulmonary Medical History: Denies: Hx Asthma, Hx Bronchitis, Hx COPD, Hx Pneumonia, Hx Respiratory Failure, Hx Sleep Apnea, Hx Tuberculosis Neurological Medical History: Denies: Hx Cerebrovascular Accident, Hx Seizures, Hx Parkinson's Disease Endocrine Medical History: Denies: Hx Graves' Disease, Hx Hyperthyroidism, Hx Hypothyroidism Renal/ Medical History: Denies: Hx Benign Prostatic Hyperplasia, Hx End Stage Renal Disease, Hx Kidney Stones, Hx Peritoneal Dialysis Malignancy Medical History: Denies Hx Lung Cancer GI Medical History: Reports: Hx Hiatal Hernia, Hx Ulcer - bleeding ulcers, Hx Colonoscopy, Hx Endoscopy. Denies: Hx Crohn's Disease, Hx Gastroesophageal Reflux Disease, Hx Irritable Bowel, Hx Liver Failure, Hx Pancreatitis Musculoskeletal Medical History: Reports Hx Arthritis - GENERALIZED, Denies Hx Fibromyalgia, Denies Hx Multiple Sclerosis, Denies Hx Muscular Dystrophy, Reports Hx Musculoskeletal Deformity, Reports Hx Musculoskeletal Trauma, Denies Hx Systemic Lupus Erythematosus Psychiatric Medical History: Denies: Hx Bipolar Disorder, Hx Dementia, Hx Depression, Hx Post Traumatic Stress Disorder, Hx Schizophrenia Traumatic Medical History: Reports: Hx Fractures - neck-91, Hx Spine Fracture Past Surgical History: Reports: Hx Bowel Surgery - colostomy, Hx Orthopedic Surgery - neck surgery. Denies: Hx Colostomy, Hx Pacemaker - Immunizations Hx Diphtheria, Pertussis, Tetanus Vaccination: - UNSURE Review of Systems - Review of Systems Constitutional: Malaise, Weakness Cardiovascular: denies: Chest pain, Palpitations Respiratory: denies: Cough, Short of breath -: Yes All other systems reviewed and negative Physical Exam - Vital signs Vitals: Resp 19 11/21/19 08:57 Interpretation: Normal - General General appearance: Alert, Other - Appears cachectic and weak In distress: None - HEENT Head: Normocephalic, Atraumatic Eyes: Normal Pupils: PERRL - Respiratory Respiratory status: No respiratory distress Chest status: Nontender Breath sounds: Normal Chest palpation: Normal - Cardiovascular Rhythm: Regular Heart sounds: Normal auscultation Murmur: No - Abdominal Inspection: Normal Distension: Distended Bowel sounds: Hypoactive Tenderness: Tender Organomegaly: No organomegaly - Back Back: Normal, Nontender - Extremities General upper extremity: Normal inspection, Nontender, Normal color, Normal ROM, Normal temperature General lower extremity: Normal inspection, Nontender, Normal color, Normal ROM, Normal temperature, Normal weight bearing. No: Lebron's sign - Neurological Neuro grossly intact: Yes Cognition: Normal Orientation: AAOx4 Anabell Coma Scale Eye Opening: Spontaneous Anabell Coma Scale Verbal: Oriented Rogers Coma Scale Motor: Obeys Commands Rogers Coma Scale Total: 15 Speech: Normal Motor strength normal: LUE, RUE, LLE, RLE Sensory: Normal - Psychological Associated symptoms: Normal affect, Normal mood - Skin Skin Temperature: Warm Skin Moisture: Dry Skin Color: Other - Patient has multiple skin tears Course - Re-evaluation Re-evalutation: 11/21/19 14:05 Patient presents with bleeding from stoma. Dr. Mart has been consulted about this. Patient also has had generalized weakness with failure to thrive and frequent falls. He has had some intermittent confusion as well as trouble speaking and walking. Patient will require further inpatient evaluation and care. - Vital Signs Vital signs: Temp Pulse Resp BP Pulse Ox 98.0 F 22 H 119/81 97 11/21/19 13:00 11/21/19 09:02 11/21/19 09:02 11/21/19 09:00 - Laboratory Result Diagrams: 11/21/19 09:04 11/21/19 09:04 Laboratory results interpreted by me: 11/21/19 11/21/19 09:04 09:04 RBC 2.87 L Hgb 9.7 L Hct 29.0 L MCV 101 H MCH 33.9 H RDW 18.8 H Plt Count 101 L Lymph % (Auto) 11.7 L Seg Neutrophils % 78.6 H Sodium 131.0 L Chloride 94 L Calcium 8.2 L Total Bilirubin 5.5 H Direct Bilirubin 4.2 H AST 242 H Alkaline Phosphatase 1240 H Total Protein 5.9 L Albumin 2.7 L Lipase 18.1 L - Diagnostic Test Radiology reviewed: Image reviewed, Reports reviewed Discharge - Discharge Clinical Impression: Confusion, Weakness, Metastatic colon cancer to liver, Impaired ambulation Anemia Qualifiers: Anemia type: iron deficiency Iron deficiency anemia type: chronic blood loss Qualified Code(s): D50.0 - Iron deficiency anemia secondary to blood loss (chronic) Fall Qualifiers: Encounter type: initial encounter Qualified Code(s): W19.XXXA - Unspecified fall, initial encounter Skin tear of left forearm without complication Qualifiers: Encounter type: initial encounter Qualified Code(s): S51.812A - Laceration without foreign body of left forearm, initial encounter Skin tear of right forearm without complication Qualifiers: Encounter type: initial encounter Qualified Code(s): S51.811A - Laceration without foreign body of right forearm, initial encounter Condition: Serious Disposition: ADMITTED INPATIENT Admitting Provider: Cherise (Hospitalist) Unit Admitted: Medical Floor Referrals: KEY MARTINEZ MD [Primary Care Provider] - Follow up as needed
[2019-11-21] MEDS ORDERED: ONDANSETRON HCL INJ/PF 4 MG/2 ML SDV IV PRN (14:46)
--- NOTE | 2019-11-21 15:22 | PDOC H&P ---
History of Present Illness Admission Date/PCP: 11/21/19 14:31 KEY MARTINEZ MD Patient complains of: falls, weak, blood from colostomy. History of Present Illness: AYE ROCKWELL is a 69 year old male with history of colon cancer with metastasis to liver and bone s/p colostomy and on chemo, chronic alcohol use, hypertension, BPH, lives alone, who presents to the hospital with his siblings after being noted to have bleeding from his ostomy site. Patient sister noted significant bleeding this morning that soaked about 4 paper towels. Is unable to tell if the bleeding was actually from within the stoma just around the surface. I discussed with patient's sister as well as his brothers and himself to obtain history. It was noted that patient lives alone and has been experiencing multiple falls recently. Over the past 3 weeks patient has had significant decline in functional status and has also developed dysarthria according to patient's brothers within the past 1-1/2 weeks to the point where it is difficult for them to understand him. Patient has no known history of brain metastasis according to family. Patient has been receiving chemotherapy and is planning to start on the new type of chemo today with his oncologist Dr. trimble at [facility]. Past Medical History Cardiac Medical History: Reports: Hypertension Denies: Atrial Fibrillation, Congestive Heart Failure, Coronary Artery Disease, Myocardial Infarction, Hyperlipidema, Peripheral Vascular Disease, Pulmonary Embolism, Heart Murmur Pulmonary Medical History: Denies: Asthma, Bronchitis, Chronic Obstructive Pulmonary Disease (COPD), Pneumonia, Respiratory Failure, Sleep Apnea, Tuberculosis Neurological Medical History: Denies: Seizures Endocrine Medical History: Denies: Hyperthyroidism, Hypothyroidism Renal/ Medical History: Denies: End Stage Renal Disease Malignancy Medical History: Reports: Colorectal Cancer - metastasis to liver Denies: Breast Cancer, Cervical Cancer, Lung Cancer, Ovarian Cancer GI Medical History: Reports: Hiatal Hernia Denies: Crohn's Disease, Gastroesophageal Reflux Disease Musculoskeltal Medical History: Reports: Arthritis - GENERALIZED Denies: Fibromyalgia Psychiatric Medical History: Denies: Bipolar Disorder, Dementia, Depression, Post Traumatic Stress Disorder Hematology: Denies: Anemia Past Surgical History Past Surgical History: Reports: Orthopedic Surgery - neck surgery Denies: Colostomy, Pacemaker Social History Smoking Status: Current Every Day Smoker Electronic Cigarette use?: No Frequency of Alcohol Use: Heavy Hx Recreational Drug Use: No Drugs: None Hx Prescription Drug Abuse: No - Advance Directive Resuscitation Status: Full Code Family History Family History: Arthritis, CAD, Hyperlipidemia, Hypertension Parental Family History Reviewed: Yes Children Family History Reviewed: NA Sibling(s) Family History Reviewed.: Yes Medication/Allergy Home Medications: Omeprazole [Prilosec 40 mg Capsule] 20 mg PO AC 08/24/12 Tamsulosin HCl [Flomax] 0.4 mg PO DAILY 10/31/18 Hydromorphone HCl [Dilaudid 2 mg Tablet] 2 mg PO Q6HP PRN #10 tablet 11/10/19 Doxepin HCl [Sinequan 25 mg Capsule] 1 cap PO DAILY 11/14/19 Labetalol HCl 100 mg PO DAILY 11/14/19 Oxycodone HCl/Acetaminophen [Endocet 5-325 Tablet] 1 each PO ASDIR PRN 11/14/19 Potassium Chloride 20 meq PO DAILY 11/14/19 Prochlorperazine Maleate [Compazine 10 mg Tablet] 1 tab PO ASDIR PRN 11/14/19 Allergies/Adverse Reactions: valsartan [From MxBiodevicesvan] Allergy (Unknown, Verified 11/14/19 13:40) hydromorphone Allergy (Verified 11/21/19 08:52) Review of Systems Constitutional: PRESENT: fatigue. ABSENT: fever(s) Nose, Mouth, and Throat: ABSENT: headache(s) Cardiovascular: ABSENT: chest pain Respiratory: ABSENT: dyspnea Gastrointestinal: PRESENT: abdominal pain. ABSENT: diarrhea, nausea, vomiting Genitourinary: PRESENT: nocturia Musculoskeletal: PRESENT: back pain Integumentary: PRESENT: pruritus. ABSENT: diaphoresis Neurological: PRESENT: weakness, other - Slurred speech according to brother Psychiatric: ABSENT: anxiety Endocrine: ABSENT: polydipsia Hematologic/Lymphatic: ABSENT: easy bleeding Physical Exam Vital Signs: Temp Pulse Resp BP Pulse Ox 98.0 F 15 112/85 96 11/21/19 13:00 11/21/19 13:03 11/21/19 14:01 11/21/19 14:01 Intake & Output 11/20/19 11/21/19 11/22/19 06:59 06:59 06:59 Weight 57.4 kg General appearance: PRESENT: no acute distress, cooperative, thin Head exam: PRESENT: normocephalic Eye exam: PRESENT: PERRLA, scleral icterus Mouth exam: PRESENT: dry mucosa Neck exam: ABSENT: JVD Respiratory exam: PRESENT: clear to auscultation sravanthi, unlabored. ABSENT: accessory muscle use, retraction, wheezes Cardiovascular exam: PRESENT: RRR, +S1, +S2. ABSENT: tachycardia GI/Abdominal exam: PRESENT: ascites, distended, mass - Hard mass over the liver, tenderness - Mild, other - Ostomy with raw stoma but no active bleeding. ABSENT: guarding, rebound, rigid, soft - Hard over upper abdomen especially right upper quadrant but soft in lower abdomen Extremities exam: PRESENT: pedal edema Neurological exam: PRESENT: alert, awake, oriented to person, oriented to place, oriented to time, oriented to situation, other - Mildly slurred speech but understandable Psychiatric exam: ABSENT: agitated, anxious Skin exam: PRESENT: jaundice, other - Telangiectasias, spine angiomas over patient's face, palmar erythema in both palms Results Laboratory Results: 11/21/19 09:04 11/21/19 09:04 11/21/19 11/21/19 09:04 09:04 WBC 10.5 RBC 2.87 L Hgb 9.7 L Hct 29.0 L MCV 101 H MCH 33.9 H MCHC 33.6 RDW 18.8 H Plt Count 101 L Seg Neutrophils % 78.6 H Sodium 131.0 L Potassium 4.1 Chloride 94 L Carbon Dioxide 30 Anion Gap 7 BUN 12 Creatinine 0.87 Est GFR ( Amer) > 60 Glucose 84 Calcium 8.2 L Total Bilirubin 5.5 H AST 242 H Alkaline Phosphatase 1240 H Total Protein 5.9 L Albumin 2.7 L Lipase 18.1 L Impressions: Head CT 11/21/19 11:46 IMPRESSION: MILD CHRONIC CHANGES OF ATROPHY AND MICROVASCULAR ISCHEMIA. NO ACUTE PROCESS. EVIDENCE OF ACUTE STROKE: NO. Assessment and Plan - Diagnosis (1) Bleeding from colostomy Is this a current diagnosis for this admission?: Yes Plan: Patient's sister unable to tell if blood was coming from the stoma itself but did say that is soaked four paper towels. Surgery has been consulted by ED provider for evaluation Hemoglobin looks stable at this time as compared to prior recent labs and there is no active bleeding from the stoma currently (2) Dysarthria Is this a current diagnosis for this admission?: Yes Plan: Patient's family reports slurring of speech to the point where it is difficult for them to understand patient for the past week and a half. No known metastasis to the brain according to family but will check MRI of the brain. Head CT unremarkable for any stroke or masses (3) Colon cancer metastasized to liver Is this a current diagnosis for this admission?: Yes Plan: Patient reports colon cancer with metastasis to the liver and bone also noted on recent abdominal CT and has been on chemotherapy for over a year with plans to try a new chemotherapy which is meant to start today. He follows with oncologist Db Whipple at [facility] I have consulted oncology to follow Ultimately, I have discussed patient's overall poor prognosis given his liver failure and metastatic colon cancer and have recommended strong consideration for hospice care in light of patient's very poor prognosis. I have also consulted palliative care. (4) Chronic liver disease and cirrhosis Is this a current diagnosis for this admission?: Yes Plan: Likely as a result of malignant infiltration of the liver combined with patient's chronic alcohol use Patient's brother does state that cirrhosis has been mentioned to them before but are uncertain if it has actually ever been diagnosed. Patient's elevated liver enzymes, thrombocytopenia, hypoalbuminemia and especially physical findings of spider angiomas, telangiectasias, palmar er ythema, ascites suggest that patient most likely has cirrhosis. Will check coags Check ammonia level given family's reports of confusion and metabolic encephalopathy (5) Alcohol use disorder Is this a current diagnosis for this admission?: Yes Plan: Daily drinker patient and brother reports that he drinks 1 beer daily. Denies any episodes of withdrawal. Will monitor CIWA while inpatient. (6) Weakness Is this a current diagnosis for this admission?: Yes Plan: Patient is very deconditioned, cachectic and malnourished. He will benefit from extensive physical therapy and placement at SNF. PT OT and discharge planning consulted - Time Time Spent with patient: 35 or more minutes
[2019-11-21 16:06] LABS: INTERNATIONAL RATION (INR) 1.51; PROTHROMBIN TIME 18.3 SEC (11.4-15.4)
[2019-11-21 16:07] LABS: PARTIAL THROMBOPLASTIN TIME 40.1 SEC (23.5-35.8)
[2019-11-21 17:22] LABS: APPEARANCE,URINE TURBID; BILIRUBIN,URINE NEGATIVE (NEGATIVE); COLOR,URINE YELLOW; GLUCOSE, URINE NEGATIVE (NEGATIVE); KETONES,URINE NEGATIVE (NEGATIVE); LEUKOCYTE ESTERASE,URINE NEGATIVE (NEGATIVE); NITRITE,URINE NEGATIVE (NEGATIVE); PROTEIN,URINE NEGATIVE (NEGATIVE); URINE SPECIFIC GRAVITY 1.019
[2019-11-21] MEDS: OXYCODONE-ACETAMINOPHEN 5-325 MG TABLET PO PRN (18:58)
[2019-11-21] MEDS ORDERED: HYDROMORPHONE HCL 2 MG TABLET PO PRN (20:38)
--- NOTE | 2019-11-21 20:51 | ADVANCED CARE ---
- Diagnosis (3) Colon cancer metastasized to liver Diagnosis Current: Yes (4) Chronic liver disease and cirrhosis Diagnosis Current: Yes (6) Weakness Diagnosis Current: Yes Attendance: Patient and his two brothers Resuscitation Status: Full Code Discussion: Discussed patient's overall condition especially his colon cancer with mets to liver and bone as well as other findings that suggest that he has liver failure and cirrhosis. Described that patient has very poor prognosis given this especially now with worsening functional status. Explained the likelihood that chemo will ultimately not be able to fix his situation or cure his cancer and that ultimately with liver failure more things will go wrong and of course he is not a liver transplant candidate given active malignancy. Discussed palliative and hospice care which is HIGHLY recommended and appropriate for this patient rather than pursuing curative chemo. Family and patient state that they will thi nk about it and are close to pursuing such palliation/hospice but wanted to see if the new chemo regimen patient's oncologist was going to try would help improve his situation. We will continue ongoing talks about palliative care and I have also consulted Dr Perkins to see patient. Time Spent: 25 mins
[2019-11-21] MEDS: FAMOTIDINE 20 MG TABLET PO SCH (21:35)
[2019-11-21] MEDS: LABETALOL HCL 200 MG TABLET PO SCH (21:35)
[2019-11-22] MEDS: LABETALOL HCL 200 MG TABLET PO SCH ×3 (05:10→22:25)
--- NOTE | 2019-11-22 05:13 | PDOC CONSULTATION ---
Consultation Consult Date: 11/22/19 Provider Consulted: SURGICAL SURGICALIST Consult reason:: Bleeding at colostomy site History of Present Illness Admission Date/PCP: 11/21/19 14:31 KEY MARTINEZ MD History of Present Illness: AYE ROCKWELL is a 69 year old male seen in consultation at the request of the hospitalist service. This patient has metastatic colon cancer, and is being treated with palliative chemo. The patient reports that this morning he had bright red blood coming from the edge of his colostomy. He reports that it is slightly painful in that area. The bleeding continued for several minutes, and the patient decided to present to the emergency department for evaluation. By the time the patient made it into a room to be evaluated, the bleeding had stopped on its own. No interventions were used. The patient does not take blood thinners. He denies chest pain, shortness of breath, fevers, chills, nausea, vomiting, dizziness, orthostasis. The patient has never had any issues similar to this in the past. Nothing makes it better or worse. Past Medical History Cardiac Medical History: Reports: Hypertension Denies: Atrial Fibrillation, Congestive Heart Failure, Coronary Artery Disease, Myocardial Infarction, Hyperlipidema, Peripheral Vascular Disease, Pulmonary Embolism, Heart Murmur Pulmonary Medical History: Denies: Asthma, Bronchitis, Chronic Obstructive Pulmonary Disease (COPD), Pneumonia, Respiratory Failure, Sleep Apnea, Tuberculosis Neurological Medical History: Denies: Seizures Endocrine Medical History: Denies: Hyperthyroidism, Hypothyroidism Renal/ Medical History: Denies: End Stage Renal Disease Malignancy Medical History: Reports: Colorectal Cancer - metastasis to liver Denies: Breast Cancer, Cervical Cancer, Lung Cancer, Ovarian Cancer GI Medical History: Reports: Hiatal Hernia Denies: Crohn's Disease, Gastroesophageal Reflux Disease Musculoskeltal Medical History: Reports: Arthritis - GENERALIZED Denies: Fibromyalgia Psychiatric Medical History: Denies: Bipolar Disorder, Dementia, Depression, Post Traumatic Stress Disorder Hematology: Denies: Anemia Past Surgical History Past Surgical History: Reports: Orthopedic Surgery - neck surgery Denies: Colostomy, Pacemaker Social History Smoking Status: Current Every Day Smoker Electronic Cigarette use?: No Frequency of Alcohol Use: Heavy Hx Recreational Drug Use: No Drugs: None Hx Prescription Drug Abuse: No - Advance Directive Resuscitation Status: Full Code Family History Family History: Arthritis, CAD, Hyperlipidemia, Hypertension Parental Family History Reviewed: Yes Children Family History Reviewed: Yes Sibling(s) Family History Reviewed.: Yes Medication/Allergy Home Medications: Omeprazole [Prilosec 40 mg Capsule] 20 mg PO BID 08/24/12 Tamsulosin HCl [Flomax] 0.4 mg PO DAILY 10/31/18 Hydromorphone HCl [Dilaudid 2 mg Tablet] 2 mg PO Q6HP PRN #10 tablet 11/10/19 Doxepin HCl [Sinequan 25 mg Capsule] 1 cap PO BID 11/14/19 Labetalol HCl 100 mg PO TID 11/14/19 Oxycodone HCl/Acetaminophen [Endocet 5-325 Tablet] 1 each PO QIDP PRN 11/14/19 Prochlorperazine Maleate [Compazine 10 mg Tablet] 1 tab PO ASDIR PRN 11/14/19 Furosemide [Lasix 20 mg Tablet] 20 mg PO QAM 11/21/19 Allergies/Adverse Reactions: valsartan [From Zazzyvan] Allergy (Unknown, Verified 11/14/19 13:40) hydromorphone Allergy (Verified 11/21/19 08:52) Review of Systems Constitutional: PRESENT: fatigue. ABSENT: fever(s), headache(s), night sweats Eyes: ABSENT: visual disturbances Ears: ABSENT: hearing changes Nose, Mouth, and Throat: ABSENT: mouth pain, sore throat Cardiovascular: ABSENT: chest pain Respiratory: ABSENT: cough Gastrointestinal: PRESENT: other - Bleeding at colostomy site that spontaneously resolved. ABSENT: abdominal pain, bloating, heartburn, nausea, vomiting Genitourinary: ABSENT: difficulty urinating Musculoskeletal: ABSENT: back pain Integumentary: ABSENT: diaphoresis Neurological: ABSENT: abnormal movements, abnormal speech, confusion, convulsion s Psychiatric: ABSENT: anxiety, depression Endocrine: ABSENT: cold intolerance, heat intolerance Hematologic/Lymphatic: ABSENT: easy bleeding, easy bruising Physical Exam Vital Signs: Temp Pulse Resp BP Pulse Ox 98.0 F 22 H 109/89 H 93 11/21/19 13:00 11/21/19 16:00 11/21/19 15:01 11/21/19 16:00 Intake & Output 11/20/19 11/21/19 11/22/19 06:59 06:59 06:59 Weight 57.4 kg General appearance: PRESENT: no acute distress, cooperative Head exam: PRESENT: atraumatic, normocephalic Eye exam: PRESENT: EOMI, PERRLA Mouth exam: PRESENT: moist, neck supple Neck exam: ABSENT: meningismus, tenderness, thyromegaly, tracheal deviation Respiratory exam: PRESENT: unlabored. ABSENT: chest wall tenderness, tachypnea, wheezes Cardiovascular exam: ABSENT: tachycardia GI/Abdominal exam: PRESENT: soft, other - Colostomy is pink and productive. No blood is noted on examination.. ABSENT: distended, firm, guarding, tenderness Rectal exam: PRESENT: deferred Extremities exam: ABSENT: clubbing Musculoskeletal exam: ABSENT: deformity Neurological exam: PRESENT: alert, awake, oriented to person, oriented to place, oriented to time, oriented to situation Psychiatric exam: ABSENT: agitated, anxious, depressed Focused psych exam: ABSENT: delusional Skin exam: ABSENT: cyanosis, erythema, jaundice Results Laboratory Results: 11/21/19 09:04 11/21/19 09:04 11/21/19 11/21/19 11/21/19 09:04 09:04 15:20 WBC 10.5 RBC 2.87 L Hgb 9.7 L Hct 29.0 L MCV 101 H MCH 33.9 H MCHC 33.6 RDW 18.8 H Plt Count 101 L Seg Neutrophils % 78.6 H Sodium 131.0 L Potassium 4.1 Chloride 94 L Carbon Dioxide 30 Anion Gap 7 BUN 12 Creatinine 0.87 Est GFR ( Amer) > 60 Glucose 84 Calcium 8.2 L Total Bilirubin 5.5 H AST 242 H Alkaline Phosphatase 1240 H Ammonia Total Protein 5.9 L Albumin 2.7 L Lipase 18.1 L Urine Color YELLOW Urine Appearance TURBID Urine pH 5.0 Ur Specific [place] 1.019 Urine Protein NEGATIVE Urine Glucose (UA) NEGATIVE Urine Ketones NEGATIVE Urine Blood NEGATIVE Urine Nitrite NEGATIVE Ur Leukocyte Esterase NEGATIVE Urine WBC (Auto) 3 11/21/19 16:18 WBC RBC Hgb Hct MCV MCH MCHC RDW Plt Count Seg Neutrophils % Sodium Potassium Chloride Carbon Dioxide Anion Gap BUN Creatinine Est GFR ( Amer) Glucose Calcium Total Bilirubin AST Alkaline Phosphatase Ammonia 29.9 Total Protein Albumin Lipase Urine Color Urine Appearance Urine pH Ur Specific [place] Urine Protein Urine Glucose (UA) Urine Ketones Urine Blood Urine Nitrite Ur Leukocyte Esterase Urine WBC (Auto) Impressions: Head CT 11/21/19 11:46 IMPRESSION: MILD CHRONIC CHANGES OF ATROPHY AND MICROVASCULAR ISCHEMIA. NO ACUTE PROCESS. EVIDENCE OF ACUTE STROKE: NO. Assessment & Plan - Diagnosis (1) Bleeding from colostomy Is this a current diagnosis for this admission?: Yes - Plan Summary Plan Summary: This is a 69-year-old male with metastatic colon cancer. The patient experienced some bleeding near the edge of his colostomy yesterday. The bl eeding has spontaneously subsided. This is a common occurrence with colostomies. If it occurs again, local treatment with manual pressure, or chemical cauterization should be curative. No surgical intervention at this time is necessary. Surgery will sign off. Please renotify with any questions or concerns.
[2019-11-22 07:04] LABS: ABSOLUTE BASOPHILS # (AUTO) 0.1 10^3/uL (0.0-0.2); ABSOLUTE EOSINOPHILS # (AUTO) 0.1 10^3/uL (0.0-0.6); ABSOLUTE LYMPHOCYTES (AUTO) 1.7 10^3/uL (0.5-4.7); ABSOLUTE MONOCYTES (AUTO) 1.1 10^3/uL (0.1-1.4); ABSOLUTE NEUT (AUTO) 8.4 10^3/uL (1.7-8.2); ABSOLUTE RETICS # 0.088 10^6/uL (0.028-0.122); BASOPHILS % (AUTO) 0.5 % (0-2); EOSINOPHILS % (AUTO) 0.8 % (0-6); HEMATOCRIT 26.4 % (37.9-51.0); HEMOGLOBIN 8.7 g/dL (13.5-17.0); LYMPHOCYTES % (AUTO) 14.7 % (13-45); MEAN CORPUSCULAR HEMOGLOBIN 33.2 pg (27.0-33.4); MEAN CORPUSCULAR HGB CONC 33.1 g/dL (32.0-36.0); MEAN CORPUSCULAR VOLUME 100 fl (80-97); MONOCYTES % (AUTO) 9.8 % (3-13); RED BLOOD COUNT 2.64 10^6/uL (4.35-5.55); RED CELL DISTRIBUTION WIDTH 18.8 % (11.5-14.0); RETICULOCYTE COUNT (AUTO) 3.35 % (0.66-2.85); SEGMENTED NEUTROPHILS % (AUTO) 74.2 % (42-78); TOTAL CELLS COUNTED % (AUTO) 100 %; WHITE BLOOD COUNT 11.3 10^3/uL (4.0-10.5)
[2019-11-22 07:23] LABS: ALBUMIN 2.5 g/dL (3.5-5.0); ALKALINE PHOSPHATASE 1013 U/L (38-126); ANION GAP 8 (5-19); ASPARTATE AMINO TRANSFERASE 235 U/L (17-59); BILIRUBIN,TOTAL 5.2 mg/dL (0.2-1.3); BLOOD UREA NITROGEN 15 mg/dL (7-20); CALCIUM 8.1 mg/dL (8.4-10.2); CARBON DIOXIDE 29 mmol/L (22-30); CHLORIDE 94 mmol/L (98-107); IRON(TIBC) 37.3 ug/dL (49-181); PHOSPHORUS 4.6 mg/dL (2.5-4.5); POTASSIUM 4.6 mmol/L (3.6-5.0); TOTAL PROTEIN 5.5 g/dL (6.3-8.2)
[2019-11-22 07:25] LABS: PLATELET COUNT 85 10^3/uL (150-450)
[2019-11-22 08:17] LABS: GLUCOSE 69 mg/dL (75-110)
--- NOTE | 2019-11-22 08:47 | CDI QUERY ---
<CRISS BAILEY - Last Filed: 11/22/19 08:47> CDI Query CDI Review: Dear TR, To better reflect your patients severity of illness, morbidity, and resource utilization Please LINK any condition to present on admission, if applicable. The terms probable, suspected, likely, possible or still to be ruled out may be used. If you agree, please add to the Progress Notes and Discharge Summary Query Clinical indicators MALNUTRITION- protein-calorie moderate?, Severe? CACHEXIA? PROGRESSION OF CANCER? Patient is very deconditioned, cachectic and malnourished. He will benefit from extensive physical therapy and placement at SNF. PT OT and discharge planning consulted STOMAL BLEEDING, METASTATIC LIVER CARCINOMA Thank you, CRISS Clinical Documentation [facility] KATE Mandel Office [phone] [facility] [phone] <FRAN ARMANDO - Last Filed: 11/30/19 19:38> CDI Query Agree with Query: Yes - Moderate to severe protein caloric malnutrition with cachexia
[2019-11-22] MEDS: DOXEPIN HCL 25 MG CAPSULE PO SCH ×2 (09:20→17:01)
[2019-11-22] MEDS: FUROSEMIDE 20 MG TABLET PO SCH (09:20)
[2019-11-22] MEDS: TAMSULOSIN HCL 0.4 MG CAP.SR.24H PO SCH (09:20)
[2019-11-22] MEDS: FAMOTIDINE 20 MG TABLET PO SCH ×2 (09:20→22:25)
[2019-11-22 09:31] LABS: FOLATE > 20.00 ng/mL (>2.76)
--- NOTE | 2019-11-22 09:34 | PDOC CONSULTATION ---
Consultation Consult Date: 11/22/19 Provider Consulted: DOMINICK DELAROSA Consult reason:: Hematology/Oncology consultation was requested for patient on active chemo for colon cancer. History of Present Illness Admission Date/PCP: 11/21/19 14:31 KEY MARTINEZ MD History of Present Illness: AYE ROCKWELL is a 69 year old male who is followed by Dr. Whipple at [facility]. I spoke with Dr. Whipple this morning. Patient states that he was diagnosed with colon cancer about 13 months ago. He is difficult to understand, but states that he was due for a chemo treatment yes terday. He receives these every 2 weeks. He also states that the chemo has been too strong. He lives alone and has been falling at home. He presented to the ED with blood coming from his ostomy. However, by the time he was seen, the bleeding had stopped. In the ED, he was found to have evidence of end stage Liver disease with ascites and elevated bili. He had several skin tears and was not felt to be safe at home alone. According to Dr. Whipple, patient has failed FOLFOX and FOLFIRI and was planning to start Erbitux yesterday. Past Medical History Cardiac Medical History: Reports: Hypertension Denies: Atrial Fibrillation, Congestive Heart Failure, Coronary Artery Disease, Myocardial Infarction, Hyperlipidema, Peripheral Vascular Disease, Pulmonary Embolism, Heart Murmur Pulmonary Medical History: Denies: Asthma, Bronchitis, Chronic Obstructive Pulmonary Disease (COPD), Pneumonia, Respiratory Failure, Sleep Apnea, Tuberculosis Neurological Medical History: Denies: Seizures Endocrine Medical History: Denies: Hyperthyroidism, Hypothyroidism Renal/ Medical History: Denies: End Stage Renal Disease Malignancy Medical History: Reports: Colorectal Cancer - metastasis to liver Denies: Breast Cancer, Cervical Cancer, Lung Cancer, Ovarian Cancer GI Medical History: Reports: Hiatal Hernia Denies: Crohn's Disease, Gastroesophageal Reflux Disease Musculoskeltal Medical History: Reports: Arthritis - GENERALIZED Denies: Fibromyalgia Psychiatric Medical History: Denies: Bipolar Disorder, Dementia, Depression, Post Traumatic Stress Disorder Hematology: Denies: Anemia Past Surgical History Past Surgical History: Reports: Orthopedic Surgery - neck surgery Denies: Colostomy, Pacemaker Social History Smoking Status: Current Every Day Smoker Electronic Cigarette use?: No Frequency of Alcohol Use: Heavy Hx Recreational Drug Use: No Drugs: None Hx Prescription Drug Abuse: No - Advance Directive Resuscitation Status: Full Code Family History Family History: Arthritis, CAD, Hyperlipidemia, Hypertension Parental Family History Reviewed: Yes Children Family History Reviewed: No Sibling(s) Family History Reviewed.: Yes Medication/Allergy Home Medications: Omeprazole [Prilosec 40 mg Capsule] 20 mg PO BID 08/24/12 Tamsulosin HCl [Flomax] 0.4 mg PO DAILY 10/31/18 Hydromorphone HCl [Dilaudid 2 mg Tablet] 2 mg PO Q6HP PRN #10 tablet 11/10/19 Doxepin HCl [Sinequan 25 mg Capsule] 1 cap PO BID 11/14/19 Labetalol HCl 100 mg PO TID 11/14/19 Oxycodone HCl/Acetaminophen [Endocet 5-325 Tablet] 1 each PO QIDP PRN 11/14/19 Prochlorperazine Maleate [Compazine 10 mg Tablet] 1 tab PO ASDIR PRN 11/14/19 Furosemide [Lasix 20 mg Tablet] 20 mg PO QAM 11/21/19 Allergies/Adverse Reactions: valsartan [From Syncurityvan] Allergy (Unknown, Verified 11/14/19 13:40) hydromorphone Allergy (Verified 11/21/19 08:52) Review of Systems Constitutional: ABSENT: fever(s), headache(s) Eyes: ABSENT: visual disturbances Ears: ABSENT: hearing changes Nose, Mouth, and Throat: ABSENT: sore throat Cardiovascular: ABSENT: chest pain Respiratory: ABSENT: dyspnea Gastrointestinal: PRESENT: nausea Genitourinary: ABSENT: dysuria Musculoskeletal: PRESENT: back pain Integumentary: PRESENT: as per HPI Neurological: PRESENT: frequent falls Hematologic/Lymphatic: PRESENT: easy bleeding Physical Exam Vital Signs: Temp Pulse Resp BP Pulse Ox 97.8 F 84 19 106/69 96 11/21/19 23:53 11/21/19 23:53 11/21/19 23:53 11/21/19 23:53 11/21/19 23:53 Intake & Output 11/21/19 11/22/19 11/23/19 06:59 06:59 06:59 Intake Total 390 Balance 390 Weight 121.3 kg General appearance: PRESENT: no acute distress, thin Exam: 69 year old male. Temporal wasting and ascites. Head exam: PRESENT: atraumatic Eye exam: PRESENT: EOMI Mouth exam: PRESENT: tongue midline Neck exam: ABSENT: lymphadenopathy, tenderness Respiratory exam: PRESENT: clear to auscultation sravanthi, unlabored Cardiovascular exam: PRESENT: RRR. ABSENT: systolic murmur GI/Abdominal exam: PRESENT: distended, firm, other - Vericosities over abdomen. Extremities exam: ABSENT: pedal edema Musculoskeletal exam: PRESENT: normal inspection Neurological exam: PRESENT: alert, awake, other - speech difficult to understand. Psychiatric exam: PRESENT: appropriate affect Skin exam: PRESENT: normal color Results Laboratory Results: 11/22/19 06:43 11/21/19 11/21/19 11/21/19 09:04 09:04 15:20 WBC 10.5 RBC 2.87 L Hgb 9.7 L Hct 29.0 L MCV 101 H MCH 33.9 H MCHC 33.6 RDW 18.8 H Plt Count 101 L Seg Neutrophils % 78.6 H Retic Count (auto) Sodium 131.0 L Potassium 4.1 Chloride 94 L Carbon Dioxide 30 Anion Gap 7 BUN 12 Creatinine 0.87 Est GFR ( Amer) > 60 Glucose 84 Calcium 8.2 L Total Bilirubin 5.5 H AST 242 H Alkaline Phosphatase 1240 H Ammonia Total Protein 5.9 L Albumin 2.7 L Lipase 18.1 L Urine Color YELLOW Urine Appearance TURBID Urine pH 5.0 Ur Specific [place] 1.019 Urine Protein NEGATIVE Urine Glucose (UA) NEGATIVE Urine Ketones NEGATIVE Urine Blood NEGATIVE Urine Nitrite NEGATIVE Ur Leukocyte Esterase NEGATIVE Urine WBC (Auto) 3 11/21/19 11/22/19 16:18 06:43 WBC 11.3 H RBC 2.64 L Hgb 8.7 L Hct 26.4 L MCV 100 H MCH 33.2 MCHC 33.1 RDW 18.8 H Plt Count 85 L Seg Neutrophils % 74.2 Retic Count (auto) 3.35 H Sodium Potassium Chloride Carbon Dioxide Anion Gap BUN Creatinine Est GFR ( Amer) Glucose Calcium Total Bilirubin AST Alkaline Phosphatase Ammonia 29.9 Total Protein Albumin Lipase Urine Color Urine Appearance Urine pH Ur Specific [place] Urine Protein Urine Glucose (UA) Urine Ketones Urine Blood Urine Nitrite Ur Leukocyte Esterase Urine WBC (Auto) Impressions: Head CT 11/21/19 11:46 IMPRESSION: MILD CHRONIC CHANGES OF ATROPHY AND MICROVASCULAR ISCHEMIA. NO ACUTE PROCESS. EVIDENCE OF ACUTE STROKE: NO. Status: Image reviewed by me Assessment & Plan - Diagnosis (1) Bleeding from colostomy Is this a current diagnosis for this admission?: Yes Plan: Now resolved. (2) Chronic liver disease and cirrhosis Is this a current diagnosis for this admission?: Yes (3) Colon cancer metastasized to liver Is this a current diagnosis for this admission?: Yes Plan: I spoke with primary oncologist. Plan is to start Erbitux as soon as patient has been discharged. (4) Fall Qualifiers: Encounter type: initial encounter Qualified Code(s): W19.XXXA - Unspecified fall, initial encounter Is this a current diagnosis for this admission?: Yes Plan: Agree with plans for MRI brain. If positive, then consider XRT or Hospice, as I would not recommend Erbitux. Family is very concerned about patient's safety at home alone. They have requested transfer to [facility]/SNF. (5) Pain Is this a current diagnosis for this admission?: Yes Plan: Currently controlled with current regimen. - Plan Summary Plan Summary: I have explained to the family that although patient wishes to continue Erbitux, if he is admitted to SNF, this may not be possible. If he goes to [facility], then Hospice would be most appropriate. Will await MRI of the brain before making further decisions. Family to discuss at length. I will continue to follow. This was also discussed with Dr. Luong.
[2019-11-22] MEDS ORDERED: ENOXAPARIN SODIUM INJ 40 MG/0.4 ML DISP.SYRIN SUBCUT SCH (10:00)
--- NOTE | 2019-11-22 12:17 | RADIOLOGY REPORT (SQ) ---
EXAM DESCRIPTION: MRI HEAD COMBO COMPLETED DATE/TIME: 11/22/2019 9:05 am REASON FOR STUDY: new onset aphasia. hx of metastatic colon cancer. COMPARISON: CT of the head without contrast from 11/21/2019 TECHNIQUE: Multiplanar imaging includes noncontrasted T1, T2, FLAIR, diffusion with ADC map and post gadolinium contrast T1 sequences. Images stored on PACS. CONTRAST TYPE AND DOSE: 10 mL Dotarem. RENAL FUNCTION: Not indicated. ACR Type II contrast agent associated with few, if any, unconfounded cases of NSF LIMITATIONS: None. FINDINGS: The midline structures, including the sella turcica, corpus callosum and craniocervical ju nction, are normal in appearance. There is no restricted diffusion on the DWI. The high FLAIR signal within the supratentorial periventricular white matter is nonspecific and could represent the sequela of chronic microvascular ischemia. There is no acute intracranial hemorrhage, vascular territorial infarct, extra-axial fluid collection , mass, mass effect or midline shift. There is no effacement of the cerebral sulci or basal subarach noid cisterns. The caliber the ventricles is concordant with the degree of sulcation. The intracranial vascular flow voids are preserved. There is no pathologic intracranial enhancement. The dural venous sinuses are patent. There is no abnormality of the orbits and paranasal sinuses. IMPRESSION: No acute intracranial abnormality. EVIDENCE OF ACUTE STROKE: NO. TECHNICAL DOCUMENTATION: JOB ID: [id number] 2010 [employer]- All Rights Reserved Reading location - IP/workstation name: [email or web address]
--- NOTE | 2019-11-22 19:50 | PDOC PROGRESS REPORT ---
Subjective Progress Note for:: 11/22/19 Subjective:: Patient has no significant complaints today. Patient denies any recurrence of the bleeding from his ostomy site. Reason For Visit: LIVER FAILURE, METASTATIC COLON CANCER,WEAKNESS Physical Exam Vital Signs: Temp Pulse Resp BP Pulse Ox 98.1 F 88 17 102/68 99 11/22/19 15:30 11/22/19 15:30 11/22/19 15:30 11/22/19 15:30 11/22/19 15:30 Intake & Output 11/21/19 11/22/19 11/23/19 06:59 06:59 06:59 Intake Total 390 720 Output Total 900 Balance 390 -180 Weight 121.3 kg 57.4 kg General appearance: PRESENT: no acute distress, cooperative Neck exam: ABSENT: JVD Respiratory exam: PRESENT: clear to auscultation sravanthi, symmetrical, unlabored. ABSENT: tachypnea, wheezes Cardiovascular exam: PRESENT: RRR, +S1, +S2. ABSENT: tachycardia GI/Abdominal exam: PRESENT: normal bowel sounds. ABSENT: guarding, rebound, rigid, soft, tenderness Neurological exam: PRESENT: alert, awake, oriented to person, oriented to place, oriented to time Results Laboratory Results: 11/22/19 06:43 11/22/19 06:43 11/22/19 11/22/19 06:43 06:43 WBC 11.3 H RBC 2.64 L Hgb 8.7 L Hct 26.4 L MCV 100 H MCH 33.2 MCHC 33.1 RDW 18.8 H Plt Count 85 L Seg Neutrophils % 74.2 Retic Count (auto) 3.35 H Sodium 130.9 L Potassium 4.6 Chloride 94 L Carbon Dioxide 29 Anion Gap 8 BUN 15 Creatinine 0.88 Est GFR ( Amer) > 60 Glucose 69 L Calcium 8.1 L Phosphorus 4.6 H Magnesium 2.0 Iron 37.3 L TIBC 161 L % Saturation 23 Ferritin 3710.00 H Total Bilirubin 5.2 H AST 235 H Alkaline Phosphatase 1013 H Total Protein 5.5 L Albumin 2.5 L Vitamin B12 815.0 Folate > 20.00 Impressions: Head CT 11/21/19 11:46 IMPRESSION: MILD CHRONIC CHANGES OF ATROPHY AND MICROVASCULAR ISCHEMIA. NO ACUTE PROCESS. EVIDENCE OF ACUTE STROKE: NO. Head MRI 11/22/19 00:00 IMPRESSION: No acute intracranial abnormality. EVIDENCE OF ACUTE STROKE: NO. Assessment and Plan - Diagnosis (1) Bleeding from colostomy Is this a current diagnosis for this admission?: Yes Plan: Currently symptoms are resolved. Surgery notes that this is a frequent occurrence and may just have occurred from irritation of the ostomy site. Recommending manual pressure application if recurrence. Hemoglobin is steady. (2) Dysarthria Is this a current diagnosis for this admission?: Yes Plan: Patient's family reports slurring of speech to the point where it is difficult for them to understand patient for the past week and a half. MRI of the brain is negative for any acute abnormalities. (3) Colon cancer metastasized to liver Is this a current diagnosis for this admission?: Yes Plan: Patient reports colon cancer with metastasis to the liver and bone also noted on recent abdominal CT and has been on chemotherapy for over a year with plans to try a new chemotherapy which is meant to start today. He follows with oncologist Db Whipple at [facility] following (4) Chronic liver disease and cirrhosis Is this a current diagnosis for this admission?: Yes Plan: Likely as a result of malignant infiltration of the liver combined with patient's chronic alcohol use Patient's brother does state that cirrhosis has been mentioned to them before but are uncertain if it has actually ever been diagnosed. Patient's elevated liver enzymes, thrombocytopenia, hypoalbuminemia and especially physical findings of spider angiomas, telangiectasias, palmar erythema, ascites suggest that patient most likely has cirrhosis. (5) Alcohol use disorder Is this a current diagnosis for this admission?: Yes (6) Weakness Is this a current diagnosis for this admission?: Yes - Time Time Spent with patient: Less than 15 minutes
[2019-11-23] MEDS: LABETALOL HCL 200 MG TABLET PO SCH ×3 (05:34→22:06)
[2019-11-23] MEDS: FUROSEMIDE 20 MG TABLET PO SCH (07:46)
--- NOTE | 2019-11-23 08:20 | PDOC PROGRESS REPORT ---
Subjective Progress Note for:: 11/23/19 Subjective:: Patient very confused today. States he wants to go home and he can take care of himself. However, upon further discussion, he tells me that he wants to go to [facility]. We discussed the fact that if he is at [facility], no further treatment for his cancer will be possible. He understands and agree with this plan. He denies any pain or dyspnea. Reason For Visit: LIVER FAILURE, METASTATIC COLON CANCER,WEAKNESS Physical Exam Vital Signs: Temp Pulse Resp BP Pulse Ox 97.5 F 84 17 110/71 98 11/23/19 04:00 11/23/19 04:00 11/23/19 04:00 11/23/19 04:00 11/23/19 04:00 Intake & Output 11/22/19 11/23/19 11/24/19 06:59 06:59 06:59 Intake Total 390 1070 Output Total 1250 Balance 390 -180 Weight 121.3 kg 121.3 kg General appearance: PRESENT: no acute distress, thin Head exam: PRESENT: normocephalic GI/Abdominal exam: PRESENT: distended, firm Neurological exam: PRESENT: awake, oriented to person. ABSENT: oriented to place, oriented to time Psychiatric exam: PRESENT: agitated Focused psych exam: PRESENT: restlessness Skin exam: PRESENT: pallor Results Laboratory Results: 11/22/19 06:43 11/22/19 06:43 11/22/19 06:43 Sodium 130.9 L Potassium 4.6 Chloride 94 L Carbon Dioxide 29 Anion Gap 8 BUN 15 Creatinine 0.88 Est GFR ( Amer) > 60 Glucose 69 L Calcium 8.1 L Phosphorus 4.6 H Magnesium 2.0 Iron 37.3 L TIBC 161 L % Saturation 23 Ferritin 3710.00 H Total Bilirubin 5.2 H AST 235 H Alkaline Phosphatase 1013 H Total Protein 5.5 L Albumin 2.5 L Vitamin B12 815.0 Folate > 20.00 Impressions: Head CT 11/21/19 11:46 IMPRESSION: MILD CHRONIC CHANGES OF ATROPHY AND MICROVASCULAR ISCHEMIA. NO ACUTE PROCESS. EVIDENCE OF ACUTE STROKE: NO. Head MRI 11/22/19 00:00 IMPRESSION: No acute intracranial abnormality. EVIDENCE OF ACUTE STROKE: NO. Assessment & Plan - Diagnosis (1) Bleeding from colostomy Is this a current diagnosis for this admission?: Yes (2) Chronic liver disease and cirrhosis Is this a current diagnosis for this admission?: Yes (3) Colon cancer metastasized to liver Is this a current diagnosis for this admission?: Yes (4) Fall Qualifiers: Encounter type: initial encounter Qualified Code(s): W19.XXXA - Unspecified fall, initial encounter Is this a current diagnosis for this admission?: Yes (5) Pain Is this a current diagnosis for this admission?: Yes - Time Time Spent with patient: 15-24 minutes - Plan Summary Plan Summary: Plan is to transfer to [facility]. Once there, Hospice should be consulted if possible. No further aggressive treatment for his cancer is possible at this point. He has rapidly deteriorated as evidenced by confusion, frequent falls, and decreased appetite. I will sign off.
[2019-11-23] MEDS: DOXEPIN HCL 25 MG CAPSULE PO SCH ×2 (09:56→17:26)
[2019-11-23] MEDS: FAMOTIDINE 20 MG TABLET PO SCH ×2 (09:56→22:06)
[2019-11-23] MEDS: TAMSULOSIN HCL 0.4 MG CAP.SR.24H PO SCH (09:56)
--- NOTE | 2019-11-23 17:56 | PDOC PROGRESS REPORT ---
Subjective Progress Note for:: 11/23/19 Subjective:: Patient has no complaints today. Willing to put chemo on hold in pursuit of rehab at SNF. Will coordinate with his oncologist in future to see if need to rrestart. Reason For Visit: LIVER FAILURE, METASTATIC COLON CANCER,WEAKNESS Physical Exam Vital Signs: Temp Pulse Resp BP Pulse Ox 97.3 F 75 16 104/65 99 11/23/19 16:00 11/23/19 16:00 11/23/19 16:00 11/23/19 16:00 11/23/19 16:00 Intake & Output 11/22/19 11/23/19 11/24/19 06:59 06:59 06:59 Intake Total 390 1070 Output Total 1250 Balance 390 -180 Weight 121.3 kg 121.3 kg General appearance: PRESENT: no acute distress, cooperative Neck exam: ABSENT: JVD Respiratory exam: PRESENT: clear to auscultation sravanthi GI/Abdominal exam: PRESENT: ascites, distended Neurological exam: PRESENT: alert, awake Results Laboratory Results: 11/22/19 06:43 11/22/19 06:43 Impressions: Head CT 11/21/19 11:46 IMPRESSION: MILD CHRONIC CHANGES OF ATROPHY AND MICROVASCULAR ISCHEMIA. NO ACUTE PROCESS. EVIDENCE OF ACUTE STROKE: NO. Head MRI 11/22/19 00:00 IMPRESSION: No acute intracranial abnormality. EVIDENCE OF ACUTE STROKE: NO. Assessment and Plan - Diagnosis (1) Bleeding from colostomy Is this a current diagnosis for this admission?: Yes (2) Dysarthria Is this a current diagnosis for this admission?: Yes (3) Colon cancer metastasized to liver Is this a current diagnosis for this admission?: Yes (4) Chronic liver disease and cirrhosis Is this a current diagnosis for this admission?: Yes (5) Alcohol use disorder Is this a current diagnosis for this admission?: Yes (6) Weakness Is this a current diagnosis for this admission?: Yes - Plan Summary Summary: Bleeding from ostomy remains resolved. Patient walked with PT and only ambulated 50ft with assistive device. Will work on getting patient to SNF. Discharge planning aware. Hopefully patient can decide on pursuing palliative/hospice after he meets with his primary Oncologist Dr. Lee which he wants to do before deciding on palliation. - Time Time Spent with patient: Less than 15 minutes
[2019-11-24] MEDS: LABETALOL HCL 200 MG TABLET PO SCH ×3 (05:18→22:25)
[2019-11-24] MEDS: OXYCODONE-ACETAMINOPHEN 5-325 MG TABLET PO PRN (05:18)
[2019-11-24] MEDS: FUROSEMIDE 20 MG TABLET PO SCH (08:52)
[2019-11-24] MEDS: FAMOTIDINE 20 MG TABLET PO SCH ×2 (09:03→22:27)
[2019-11-24] MEDS: TAMSULOSIN HCL 0.4 MG CAP.SR.24H PO SCH (09:03)
[2019-11-24] MEDS: DOXEPIN HCL 25 MG CAPSULE PO SCH ×3 (09:04→17:39)
[2019-11-24 10:27] LABS: HEMATOCRIT 27.3 % (37.9-51.0); HEMOGLOBIN 9.3 g/dL (13.5-17.0); MEAN CORPUSCULAR HGB CONC 34.1 g/dL (32.0-36.0); MEAN CORPUSCULAR VOLUME 100 fl (80-97); RED BLOOD COUNT 2.73 10^6/uL (4.35-5.55); RED CELL DISTRIBUTION WIDTH 18.7 % (11.5-14.0); WHITE BLOOD COUNT 12.6 10^3/uL (4.0-10.5)
[2019-11-24 10:39] LABS: ALBUMIN 2.8 g/dL (3.5-5.0); ANION GAP 12 (5-19); ASPARTATE AMINO TRANSFERASE 235 U/L (17-59); BILIRUBIN,DIRECT 5.7 mg/dL (0.0-0.4); BILIRUBIN,TOTAL 6.9 mg/dL (0.2-1.3); BLOOD UREA NITROGEN 25 mg/dL (7-20); CALCIUM 8.9 mg/dL (8.4-10.2); CARBON DIOXIDE 28 mmol/L (22-30); CHLORIDE 95 mmol/L (98-107); GLUCOSE 82 mg/dL (75-110); POTASSIUM 4.4 mmol/L (3.6-5.0); TOTAL PROTEIN 6.3 g/dL (6.3-8.2)
[2019-11-24 10:46] LABS: ALKALINE PHOSPHATASE 1475 U/L (38-126)
[2019-11-24 11:13] LABS: PLATELET COUNT 74 10^3/uL (150-450)
--- NOTE | 2019-11-24 15:03 | PDOC PROGRESS REPORT ---
Subjective Progress Note for:: 11/24/19 Subjective:: Patient once again appears encephalopathic today mumbling to himself and often moaning. His speech remains slurred and does mostly mumble. Reason For Visit: LIVER FAILURE, METASTATIC COLON CANCER,WEAKNESS Physical Exam Vital Signs: Temp Pulse Resp BP Pulse Ox 97.6 F 97 18 120/52 L 92 11/24/19 12:00 11/24/19 12:00 11/24/19 12:00 11/24/19 12:00 11/24/19 12:00 Intake & Output 11/23/19 11/24/19 11/25/19 06:59 06:59 06:59 Intake Total 1070 Output Total 1250 Balance -180 Weight 121.3 kg 52.5 kg General appearance: PRESENT: thin Neck exam: ABSENT: JVD Respiratory exam: PRESENT: clear to auscultation sravanthi, unlabored. ABSENT: tachypnea, wheezes Cardiovascular exam: PRESENT: RRR, +S1, +S2. ABSENT: tachycardia GI/Abdominal exam: PRESENT: ascites, distended. ABSENT: firm, guarding, rebound, rigid, soft, tenderness Neurological exam: PRESENT: alert, awake, oriented to person, oriented to place, oriented to situation, other - Confused. ABSENT: oriented to time Results Laboratory Results: 11/24/19 10:14 11/24/19 10:14 11/24/19 11/24/19 11/24/19 10:14 10:14 10:14 WBC 12.6 H RBC 2.73 L Hgb 9.3 L Hct 27.3 L MCV 100 H MCH 34.0 H MCHC 34.1 RDW 18.7 H Plt Count 74 L Sodium 135.2 L Potassium 4.4 Chloride 95 L Carbon Dioxide 28 Anion Gap 12 BUN 25 H Creatinine 0.97 Est GFR ( Amer) > 60 Glucose 82 Calcium 8.9 Total Bilirubin 6.9 H AST 235 H Alkaline Phosphatase 1475 H Ammonia < 8.7 L Total Protein 6.3 Albumin 2.8 L Impressions: Head CT 11/21/19 11:46 IMPRESSION: MILD CHRONIC CHANGES OF ATROPHY AND MICROVASCULAR ISCHEMIA. NO ACUTE PROCESS. EVIDENCE OF ACUTE STROKE: NO. Head MRI 11/22/19 00:00 IMPRESSION: No acute intracranial abnormality. EVIDENCE OF ACUTE STROKE: NO. Assessment and Plan - Diagnosis (1) Metabolic encephalopathy Is this a current diagnosis for this admission?: Yes Plan: Appears to be having an episode of acute delirium/encephalopathy. Alcohol withdrawal less likely given no evidence of autonomic hyperactivity based on vital signs. MRI of the brain was 2 days ago when evaluated for similar. Ammonia is low, normal kidney function. (2) Bleeding from colostomy Is this a current diagnosis for this admission?: Yes Plan: Currently symptoms are resolved. Surgery notes that this is a frequent occurr ence and may just have occurred from irritation of the ostomy site. Recommending manual pressure application if recurrence. Hemoglobin is steady. (3) Dysarthria Is this a current diagnosis for this admission?: Yes Plan: MRI of the brain is negative for any acute abnormalities. (4) Colon cancer metastasized to liver Is this a current diagnosis for this admission?: Yes Plan: Patient was agreeable to hold off on further chemotherapy treatment until he comes out of rehab at SNF. I have recommended that patient pursue palliative and hospice care but he would like to discuss this with his primary oncologist Dr. Jacobs before deciding. (5) Chronic liver disease and cirrhosis Is this a current diagnosis for this admission?: Yes Plan: Likely as a result of malignant infiltration of the liver combined with patient's chronic alcohol use (6) Alcohol use disorder Is this a current diagnosis for this admission?: Yes Plan: Vital signs did not suggest any alcohol withdrawal time (7) Weakness Is this a current diagnosis for this admission?: Yes Plan: Planning discharge to [facility] but will hold off today given encephalopathy. (8) Anemia of chronic disease Is this a current diagnosis for this admission?: Yes - Time Time Spent with patient: 15-24 minutes
--- NOTE | 2019-11-24 15:44 | RADIOLOGY REPORT (SQ) ---
EXAM DESCRIPTION: CHEST SINGLE VIEW COMPLETED DATE/TIME: 11/24/2019 3:31 pm REASON FOR STUDY: leukocytosis, encephalopathy, occult infection? COMPARISON: 11/10/2019. EXAM PARAMETERS: NUMBER OF VIEWS: One view. TECHNIQUE: Single frontal radiographic view of the chest acquired. RADIATION DOSE: NA LIMITATIONS: None. FINDINGS: LUNGS AND PLEURA: No opacities, masses or pneumothorax. No pleural effusion. MEDIASTINUM AND HILAR STRUCTURES: No masses. Contour normal. HEART AND VASCULAR STRUCTURES: Heart normal in size. Normal vasculature. BONES: No acute findings. HARDWARE: Vascular port. OTHER: No other significant finding. IMPRESSION: NO ACUTE RADIOGRAPHIC FINDING IN THE CHEST. TECHNICAL DOCUMENTATION: JOB ID: [id number] 2010 [employer]- All Rights Reserved Reading location - IP/workstation name: [email or web address]
[2019-11-24] MEDS ORDERED: NALOXONE HCL INJ/PF 0.4 MG/1 ML SDV ONE ×2 (18:00→18:08)
--- NOTE | 2019-11-24 18:12 | RADIOLOGY REPORT (SQ) ---
EXAM DESCRIPTION: CT HEAD WITHOUT COMPLETED DATE/TIME: 11/24/2019 5:56 pm REASON FOR STUDY: change in LOC COMPARISON: 11/21/2019 TECHNIQUE: Axial images acquired through the brain without intravenous contrast. Images reviewed wi th bone, brain and subdural windows. Additional sagittal and coronal reconstructions were generated. Images stored on PACS. All CT scanners at this facility use dose modulation, iterative reconstruction, and/or weight based d osing when appropriate to reduce radiation dose to as low as reasonably achievable (ALARA). [facility]: Dose Right [facility]: CareDose [facility]: Dose Right [facility]: Teradose 4D [facility]: [email or web address] RADIATION DOSE: CT Rad equipment meets quality standard of care and radiation dose reduction techniq ues were employed. CTDIvol: 53.2 mGy. DLP: 1124 mGy-cm. mGy. LIMITATIONS: None. FINDINGS: VENTRICLES: Prominent. CEREBRUM: No masses. No hemorrhage. No midline shift. Areas of low density in the white matter mos t likely due to chronic micro-vascular ischemic change. No evidence for acute infarction. CEREBELLUM: No masses. No hemorrhage. No alteration of density. No evidence for acute infarction. EXTRAAXIAL SPACES: Mild age-related involutional change. No fluid collections. No masses. ORBITS AND GLOBE: No intra- or extraconal masses. Normal contour of globe without masses. CALVARIUM: No fracture. PARANASAL SINUSES: No fluid or mucosal thickening. SOFT TISSUES: No mass or hematoma. OTHER: No other significant finding. IMPRESSION: MILD CHRONIC CHANGES OF ATROPHY AND MICROVASCULAR ISCHEMIA. NO ACUTE PROCESS. EVIDENCE OF ACUTE STROKE: NO. TECHNICAL DOCUMENTATION: JOB ID: [id number] Quality ID # [id number]: Final reports with documentation of one or more dose reduction techniques (e.g., Au tomated exposure control, adjustment of the mA and/or kV according to patient size, use of iterative reconstruction technique) 2010 [employer]- All Rights Reserved Reading location - IP/workstation name: [email or web address]
[2019-11-24] MEDS ORDERED: NALOXONE HCL INJ/PF 0.4 MG/1 ML SDV IV ONE (18:30)
[2019-11-24] MEDS ORDERED: HYDRALAZINE HCL INJ/PF 20 MG/1 ML SDV IV PRN (18:39)
--- NOTE | 2019-11-24 18:50 | Progress Note ---
Provider Note Provider Note: Mr. Taylor appeared much more encephalopathic than earlier. This evening he was very much obtunded and shaking his hands. He was not responding to any questions which was a significant acute change from he was earlier. This time he was noted for mumbling and just making sounds. He could barely keep his eyes open. Pupils were now bilaterally. Patient was washed out for head CT stat which was negative for any acute abnormalities. Blood work from earlier revealed normal ammonia and normal kidney function. 0.4 of Narcan was administered with improvement in mental status. He was more awake and able to keep his eyes open but still now just drowsy. GCS is improved. Patient still drowsy but now able to mumble his name as he was earlier. I have called patient's Sister Tiarra and notified her. At this time patient appears to be protecting his airway though might have aspirated before. Will discontinue any Dilaudid or sedating medications.
--- NOTE | 2019-11-24 18:53 | ADVANCED CARE ---
- Diagnosis (1) Metabolic encephalopathy Diagnosis Current: Yes (3) Dysarthria Diagnosis Current: Yes (4) Colon cancer metastasized to liver Diagnosis Current: Yes (5) Chronic liver disease and cirrhosis Diagnosis Current: Yes Attendance: Myself and patient's sister Resuscitation Status: Do Not Resuscitate Discussion: I called patient's sister this evening to discuss patient's recent changes in mental status. I spoke to Vanesa who has been essentially making more decisions for patient. I discussed that patient became very much obtunded with some improvement with Narcan administration. Patient sister expresses that patient had been getting like that at home especially after taking Dilaudid. I discussed test results with her. I discussed in the events that patient is unable to protect airway due to mental status what the next step should be. She stated that she will discuss it over with her brothers and come to a joint decision. She called back and informed that after discussion, they have decided to make patient DNR/DNI. Time Spent: 17 mins
[2019-11-25] MEDS: LABETALOL HCL 200 MG TABLET PO SCH ×2 (06:33→14:21)
[2019-11-25 09:04] LABS: ABSOLUTE BASOPHILS # (AUTO) 0.1 10^3/uL (0.0-0.2); ABSOLUTE LYMPHOCYTES (AUTO) 1.3 10^3/uL (0.5-4.7); ABSOLUTE MONOCYTES (AUTO) 0.9 10^3/uL (0.1-1.4); ABSOLUTE NEUT (AUTO) 12.9 10^3/uL (1.7-8.2); BASOPHILS % (AUTO) 0.3 % (0-2); EOSINOPHILS % (AUTO) 0.2 % (0-6); HEMOGLOBIN 9.9 g/dL (13.5-17.0); LYMPHOCYTES % (AUTO) 8.5 % (13-45); MEAN CORPUSCULAR HEMOGLOBIN 33.3 pg (27.0-33.4); MEAN CORPUSCULAR HGB CONC 32.9 g/dL (32.0-36.0); MEAN CORPUSCULAR VOLUME 101 fl (80-97); MONOCYTES % (AUTO) 5.7 % (3-13); RED BLOOD COUNT 2.97 10^6/uL (4.35-5.55); RED CELL DISTRIBUTION WIDTH 19.1 % (11.5-14.0); SEGMENTED NEUTROPHILS % (AUTO) 85.3 % (42-78); TOTAL CELLS COUNTED % (AUTO) 100 %; WHITE BLOOD COUNT 15.2 10^3/uL (4.0-10.5)
[2019-11-25] MEDS: FUROSEMIDE 20 MG TABLET PO SCH (09:28)
[2019-11-25] MEDS: FAMOTIDINE 20 MG TABLET PO SCH ×2 (09:28→21:47)
[2019-11-25] MEDS: TAMSULOSIN HCL 0.4 MG CAP.SR.24H PO SCH (09:29)
[2019-11-25 09:34] LABS: PLATELET COUNT 85 10^3/uL (150-450)
--- NOTE | 2019-11-25 11:07 | PDOC PROGRESS REPORT ---
Subjective Progress Note for:: 11/25/19 Subjective:: Patient is more awake today. He is able to respond to questions and fully oriented. Still mumbles and seems to have lost his voice partially. Does not recollect most of the events of yesterday. Discussed with him about CODE STATUS and he confirms that he would like to maintain it as a DNR/DNI. Coughing quite a bit. Reason For Visit: LIVER FAILURE, METASTATIC COLON CANCER,WEAKNESS Physical Exam Vital Signs: Temp Pulse Resp BP Pulse Ox 97.6 F 85 20 108/57 L 99 11/25/19 07:00 11/25/19 07:00 11/25/19 07:00 11/25/19 07:00 11/25/19 07:00 Intake & Output 11/24/19 11/25/19 11/26/19 06:59 06:59 06:59 Intake Total 240 Output Total 500 Balance -260 Weight 52.5 kg 49.4 kg General appearance: PRESENT: no acute distress, cooperative Head exam: PRESENT: normocephalic Eye exam: PRESENT: scleral icterus Neck exam: ABSENT: JVD Respiratory exam: PRESENT: rhonchi - Seems more upper seems to be more in the upper airway, unlabored. ABSENT: tachypnea, wheezes Cardiovascular exam: PRESENT: RRR, +S1, +S2. ABSENT: tachycardia GI/Abdominal exam: PRESENT: ascites, distended. ABSENT: rebound, rigid, soft, tenderness Neurological exam: PRESENT: alert, awake, oriented to person, oriented to place, oriented to time, other - Mumbles, slurred speech. Results Laboratory Results: 11/25/19 08:39 11/24/19 10:14 11/24/19 11/25/19 10:14 08:39 WBC 12.6 H 15.2 H RBC 2.73 L 2.97 L Hgb 9.3 L 9.9 L Hct 27.3 L 30.0 L MCV 100 H 101 H MCH 34.0 H 33.3 MCHC 34.1 32.9 RDW 18.7 H 19.1 H Plt Count 74 L 85 L Seg Neutrophils % 85.3 H Impressions: Head MRI 11/22/19 00:00 IMPRESSION: No acute intracranial abnormality. EVIDENCE OF ACUTE STROKE: NO. Chest X-Ray 11/24/19 00:00 IMPRESSION: NO ACUTE RADIOGRAPHIC FINDING IN THE CHEST. Head CT 11/24/19 00:00 IMPRESSION: MILD CHRONIC CHANGES OF ATROPHY AND MICROVASCULAR ISCHEMIA. NO ACUTE PROCESS. EVIDENCE OF ACUTE STROKE: NO. Assessment and Plan - Diagnosis (1) Metabolic encephalopathy Is this a current diagnosis for this admission?: Yes Plan: His encephalopathy is likely secondary to narcotic administration. Seems to have resolved at this time. Would hold off on any further narcotics. Will monitor through today to ensure resolution of encephalopathy. (2) Bleeding from colostomy Is this a current diagnosis for this admission?: Yes Plan: Currently symptoms are resolved. Surgery notes that this is a frequent occurrence and may just have occurred from irritation of the ostomy site. Recommending manual pressure application if recurrence. Hemoglobin is steady. (3) Dysarthria Is this a current diagnosis for this admission?: Yes Plan: MRI of the brain is negative for any acute abnormalities. Stroke ruled out. (4) Colon cancer metastasized to liver Is this a current diagnosis for this admission?: Yes Plan: Patient was agreeable to hold off on further chemotherapy treatment until he comes out of rehab at SNF. I have recommended that patient pursue palliative and hospice care but he would like to discuss this with his primary oncologist Dr. Jacobs before deciding. (5) Chronic liver disease and cirrhosis Is this a current diagnosis for this admission?: Yes Plan: Likely as a result of malignant infiltration of the liver combined with patient's chronic alcohol use (6) Alcohol use disorder Is this a current diagnosis for this admission?: Yes Plan: No evidence of withdrawal throughout stay. (7) Weakness Is this a current diagnosis for this admission?: Yes Plan: Planning for discharge to SNF tomorrow. (8) Anemia of chronic disease Is this a current diagnosis for this admission?: Yes Plan: Likely secondary to malignancy. Hemoglobin stable for now. (9) Leukocytosis Qualifiers: Leukocytosis type: unspecified Qualified Code(s): D72.829 - Elevated white blood cell count, unspecified Is this a current diagnosis for this admission?: Yes Plan: Some bump noted in white count today. Chest x-ray yesterday morning showed no acute abnormalities. However, patient could have experienced some aspiration especially during his encephalopathy yesterday. I will empirically treat for possible developing early aspiration pneumonia especially given worsening cough with Augmentin for 5 days. - Time Time Spent with patient: 15-24 minutes
[2019-11-25] MEDS ORDERED: GUAIFENESIN SYRP 200 MG/10 ML UDC PO PRN (11:21)
[2019-11-25] MEDS: AMOXICILLIN TR/POT CLAVULANATE 500-125 MG TAB PO SCH ×2 (14:21→21:47)
[2019-11-25] MEDS ORDERED: ACETAMINOPHEN 325 MG TABLET ONE (15:44)
[2019-11-25] MEDS ORDERED: NORMAL SALINE 1000 ML 1,000 ML IV ONE (16:45)
[2019-11-25] MEDS: ACETAMINOPHEN 325 MG TABLET PO PRN (21:47)
[2019-11-26 05:16] LABS: ABSOLUTE EOSINOPHILS # (AUTO) 0.2 10^3/uL (0.0-0.6); ABSOLUTE LYMPHOCYTES (AUTO) 1.7 10^3/uL (0.5-4.7); ABSOLUTE MONOCYTES (AUTO) 0.8 10^3/uL (0.1-1.4); ABSOLUTE NEUT (AUTO) 13.7 10^3/uL (1.7-8.2); BASOPHILS % (AUTO) 0.2 % (0-2); HEMATOCRIT 27.5 % (37.9-51.0); HEMOGLOBIN 9.1 g/dL (13.5-17.0); LYMPHOCYTES % (AUTO) 10.5 % (13-45); MEAN CORPUSCULAR HEMOGLOBIN 33.7 pg (27.0-33.4); MEAN CORPUSCULAR HGB CONC 33.2 g/dL (32.0-36.0); MEAN CORPUSCULAR VOLUME 102 fl (80-97); MONOCYTES % (AUTO) 4.9 % (3-13); RED BLOOD COUNT 2.71 10^6/uL (4.35-5.55); RED CELL DISTRIBUTION WIDTH 18.8 % (11.5-14.0); SEGMENTED NEUTROPHILS % (AUTO) 83.4 % (42-78); TOTAL CELLS COUNTED % (AUTO) 100 %; WHITE BLOOD COUNT 16.4 10^3/uL (4.0-10.5)
[2019-11-26 06:06] LABS: PLATELET COUNT 71 10^3/uL (150-450)
[2019-11-26] MEDS ORDERED: ONDANSETRON HCL INJ/PF 4 MG/2 ML SDV IV PRN (07:30)
[2019-11-26] MEDS ORDERED: AMPICILLIN SOD/SULBACTAM 1.5 GM VIAL IV SCH (08:30)
[2019-11-26] MEDS: FAMOTIDINE 20 MG TABLET PO SCH ×2 (09:54→22:13)
[2019-11-26] MEDS: TAMSULOSIN HCL 0.4 MG CAP.SR.24H PO SCH (09:54)
[2019-11-26] MEDS: ACETAMINOPHEN 325 MG TABLET PO PRN (09:54)
[2019-11-26] MEDS: AMPICILLIN SODIUM/SULBACTAM NA 1.5 GM in NORMAL SALINE 50 ML IV SCH ×2 (09:55→17:08)
--- NOTE | 2019-11-26 14:46 | PDOC PROGRESS REPORT ---
Subjective Progress Note for:: 11/26/19 Subjective:: Today, patient is awake. Patient has no new complaints at this time besides his cough. Denies any shortness of breath or chest pain. Reason For Visit: LIVER FAILURE, METASTATIC COLON CANCER,WEAKNESS Physical Exam Vital Signs: Temp Pulse Resp BP Pulse Ox 98.9 F 91 14 96/61 L 94 11/26/19 11:00 11/26/19 11:00 11/26/19 11:00 11/26/19 11:00 11/26/19 11:00 Intake & Output 11/25/19 11/26/19 11/27/19 06:59 06:59 06:59 Intake Total 240 100 50 Output Total 500 Balance -260 100 50 Weight 49.4 kg 48 kg General appearance: PRESENT: no acute distress, cooperative Neck exam: ABSENT: JVD Respiratory exam: PRESENT: rhonchi - Upper airway rhonchi which clears upon coughing, unlabored. ABSENT: tachypnea, wheezes Cardiovascular exam: PRESENT: RRR, +S1, +S2. ABSENT: tachycardia GI/Abdominal exam: PRESENT: ascites - Mild, distended, mass - Hardness noted over palpation of the liver and upper abdomen with hepatomegaly. ABSENT: guarding, rebound, rigid, tenderness Neurological exam: PRESENT: alert, awake, oriented to person, oriented to place, oriented to time Skin exam: PRESENT: jaundice Results Laboratory Results: 11/26/19 04:21 11/24/19 10:14 11/26/19 04:21 WBC 16.4 H RBC 2.71 L Hgb 9.1 L Hct 27.5 L MCV 102 H MCH 33.7 H MCHC 33.2 RDW 18.8 H Plt Count 71 L Seg Neutrophils % 83.4 H Impressions: Head MRI 11/22/19 00:00 IMPRESSION: No acute intracranial abnormality. EVIDENCE OF ACUTE STROKE: NO. Chest X-Ray 11/24/19 00:00 IMPRESSION: NO ACUTE RADIOGRAPHIC FINDING IN THE CHEST. Head CT 11/24/19 00:00 IMPRESSION: MILD CHRONIC CHANGES OF ATROPHY AND MICROVASCULAR ISCHEMIA. NO ACUTE PROCESS. EVIDENCE OF ACUTE STROKE: NO. Assessment and Plan - Diagnosis (1) Metabolic encephalopathy Is this a current diagnosis for this admission?: Yes Plan: His encephalopathy is likely secondary to narcotic administration. Seems to have resolved at this time. Would hold off on any further narcotics. (2) Leukocytosis Qualifiers: Leukocytosis type: unspecified Qualified Code(s): D72.829 - Elevated white blood cell count, unspecified Is this a current diagnosis for this admission?: Yes Plan: Unfortunately WBC continues to rise. Chest x-ray 11/24/2019 showed no acute abnormalities. However, patient could have aspirated especially during his encephalopathic episode on that day. I will continue to empirically treat for possible developing early aspiration pneumonia especially given worsened cough but will switch antibiotics to Unasyn IV. (3) Bleeding from colostomy Is this a current diagnosis for this admission?: Yes Plan: Currently symptoms are resolved. Surgery notes that this is a frequent occurrence and may just have occurred from irritation of the ostomy site. Recommending manual pressure application if recurrence. Hemoglobin is steady. (4) Dysarthria Is this a current diagnosis for this admission?: Yes Plan: MRI of the brain is negative for any acute abnormalities. Stroke ruled out. (5) Colon cancer metastasized to liver Is this a current diagnosis for this admission?: Yes Plan: Patient was agreeable to hold off on further chemotherapy treatment until he comes out of rehab at SNF. Already planned for [facility]. I have consulted palliative care team. (6) Chronic liver disease and cirrhosis Is this a current diagnosis for this admission?: Yes Plan: Likely as a result of malignant infiltration of the liver combined with patient's chronic alcohol use (7) Alcohol use disorder Is this a current diagnosis for this admission?: Yes Plan: No evidence of withdrawal throughout stay. (8) Anemia of chronic disease Is this a current diagnosis for this admission?: Yes Plan: Likely secondary to malignancy. Hemoglobin stable for now. - Time Time Spent with patient: Less than 15 minutes
[2019-11-27] MEDS: AMPICILLIN SODIUM/SULBACTAM NA 1.5 GM in NORMAL SALINE 50 ML IV SCH ×3 (02:01→17:48)
[2019-11-27 06:28] LABS: HEMATOCRIT 30.9 % (37.9-51.0); HEMOGLOBIN 10.3 g/dL (13.5-17.0); MEAN CORPUSCULAR HEMOGLOBIN 33.6 pg (27.0-33.4); MEAN CORPUSCULAR HGB CONC 33.2 g/dL (32.0-36.0); MEAN CORPUSCULAR VOLUME 101 fl (80-97); RED BLOOD COUNT 3.05 10^6/uL (4.35-5.55); WHITE BLOOD COUNT 19.9 10^3/uL (4.0-10.5)
[2019-11-27 06:49] LABS: PLATELET COUNT 70 10^3/uL (150-450)
[2019-11-27 06:53] LABS: ABSOLUTE LYMPHOCYTES# (MANUAL) 0.4 10^3/uL (0.5-4.7); ANISOCYTOSIS 2+; BAND NEUTROPHILS % (MANUAL) 1 % (3-5); BASOPHILS % (MANUAL) 0 % (0-2); EOSINOPHILS % (MANUAL) 2 % (0-6); LYMPHOCYTES % (MANUAL) 2 % (13-45); MONOCYTES % (MANUAL) 5 % (3-13); SEGMENTED NEUTROPHILS % (MAN) 90 % (42-78); TOTAL CELLS COUNTED 100
[2019-11-27 06:56] LABS: PLATELET COMMENT DECREASED
[2019-11-27] MEDS: FAMOTIDINE 20 MG TABLET PO SCH ×2 (09:15→22:11)
[2019-11-27] MEDS: TAMSULOSIN HCL 0.4 MG CAP.SR.24H PO SCH (09:15)
--- NOTE | 2019-11-27 15:39 | PDOC PROGRESS REPORT ---
Subjective Progress Note for:: 11/27/19 Subjective:: No new complaints, difficulty speaking Reason For Visit: LIVER FAILURE, METASTATIC COLON CANCER,WEAKNESS Physical Exam Vital Signs: Temp Pulse Resp BP Pulse Ox 98.1 F 109 H 18 121/82 91 L 11/27/19 11:25 11/27/19 11:25 11/27/19 11:25 11/27/19 11:25 11/27/19 11:25 Intake & Output 11/26/19 11/27/19 11/28/19 06:59 06:59 06:59 Intake Total 100 175 766 Balance 100 175 766 Weight 48 kg 53 kg 53 kg General appearance: PRESENT: no acute distress, thin, other - Cachectic ill- looking Head exam: PRESENT: atraumatic Mouth exam: PRESENT: dry mucosa Respiratory exam: PRESENT: clear to auscultation sravanthi, unlabored Cardiovascular exam: PRESENT: RRR, +S1, +S2 GI/Abdominal exam: PRESENT: rigid, other - Colostomy Caput medusae Rectal exam: PRESENT: deferred Neurological exam: PRESENT: alert, awake Results Laboratory Results: 11/27/19 05:46 11/24/19 10:14 11/27/19 05:46 WBC 19.9 H RBC 3.05 L Hgb 10.3 L Hct 30.9 L MCV 101 H MCH 33.6 H MCHC 33.2 RDW 19.0 H Plt Count 70 L Seg Neutrophils % Not Reportable Impressions: Head MRI 11/22/19 00:00 IMPRESSION: No acute intracranial abnormality. EVIDENCE OF ACUTE STROKE: NO. Chest X-Ray 11/24/19 00:00 IMPRESSION: NO ACUTE RADIOGRAPHIC FINDING IN THE CHEST. Head CT 11/24/19 00:00 IMPRESSION: MILD CHRONIC CHANGES OF ATROPHY AND MICROVASCULAR ISCHEMIA. NO ACUTE PROCESS. EVIDENCE OF ACUTE STROKE: NO. Assessment and Plan - Diagnosis (1) Alcohol use disorder Is this a current diagnosis for this admission?: Yes Plan: No evidence of withdrawal throughout hospital stay. (2) Anemia of chronic disease Is this a current diagnosis for this admission?: Yes Plan: Likely secondary to malignancy. Hemoglobin remains stable for now. (3) Bleeding from colostomy Is this a current diagnosis for this admission?: Yes Plan: Currently symptoms are resolved. Surgery notes that this is a frequent occurrence and may just have occurred from irritation of the ostomy site. Recommending manual pressure application if recurrence. Hemoglobin remains steady. (4) Chronic liver disease and cirrhosis Is this a current diagnosis for this admission?: Yes Plan: Likely as a result of malignant infiltration of the liver combined with patient's chronic alcohol use Patient's prognosis is very poor (5) Colon cancer metastasized to liver Is this a current diagnosis for this admission?: Yes Plan: Patient was agreeable to hold off on further chemotherapy treatment until he comes out of rehab at SNF. Already planned for [facility]. He will greatly benefit from palliative care consult - Plan Summary Summary: Prognosis is very poor
[2019-11-28] MEDS: AMPICILLIN SODIUM/SULBACTAM NA 1.5 GM in NORMAL SALINE 50 ML IV SCH ×3 (02:57→17:35)
[2019-11-28] MEDS: FAMOTIDINE 20 MG TABLET PO SCH ×2 (10:31→21:35)
[2019-11-28] MEDS: TAMSULOSIN HCL 0.4 MG CAP.SR.24H PO SCH (10:36)
--- NOTE | 2019-11-28 15:35 | PDOC PROGRESS REPORT ---
Subjective Progress Note for:: 11/28/19 Subjective:: No new complaints, feels better today Reason For Visit: LIVER FAILURE, METASTATIC COLON CANCER,WEAKNESS Physical Exam Vital Signs: Temp Pulse Resp BP Pulse Ox 97.7 F 121 H 20 125/83 96 11/28/19 11:28 11/28/19 11:28 11/28/19 11:28 11/28/19 11:28 11/28/19 11:28 Intake & Output 11/27/19 11/28/19 11/29/19 06:59 06:59 06:59 Intake Total 175 1896 170 Balance 175 1896 170 Weight 53 kg 53 kg General appearance: PRESENT: no acute distress, thin - cachectic, ill looking Head exam: PRESENT: atraumatic Mouth exam: PRESENT: dry mucosa Neck exam: ABSENT: JVD Respiratory exam: PRESENT: clear to auscultation sravanthi, unlabored Cardiovascular exam: PRESENT: RRR, +S1, +S2 GI/Abdominal exam: PRESENT: distended, rigid, other - caput medusae Neurological exam: PRESENT: alert, awake Results Laboratory Results: 11/27/19 05:46 11/24/19 10:14 Impressions: Head MRI 11/22/19 00:00 IMPRESSION: No acute intracranial abnormality. EVIDENCE OF ACUTE STROKE: NO. Chest X-Ray 11/24/19 00:00 IMPRESSION: NO ACUTE RADIOGRAPHIC FINDING IN THE CHEST. Head CT 11/24/19 00:00 IMPRESSION: MILD CHRONIC CHANGES OF ATROPHY AND MICROVASCULAR ISCHEMIA. NO ACUTE PROCESS. EVIDENCE OF ACUTE STROKE: NO. Assessment and Plan - Diagnosis (1) Alcohol use disorder Is this a current diagnosis for this admission?: Yes Plan: No evidence of withdrawal throughout hospital stay. Will continue to monitor (2) Anemia of chronic disease Is this a current diagnosis for this admission?: Yes Plan: Likely secondary to malignancy. Hemoglobin remains stable for now. (3) Bleeding from colostomy Is this a current diagnosis for this admission?: Yes Plan: Currently symptoms are resolved. Surgery notes that this is a frequent occurrence and may just have occurred from irritation of the ostomy site. Recom mending manual pressure application if recurrence. Hemoglobin remains stable. (4) Chronic liver disease and cirrhosis Is this a current diagnosis for this admission?: Yes (5) Colon cancer metastasized to liver Is this a current diagnosis for this admission?: Yes Plan: Patient was agreeable to hold off on further chemotherapy treatment until he comes out of rehab at SNF. Already planned for [facility]. He will greatly benefit from palliative care consult Prognosis is poor - Plan Summary Summary: Prognosis is very poor
[2019-11-28] MEDS: DEXTROSE 5%-NORMAL SALINE 1,000 ML IV PRN (15:54)
[2019-11-28 17:17] LABS: ANION GAP 16 (5-19); BLOOD UREA NITROGEN 23 mg/dL (7-20); CALCIUM 8.5 mg/dL (8.4-10.2); CARBON DIOXIDE 24 mmol/L (22-30); CHLORIDE 95 mmol/L (98-107); GLUCOSE 135 mg/dL (75-110)
[2019-11-29] MEDS: AMPICILLIN SODIUM/SULBACTAM NA 1.5 GM in NORMAL SALINE 50 ML IV SCH ×3 (01:40→17:56)
[2019-11-29] MEDS: DEXTROSE 5%-NORMAL SALINE 1,000 ML IV PRN (05:37)
[2019-11-29 06:44] LABS: HEMATOCRIT 32.2 % (37.9-51.0); HEMOGLOBIN 10.5 g/dL (13.5-17.0); MEAN CORPUSCULAR HEMOGLOBIN 32.6 pg (27.0-33.4); MEAN CORPUSCULAR HGB CONC 32.5 g/dL (32.0-36.0); MEAN CORPUSCULAR VOLUME 100 fl (80-97); RED CELL DISTRIBUTION WIDTH 19.2 % (11.5-14.0); WHITE BLOOD COUNT 21.5 10^3/uL (4.0-10.5)
[2019-11-29 06:46] LABS: PLATELET COUNT 53 10^3/uL (150-450)
[2019-11-29 07:08] LABS: ABSOLUTE LYMPHOCYTES# (MANUAL) 0.6 10^3/uL (0.5-4.7); ABSOLUTE MONOCYTES # (MANUAL) 1.5 10^3/uL (0.1-1.4); BAND NEUTROPHILS % (MANUAL) 1 % (3-5); BASOPHILS % (MANUAL) 0 % (0-2); EOSINOPHILS % (MANUAL) 1 % (0-6); LYMPHOCYTES % (MANUAL) 3 % (13-45); MONOCYTES % (MANUAL) 7 % (3-13); SEGMENTED NEUTROPHILS % (MAN) 88 % (42-78); TOTAL CELLS COUNTED 100
[2019-11-29 07:10] LABS: ANISOCYTOSIS 2+; PLATELET COMMENT DECREASED; POIKILOCYTOSIS SLIGHT; TARGET CELLS SLIGHT
[2019-11-29] MEDS: TAMSULOSIN HCL 0.4 MG CAP.SR.24H PO SCH (11:40)
[2019-11-29] MEDS: FAMOTIDINE 20 MG TABLET PO SCH ×2 (11:41→21:22)
--- NOTE | 2019-11-29 16:47 | PDOC PROGRESS REPORT ---
Subjective Progress Note for:: 11/29/19 Subjective:: No new complaints, sitting up in chair Reason For Visit: LIVER FAILURE, METASTATIC COLON CANCER,WEAKNESS Physical Exam Vital Signs: Temp Pulse Resp BP Pulse Ox 97.6 F 116 H 17 123/87 H 98 11/29/19 11:13 11/29/19 11:13 11/29/19 11:13 11/29/19 11:13 11/29/19 11:13 Intake & Output 11/28/19 11/29/19 11/30/19 06:59 06:59 06:59 Intake Total 1896 1475 50 Output Total 200 Balance 1896 1275 50 Weight 53 kg 54.3 kg General appearance: PRESENT: no acute distress, other - ill looking, cachectic Mouth exam: PRESENT: dry mucosa Respiratory exam: PRESENT: clear to auscultation sravanthi Cardiovascular exam: PRESENT: RRR, +S1, +S2 GI/Abdominal exam: PRESENT: distended. ABSENT: tenderness Rectal exam: PRESENT: deferred Neurological exam: PRESENT: alert, awake, oriented to person Results Laboratory Results: 11/29/19 06:03 11/28/19 16:12 11/28/19 11/29/19 16:12 06:03 WBC 21.5 H RBC 3.20 L Hgb 10.5 L Hct 32.2 L MCV 100 H MCH 32.6 MCHC 32.5 RDW 19.2 H Plt Count 53 L Seg Neutrophils % Not Reportable Sodium 134.5 L Potassium 4.0 Chloride 95 L Carbon Dioxide 24 Anion Gap 16 BUN 23 H Creatinine 0.85 Est GFR ( Amer) > 60 Glucose 135 H Calcium 8.5 Impressions: Head MRI 11/22/19 00:00 IMPRESSION: No acute intracranial abnormality. EVIDENCE OF ACUTE STROKE: NO. Chest X-Ray 11/24/19 00:00 IMPRESSION: NO ACUTE RADIOGRAPHIC FINDING IN THE CHEST. Head CT 11/24/19 00:00 IMPRESSION: MILD CHRONIC CHANGES OF ATROPHY AND MICROVASCULAR ISCHEMIA. NO ACUTE PROCESS. EVIDENCE OF ACUTE STROKE: NO. Assessment and Plan - Diagnosis (1) Alcohol use disorder Is this a current diagnosis for this admission?: Yes Plan: No evidence of withdrawal throughout hospital stay. continue to monitor (2) Anemia of chronic disease Is this a current diagnosis for this admission?: Yes Plan: Likely secondary to malignancy. Hemoglobin remains stable . (3) Bleeding from colostomy Is this a current diagnosis for this admission?: Yes Plan: Currently symptoms are resolved. Surgery notes that this is a frequent occurrence and may just have occurred from irritation of the ostomy site. manual pressure application if recurrence. Hemoglobin remains stable. (4) Chronic liver disease and cirrhosis Is this a current diagnosis for this admission?: Yes (5) Colon cancer metastasized to liver Is this a current diagnosis for this admission?: Yes (6) Protein-calorie malnutrition, severe Is this a current diagnosis for this admission?: Yes Plan: Due to underlying illness, malignancy - Plan Summary Summary: Prognosis is very poor Patient will benefit from Palliative care consult WBC noted to be elevated, not sure etiology but patient relatively hemodynamically stable
[2019-11-29] MEDS: ACETAMINOPHEN 325 MG TABLET PO PRN (20:22)
[2019-11-30] MEDS: AMPICILLIN SODIUM/SULBACTAM NA 1.5 GM in NORMAL SALINE 50 ML IV SCH ×3 (02:04→17:37)
[2019-11-30] MEDS: DEXTROSE 5%-NORMAL SALINE 1,000 ML IV PRN (02:05)
[2019-11-30] MEDS: FAMOTIDINE 20 MG TABLET PO SCH ×2 (09:21→22:26)
[2019-11-30] MEDS: TAMSULOSIN HCL 0.4 MG CAP.SR.24H PO SCH (09:21)
--- NOTE | 2019-11-30 15:41 | PDOC PROGRESS REPORT ---
Subjective Progress Note for:: 11/30/19 Subjective:: No new complaints, ssays he doesnt feel too well today Reason For Visit: LIVER FAILURE, METASTATIC COLON CANCER,WEAKNESS Physical Exam Vital Signs: Temp Pulse Resp BP Pulse Ox 97.5 F 115 H 24 H 113/76 95 11/29/19 19:23 11/30/19 11:31 11/30/19 11:31 11/30/19 11:31 11/30/19 11:31 Intake & Output 11/29/19 11/30/19 12/01/19 06:59 06:59 06:59 Intake Total 1475 1627 170 Output Total 200 150 100 Balance 1275 1477 70 Weight 54.3 kg 54.7 kg General appearance: PRESENT: no acute distress, thin, other - cachectic, ill looking Head exam: PRESENT: atraumatic Mouth exam: PRESENT: dry mucosa Respiratory exam: PRESENT: clear to auscultation sravanthi, unlabored, other Cardiovascular exam: PRESENT: RRR, +S1 GI/Abdominal exam: PRESENT: distended, other - caput medusae Rectal exam: PRESENT: deferred Extremities exam: ABSENT: calf tenderness Neurological exam: PRESENT: other - sleeping but arousable Results Laboratory Results: 11/29/19 06:03 11/28/19 16:12 Impressions: Head MRI 11/22/19 00:00 IMPRESSION: No acute intracranial abnormality. EVIDENCE OF ACUTE STROKE: NO. Chest X-Ray 11/24/19 00:00 IMPRESSION: NO ACUTE RADIOGRAPHIC FINDING IN THE CHEST. Head CT 11/24/19 00:00 IMPRESSION: MILD CHRONIC CHANGES OF ATROPHY AND MICROVASCULAR ISCHEMIA. NO ACUTE PROCESS. EVIDENCE OF ACUTE STROKE: NO. Assessment and Plan - Diagnosis (1) Alcohol use disorder Is this a current diagnosis for this admission?: Yes Plan: No evidence of withdrawal throughout hospital stay. continue to monitor (2) Anemia of chronic disease Is this a current diagnosis for this admission?: Yes Plan: Likely secondary to malignancy. Hemoglobin remains stable . (3) Bleeding from colostomy Is this a current diagnosis for this admission?: Yes Plan: No further bleeding noted (4) Chronic liver disease and cirrhosis Is this a current diagnosis for this admission?: Yes Plan: Likely as a result of malignant infiltration of the liver combined with patient's chronic alcohol use Patient's prognosis is very poor (5) Colon cancer metastasized to liver Is this a current diagnosis for this admission?: Yes (6) Protein-calorie malnutrition, severe Is this a current diagnosis for this admission?: Yes Plan: Due to underlying illness, malignancy - Plan Summary Summary: Prognosis is very poor Patient will benefit from Palliative care consult WBC noted to be elevated, not sure etiology but patient relatively hemodynamically stable - Time Anticipated discharge: Other - unknown
[2019-12-01] MEDS: AMPICILLIN SODIUM/SULBACTAM NA 1.5 GM in NORMAL SALINE 50 ML IV SCH ×3 (02:10→17:53)
[2019-12-01 06:30] LABS: ANION GAP 13 (5-19); BLOOD UREA NITROGEN 21 mg/dL (7-20); CALCIUM 8.1 mg/dL (8.4-10.2); CARBON DIOXIDE 24 mmol/L (22-30); CHLORIDE 100 mmol/L (98-107); GLUCOSE 97 mg/dL (75-110); POTASSIUM 4.2 mmol/L (3.6-5.0)
[2019-12-01 06:33] LABS: HEMATOCRIT 32.2 % (37.9-51.0); HEMOGLOBIN 10.8 g/dL (13.5-17.0); MEAN CORPUSCULAR HEMOGLOBIN 33.3 pg (27.0-33.4); MEAN CORPUSCULAR HGB CONC 33.4 g/dL (32.0-36.0); MEAN CORPUSCULAR VOLUME 100 fl (80-97); RED BLOOD COUNT 3.23 10^6/uL (4.35-5.55); RED CELL DISTRIBUTION WIDTH 18.9 % (11.5-14.0); WHITE BLOOD COUNT 19.6 10^3/uL (4.0-10.5)
[2019-12-01 06:52] LABS: PLATELET COUNT 50 10^3/uL (150-450)
[2019-12-01 06:56] LABS: ABSOLUTE LYMPHOCYTES# (MANUAL) 1.2 10^3/uL (0.5-4.7); BASOPHILS % (MANUAL) 0 % (0-2); EOSINOPHILS % (MANUAL) 0 % (0-6); LYMPHOCYTES % (MANUAL) 6 % (13-45); MONOCYTES % (MANUAL) 5 % (3-13); SEGMENTED NEUTROPHILS % (MAN) 89 % (42-78); TOTAL CELLS COUNTED 100
[2019-12-01 07:00] LABS: ANISOCYTOSIS 2+; OVALOCYTES SLIGHT; POIKILOCYTOSIS 2+; TARGET CELLS SLIGHT; TEAR DROP CELLS SLIGHT; TOXIC GRANULATION 1+
[2019-12-01 07:01] LABS: PLATELET COMMENT DECREASED
--- NOTE | 2019-12-01 11:53 | PDOC PROGRESS REPORT ---
Subjective Progress Note for:: 12/01/19 Subjective:: No new complaints, more talkative today Reason For Visit: LIVER FAILURE, METASTATIC COLON CANCER,WEAKNESS Physical Exam Vital Signs: Temp Pulse Resp BP Pulse Ox 98.3 F 87 20 121/74 92 12/01/19 08:00 12/01/19 08:00 12/01/19 08:00 12/01/19 08:00 12/01/19 08:00 Intake & Output 11/30/19 12/01/19 12/02/19 06:59 06:59 07:59 Intake Total 1627 740 Output Total 150 200 Balance 1477 540 Weight 54.7 kg 55.6 kg General appearance: PRESENT: no acute distress, thin, other - cachectic, ill looking Head exam: PRESENT: atraumatic Neck exam: ABSENT: JVD Respiratory exam: PRESENT: rhonchi, unlabored. ABSENT: wheezes Cardiovascular exam: PRESENT: RRR, +S1, +S2 GI/Abdominal exam: PRESENT: distended, other - colostomy Rectal exam: PRESENT: deferred Extremities exam: ABSENT: calf tenderness Musculoskeletal exam: PRESENT: ambulatory Neurological exam: PRESENT: alert, awake, oriented to person, oriented to place, oriented to time Results Laboratory Results: 12/01/19 05:32 12/01/19 05:32 12/01/19 12/01/19 05:32 05:32 WBC 19.6 H RBC 3.23 L Hgb 10.8 L Hct 32.2 L MCV 100 H MCH 33.3 MCHC 33.4 RDW 18.9 H Plt Count 50 L Seg Neutrophils % Not Reportable Sodium 136.5 L Potassium 4.2 Chloride 100 Carbon Dioxide 24 Anion Gap 13 BUN 21 H Creatinine 0.73 Est GFR ( Amer) > 60 Glucose 97 Calcium 8.1 L Impressions: Head MRI 11/22/19 00:00 IMPRESSION: No acute intracranial abnormality. EVIDENCE OF ACUTE STROKE: NO. Chest X-Ray 11/24/19 00:00 IMPRESSION: NO ACUTE RADIOGRAPHIC FINDING IN THE CHEST. Head CT 11/24/19 00:00 IMPRESSION: MILD CHRONIC CHANGES OF ATROPHY AND MICROVASCULAR ISCHEMIA. NO ACUTE PROCESS. EVIDENCE OF ACUTE STROKE: NO. Assessment and Plan - Diagnosis (1) Alcohol use disorder Is this a current diagnosis for this admission?: Yes Plan: No evidence of withdrawal throughout hospital stay. continue to monitor (2) Anemia of chronic disease Is this a current diagnosis for this admission?: Yes Plan: Likely secondary to malignancy. Hemoglobin remains stable . (3) Bleeding from colostomy Is this a current diagnosis for this admission?: Yes Plan: No further bleeding noted (4) Chronic liver disease and cirrhosis Is this a current diagnosis for this admission?: Yes Plan: Likely as a result of malignant infiltration of the liver combined with patient's chronic alcohol use Patient's prognosis is very poor (5) Colon cancer metastasized to liver Is this a current diagnosis for this admission?: Yes Plan: Patient was agreeable to hold off on further chemotherapy treatment until he comes out of rehab at SNF. Already planned for [facility]. He will greatly benefit from palliative care consult Prognosis is poor I will try and discuss with POA re further treatment plans (6) Protein-calorie malnutrition, severe Is this a current diagnosis for this admission?: Yes Plan: Due to underlying illness, malignancy (7) Thrombocytopenia Is this a current diagnosis for this admission?: Yes Plan: No evidence of bleeding, likely from underlying liver disease, malignancy Will continue to follow - Plan Summary Summary: Prognosis is very poor Patient will benefit from Palliative care consult WBC noted to be elevated, not sure etiology but patient relatively hem odynamically stable Will repeat CXR and decide if need to continue abx - Inpatient Certification Based on my medical assessment, after consideration of the patient's comorbi dities, presenting symptoms, or acuity I expect that the services needed warrant INPATIENT care.: Yes Medical Necessity: Need Close Monitoring Due to Risk of Patient Decompensation, Risk of Diagnosis Which Will Require Inpatient Eval/Care/Monitoring
[2019-12-01] MEDS: TAMSULOSIN HCL 0.4 MG CAP.SR.24H PO SCH (12:49)
[2019-12-01] MEDS: FAMOTIDINE 20 MG TABLET PO SCH ×2 (13:06→22:00)
--- NOTE | 2019-12-01 18:05 | RADIOLOGY REPORT (SQ) ---
EXAM DESCRIPTION: CHEST 2 VIEWS COMPLETED DATE/TIME: 12/01/2019 4:55 pm REASON FOR STUDY: Follow up [facility] COMPARISON: 11/24/2019 TECHNIQUE: Frontal and lateral radiographic views of the chest acquired. NUMBER OF VIEWS: Two view. LIMITATIONS: None. FINDINGS: LUNGS AND PLEURA: No pneumothorax. No consolidation. Small bilateral pleural effusions. MEDIASTINUM AND HILAR STRUCTURES: Stable. HEART AND VASCULAR STRUCTURES: Stable. BONES: No acute findings. HARDWARE: Right chest port. OTHER: No other significant finding. IMPRESSION: No consolidation. Small bilateral pleural effusions. TECHNICAL DOCUMENTATION: JOB ID: [id number] 2010 [employer]- All Rights Reserved Reading location - IP/workstation name: [email or web address]
[2019-12-02] MEDS: AMPICILLIN SODIUM/SULBACTAM NA 1.5 GM in NORMAL SALINE 50 ML IV SCH ×2 (03:46→09:30)
[2019-12-02] MEDS: ACETAMINOPHEN 325 MG TABLET PO PRN ×2 (09:30→23:32)
[2019-12-02] MEDS: TAMSULOSIN HCL 0.4 MG CAP.SR.24H PO SCH (09:31)
[2019-12-02] MEDS: DEXTROSE 5%-NORMAL SALINE 1,000 ML IV PRN (09:34)
--- NOTE | 2019-12-02 10:17 | PDOC PROGRESS REPORT ---
Subjective Progress Note for:: 12/02/19 Subjective:: No new complaints, more talkative today Reason For Visit: LIVER FAILURE, METASTATIC COLON CANCER,WEAKNESS Physical Exam Vital Signs: Temp Pulse Resp BP Pulse Ox 97.6 F 108 H 20 115/79 95 12/02/19 07:51 12/02/19 07:51 12/02/19 07:51 12/02/19 07:51 12/02/19 07:51 Intake & Output 12/01/19 12/02/19 12/03/19 05:59 06:59 06:59 Intake Total Output Total Balance Weight General appearance: PRESENT: no acute distress, cooperative, other - cachectic, ill looking Head exam: PRESENT: atraumatic Neck exam: ABSENT: JVD, tenderness Respiratory exam: PRESENT: clear to auscultation sravanthi, unlabored Rectal exam: PRESENT: deferred Neurological exam: PRESENT: alert, awake, other Results Laboratory Results: 12/01/19 05:32 12/01/19 05:32 Impressions: Head MRI 11/22/19 00:00 IMPRESSION: No acute intracranial abnormality. EVIDENCE OF ACUTE STROKE: NO. Head CT 11/24/19 00:00 IMPRESSION: MILD CHRONIC CHANGES OF ATROPHY AND MICROVASCULAR ISCHEMIA. NO ACUTE PROCESS. EVIDENCE OF ACUTE STROKE: NO. Chest X-Ray 12/01/19 00:00 IMPRESSION: No consolidation. Small bilateral pleural effusions. Assessment and Plan - Diagnosis (1) Alcohol use disorder Is this a current diagnosis for this admission?: Yes (2) Anemia of chronic disease Is this a current diagnosis for this admission?: Yes (3) Bleeding from colostomy Is this a current diagnosis for this admission?: Yes (4) Chronic liver disease and cirrhosis Is this a current diagnosis for this admission?: Yes (5) Colon cancer metastasized to liver Is this a current diagnosis for this admission?: Yes (6) Protein-calorie malnutrition, severe Is this a current diagnosis for this admission?: Yes (7) Thrombocytopenia Is this a current diagnosis for this admission?: Yes - Plan Summary Summary: Prognosis is very poor Patient will benefit from Palliative care consult WBC noted to be elevated, not sure etiology but patient relatively hemodynamically stable Will repeat CXR and decide if need to continue abx 12/01 Family seem to indicate that hospice may be pursued as outpatient. Will clarify in am. Patient can likely be dc to Rehab in am Repeat CXR shows no acute finding. Will dc [facility] Leukocytosis likely from underlying malignancy - Time Time Spent with patient: 15-24 minutes Anticipated discharge: Home - Inpatient Certification Based on my medical assessment, after consideration of the patient's comorbidities, presenting symptoms, or acuity I expect that the services needed warrant INPATIENT care.: Yes
[2019-12-02] MEDS: FAMOTIDINE 20 MG TABLET PO SCH ×2 (13:26→22:50)
[2019-12-03 05:53] LABS: ANION GAP 10 (5-19); BLOOD UREA NITROGEN 25 mg/dL (7-20); CALCIUM 7.9 mg/dL (8.4-10.2); CARBON DIOXIDE 22 mmol/L (22-30); CHLORIDE 103 mmol/L (98-107); GLUCOSE 102 mg/dL (75-110); POTASSIUM 4.2 mmol/L (3.6-5.0)
[2019-12-03] MEDS: FAMOTIDINE 20 MG TABLET PO SCH ×2 (10:44→21:34)
[2019-12-03] MEDS: TAMSULOSIN HCL 0.4 MG CAP.SR.24H PO SCH (11:26)
[2019-12-03] MEDS: DEXTROSE 5%-NORMAL SALINE 1,000 ML IV PRN ×2 (11:28→21:26)
--- NOTE | 2019-12-03 15:50 | PDOC PROGRESS REPORT ---
Subjective Progress Note for:: 12/03/19 Subjective:: No new complaints, more talkative today but still difficult to carry out a meaningful conversation due to his speech Reason For Visit: LIVER FAILURE, METASTATIC COLON CANCER,WEAKNESS Physical Exam Vital Signs: Temp Pulse Resp BP Pulse Ox 97.4 F 98 20 113/73 92 12/02/19 23:38 12/03/19 11:04 12/03/19 11:04 12/03/19 11:04 12/03/19 11:04 Intake & Output 12/02/19 12/03/19 12/04/19 06:59 06:59 06:59 Intake Total 1909 120 Output Total Balance 1909 120 Weight 57.4 kg General appearance: PRESENT: no acute distress, thin, other - cachectic, ill looking Mouth exam: PRESENT: dry mucosa Neck exam: ABSENT: JVD Respiratory exam: PRESENT: clear to auscultation sravanthi, unlabored Cardiovascular exam: PRESENT: RRR, +S1, +S2 GI/Abdominal exam: PRESENT: normal bowel sounds, other - colostomy with brown stool Caput medusae Rectal exam: PRESENT: deferred Results Laboratory Results: 12/01/19 05:32 12/03/19 05:06 12/03/19 05:06 Sodium 134.8 L Potassium 4.2 Chloride 103 Carbon Dioxide 22 Anion Gap 10 BUN 25 H Creatinine 0.89 Est GFR ( Amer) > 60 Glucose 102 Calcium 7.9 L Impressions: Head MRI 11/22/19 00:00 IMPRESSION: No acute intracranial abnormality. EVIDENCE OF ACUTE STROKE: NO. Head CT 11/24/19 00:00 IMPRESSION: MILD CHRONIC CHANGES OF ATROPHY AND MICROVASCULAR ISCHEMIA. NO ACUTE PROCESS. EVIDENCE OF ACUTE STROKE: NO. Chest X-Ray 12/01/19 00:00 IMPRESSION: No consolidation. Small bilateral pleural effusions. Assessment and Plan - Diagnosis (1) Alcohol use disorder Is this a current diagnosis for this admission?: Yes (2) Anemia of chronic disease Is this a current diagnosis for this admission?: Yes Plan: Likely secondary to malignancy. Hemoglobin remains stable . (3) Bleeding from colostomy Is this a current diagnosis for this admission?: Yes (4) Chronic liver disease and cirrhosis Is this a current diagnosis for this admission?: Yes Plan: Likely as a result of malignant infiltration of the liver combined with patient's chronic alcohol use Patient's prognosis is very poor (5) Colon cancer metastasized to liver Is this a current diagnosis for this admission?: Yes (6) Protein-calorie malnutrition, severe Is this a current diagnosis for this admission?: Yes Plan: Due to underlying illness, malignancy (7) Thrombocytopenia Is this a current diagnosis for this admission?: Yes Plan: No evidence of bleeding, likely from underlying liver disease, malignancy Will continue to follow as necessary - Plan Summary Summary: Prognosis is very poor Patient will benefit from Palliative care consult WBC noted to be elevated, not sure etiology but patient relatively hemodynamically stable Will repeat CXR and decide if need to continue abx 12/01 Family seem to indicate that hospice may be pursued as outpatient. Will clarify in am. Patient can likely be dc to Rehab in am Repeat CXR shows no acute finding. Will dc [facility] Leukocytosis likely from underlying malignancy 12/02 prognosis remains very poor. At this time the plan is for possible long- term placement or rehab with arrangements for hospice as outpatient. Home with hospice is not an option as per family. I believe at this time end of life preparations is appropriate.
[2019-12-04] MEDS: ACETAMINOPHEN 325 MG TABLET PO PRN (08:37)
[2019-12-04] MEDS: TAMSULOSIN HCL 0.4 MG CAP.SR.24H PO SCH (09:52)
[2019-12-04] MEDS: FAMOTIDINE 20 MG TABLET PO SCH (09:52)
[2019-12-04 14:46] VITALS: BP 118/64
--- NOTE | 2019-12-04 15:02 | PDOC TRANSFER SUMMARY ---
Impression - Admit/DC Date/PCP Admission Date/Primary Care Provider: 11/21/19 14:31 KEY MARTINEZ MD Discharge Date: 12/04/19 - Discharge Diagnosis (1) Alcohol use disorder Is this a current diagnosis for this admission?: Yes (2) Anemia of chronic disease Is this a current diagnosis for this admission?: Yes (3) Bleeding from colostomy Is this a current diagnosis for this admission?: Yes (4) Chronic liver disease and cirrhosis Is this a current diagnosis for this admission?: Yes (5) Colon cancer metastasized to liver Is this a current diagnosis for this admission?: Yes (7) Leukocytosis Is this a current diagnosis for this admission?: Yes (8) Metabolic encephalopathy Is this a current diagnosis for this admission?: Yes (9) Protein-calorie malnutrition, severe Is this a current diagnosis for this admission?: Yes - Assessment Summary: Prognosis is very poor Patient will benefit from Palliative care consult WBC noted to be elevated, not sure etiology but patient relatively hemodynamically stable Will repeat CXR and decide if need to continue abx 12/01 Family seem to indicate that hospice may be pursued as outpatient. Will clarify in am. Patient can likely be dc to Rehab in am Repeat CXR shows no acute finding. Will dc Unasyn Leukocytosis likely from underlying malignancy 12/02 prognosis remains very poor. At this time the plan is for possible long- term placement or rehab with arrangements for hospice as outpatient. Home with hospice is not an option as per family. I believe at this time end of life preparations is appropriate. - Additional Information Resuscitation Status: Do Not Resuscitate Referrals: AJCQUE CRUM MD [NO LOCAL MD] - Home Medications: Omeprazole [Prilosec 40 mg Capsule] 20 mg PO BID 08/24/12 Tamsulosin HCl [Flomax] 0.4 mg PO DAILY 10/31/18 Hydromorphone HCl [Dilaudid 2 mg Tablet] 2 mg PO Q6HP PRN #10 tablet 11/10/19 Doxepin HCl [Sinequan 25 mg Capsule] 1 cap PO BID 11/14/19 Labetalol HCl 100 mg PO TID 11/14/19 Oxycodone HCl/Acetaminophen [Endocet 5-325 Tablet] 1 each PO QIDP PRN 11/14/19 Prochlorperazine Maleate [Compazine 10 mg Tablet] 1 tab PO ASDIR PRN 11/14/19 Furosemide [Lasix 20 mg Tablet] 20 mg PO QAM 11/21/19 History of Present Illiness History of Present Illness: AYE ROCKWELL is a 69 year old male with history of colon cancer with metastasis to liver and bone s/p colostomy and on chemo, chronic alcohol use, hypertension, BPH, lives alone, who presents to the hospital with his siblings after being noted to have bleeding from his ostomy site. Patient sister noted significant bleeding this morning that soaked about 4 paper towels. Is unable to tell if the bleeding was actually from within the stoma just around the surface. I discussed with patient's sister as well as his brothers and himself to obtain history. It was noted that patient lives alone and has been experiencing multiple falls recently. Over the past 3 weeks patient has had sig nificant decline in functional status and has also developed dysarthria according to patient's brothers within the past 1-1/2 weeks to the point where it is difficult for them to understand him. Patient has no known history of brain metastasis according to family. Patient has been receiving chemotherapy and is planning to start on the new type of chemo today with his oncologist Dr. trimble at [place]. Hospital Course Hospital Course: This patient is chronically ill and has a history of colon cancer metastatic to the liver, on top of that he has some alcoholic liver disease. He frequently has some bleeding from his colostomy which is normal for him. He is also anemic from his chronic disease. At one point in his hospitalization he got obtunded from narcotic use but that has been addressed. He has had a plan in place to go to rehab for some time but there has been some vacillation by his family regarding their wishes. Ultimately, they have decided that with his poor condition he should go on hospice but they do not feel like they can take care of him at home. They have decided to send him to long-term care with hospice. The arrangements have been made and he is being discharged today in stable condition. At one point it was thought he had an aspiration pneumonia and so he is received a complete course of IV antibiotics. Physical Exam Vital Signs: Temp Pulse Resp BP Pulse Ox 98.4 F 59 L 17 118/64 100 12/04/19 12:00 12/04/19 12:00 12/04/19 12:00 12/04/19 12:00 12/04/19 12:00 Intake & Output 12/03/19 12/04/19 12/05/19 06:59 06:59 06:59 Intake Total 1909 1188 Balance 1909 1188 Weight 57.4 kg 63.8 kg 63.8 kg General appearance: PRESENT: no acute distress, thin, other - cachectic, ill looking Mouth exam: PRESENT: dry mucosa Neck exam: ABSENT: JVD Respiratory exam: PRESENT: clear to auscultation sravanthi, unlabored Cardiovascular exam: PRESENT: RRR, +S1, +S2 GI/Abdominal exam: PRESENT: normal bowel sounds, other - colostomy with brown stool Caput medusae Results Laboratory Results: WBC 19.6 10^3/uL (4.0-10.5) H 12/01/19 05:32 RBC 3.23 10^6/uL (4.35-5.55) L 12/01/19 05:32 Hgb 10.8 g/dL (13.5-17.0) L 12/01/19 05:32 Hct 32.2 % (37.9-51.0) L 12/01/19 05:32 MCV 100 fl (80-97) H 12/01/19 05:32 MCH 33.3 pg (27.0-33.4) 12/01/19 05:32 MCHC 33.4 g/dL (32.0-36.0) 12/01/19 05:32 RDW 18.9 % (11.5-14.0) H 12/01/19 05:32 Plt Count 50 10^3/uL (150-450) L 12/01/19 05:32 Lymph % (Auto) Not Reportable 12/01/19 05:32 [place] % (Auto) Not Reportable 12/01/19 05:32 Eos % (Auto) Not Reportable 12/01/19 05:32 Baso % (Auto) Not Reportable 12/01/19 05:32 Reticulocyte # 0.088 10^6/uL (0.028-0.122) 11/22/19 06:43 Absolute Neuts (auto) Not Reportable 12/01/19 05:32 Absolute Lymphs (auto) Not Reportable 12/01/19 05:32 Absolute Monos (auto) Not Reportable 12/01/19 05:32 Absolute Eos (auto) Not Reportable 12/01/19 05:32 Absolute Basos (auto) Not Reportable 12/01/19 05:32 Total Counted 100 12/01/19 05:32 Seg Neutrophils % Not Reportable 12/01/19 05:32 Seg Neuts % (Manual) 89 % (42-78) H 12/01/19 05:32 Band Neutrophils % 1 % (3-5) L 11/29/19 06:03 Lymphocytes % (Manual) 6 % (13-45) L 12/01/19 05:32 Monocytes % (Manual) 5 % (3-13) 12/01/19 05:32 Eosinophils % (Manual) 0 % (0-6) 12/01/19 05:32 Basophils % (Manual) 0 % (0-2) 12/01/19 05:32 Abs Neuts (Manual) 17.4 10^3/uL (1.7-8.2) H 12/01/19 05:32 Abs Lymphs (Manual) 1.2 10^3/uL (0.5-4.7) 12/01/19 05:32 Abs Monocytes (Manual) 1.0 10^3/uL (0.1-1.4) 12/01/19 05:32 Absolute Eos (Manual) 0.0 10^3/uL (0.0-0.6) 12/01/19 05:32 Abs Basophils (Manual) 0.0 10^3/uL (0.0-0.2) 12/01/19 05:32 Toxic Granulation 1+ 12/01/19 05:32 Platelet Comment DECREASED 12/01/19 05:32 Poikilocytosis 2+ 12/01/19 05:32 Anisocytosis 2+ 12/01/19 05:32 Macrocytosis 1+ 11/29/19 06:03 Target Cells SLIGHT 12/01/19 05:32 Tear Drop Cells SLIGHT 12/01/19 05:32 Ovalocytes SLIGHT 12/01/19 05:32 Retic Count (auto) 3.35 % (0.66-2.85) H 11/22/19 06:43 PT 18.3 SEC (11.4-15.4) H 11/21/19 09:43 INR 1.51 11/21/19 09:43 APTT 40.1 SEC (23.5-35.8) H 11/21/19 09:43 Sodium 134.8 mmol/L (137-145) L 12/03/19 05:06 Potassium 4.2 mmol/L (3.6-5.0) 12/03/19 05:06 Chloride 103 mmol/L (98-107) 12/03/19 05:06 Carbon Dioxide 22 mmol/L (22-30) 12/03/19 05:06 Anion Gap 10 (5-19) 12/03/19 05:06 BUN 25 mg/dL (7-20) H 12/03/19 05:06 Creatinine 0.89 mg/dL (0.52-1.25) 12/03/19 05:06 Est GFR ( Amer) > 60 (>60) 12/03/19 05:06 Est GFR (MDRD) Non-Af > 60 (>60) 12/03/19 05:06 Glucose 102 mg/dL (75-110) 12/03/19 05:06 POC Glucose 112 mg/dL (70-110) H 11/24/19 17:35 Calcium 7.9 mg/dL (8.4-10.2) L 12/03/19 05:06 Phosphorus 4.6 mg/dL (2.5-4.5) H 11/22/19 06:43 Magnesium 2.0 mg/dL (1.6-2.3) 11/22/19 06:43 Iron 37.3 ug/dL (49-181) L 11/22/19 06:43 TIBC 161 ug/dL (250-450) L 11/22/19 06:43 % Saturation 23 % 11/22/19 06:43 Ferritin 3710.00 ng/mL (17.9-464.0) H 11/22/19 06:43 Total Bilirubin 6.9 mg/dL (0.2-1.3) H 11/24/19 10:14 Direct Bilirubin 5.7 mg/dL (0.0-0.4) H 11/24/19 10:14 Neonat Total Bilirubin Not Reportable 11/24/19 10:14 Neonat Direct Bilirubin Not Reportable 11/24/19 10:14 Neonat Indirect Bili Not Reportable 11/24/19 10:14 AST 235 U/L (17-59) H 11/24/19 10:14 ALT 36 U/L (<50) 11/24/19 10:14 Alkaline Phosphatase 1475 U/L (38-126) H 11/24/19 10:14 Ammonia < 8.7 umol/L (9-33) L 11/24/19 10:14 Total Protein 6.3 g/dL (6.3-8.2) 11/24/19 10:14 Albumin 2.8 g/dL (3.5-5.0) L 11/24/19 10:14 Lipase 18.1 U/L (23-300) L 11/21/19 09:04 Vitamin B12 815.0 pg/mL (239-931) 11/22/19 06:43 Folate > 20.00 ng/mL (>2.76) 11/22/19 06:43 Urine Color YELLOW 11/21/19 15:20 Urine Appearance TURBID 11/21/19 15:20 Urine pH 5.0 (5.0-9.0) 11/21/19 15:20 Ur Specific [place] 1.019 11/21/19 15:20 Urine Protein NEGATIVE mg/dL (NEGATIVE) 11/21/19 15:20 Urine Glucose (UA) NEGATIVE mg/dL (NEGATIVE) 11/21/19 15:20 Urine Ketones NEGATIVE mg/dL (NEGATIVE) 11/21/19 15:20 Urine Blood NEGATIVE (NEGATIVE) 11/21/19 15:20 Urine Nitrite NEGATIVE (NEGATIVE) 11/21/19 15:20 Urine Bilirubin NEGATIVE (NEGATIVE) 11/21/19 15:20 Urine Urobilinogen 4.0 mg/dL (<2.0) H 11/21/19 15:20 Ur Leukocyte Esterase NEGATIVE (NEGATIVE) 11/21/19 15:20 Urine WBC (Auto) 3 /HPF 11/21/19 15:20 U Hyaline Cast (Auto) 22 /LPF 11/21/19 15:20 Urine Bacteria (Auto) TRACE /HPF 11/21/19 15:20 Urine Mucus (Auto) RARE /LPF 11/21/19 15:20 Urine Ascorbic Acid NEGATIVE (NEGATIVE) 11/21/19 15:20 Impressions: Head CT 11/21/19 11:46 IMPRESSION: MILD CHRONIC CHANGES OF ATROPHY AND MICROVASCULAR ISCHEMIA. NO ACUTE PROCESS. EVIDENCE OF ACUTE STROKE: NO. Head MRI 11/22/19 00:00 IMPRESSION: No acute intracranial abnormality. EVIDENCE OF ACUTE STROKE: NO. Chest X-Ray 11/24/19 00:00 IMPRESSION: NO ACUTE RADIOGRAPHIC FINDING IN THE CHEST. Head CT 11/24/19 00:00 IMPRESSION: MILD CHRONIC CHANGES OF ATROPHY AND MICROVASCULAR ISCHEMIA. NO ACUTE PROCESS. EVIDENCE OF ACUTE STROKE: NO. Chest X-Ray 12/01/19 00:00 IMPRESSION: No consolidation. Small bilateral pleural effusions. Plan Time Spent: Greater than 30 Minutes Stroke Is this a Stroke Patient?: No Acute Heart Failure - Is this a Heart Failure Patient?: No
== END 2019-12-04 17:41 | DRG 435 ==
LOC: ER 08:31 → EH 14:31 → 5 18:04
PROVIDERS: ADMIT Internal Medicine; ATTEND Internal Medicine
DX: C78.7 Secondary malignant neoplasm of liver and intrahepatic bile duct (principal); E43 Unspecified severe protein-calorie malnutrition; G93.41 Metabolic encephalopathy; K94.01 Colostomy hemorrhage; C18.9 Malignant neoplasm of colon, unspecified; C79.51 Secondary malignant neoplasm of bone; Z68.1 Body mass index [BMI] 19.9 or less, adult; R62.7 Adult failure to thrive; S51.812A Laceration without foreign body of left forearm, initial encounter; S51.811A Laceration without foreign body of right forearm, initial encounter; I10 Essential (primary) hypertension; R47.1 Dysarthria and anarthria; D63.0 Anemia in neoplastic disease; K70.30 Alcoholic cirrhosis of liver without ascites; M19.90 Unspecified osteoarthritis, unspecified site; F17.210 Nicotine dependence, cigarettes, uncomplicated; W19.XXXA Unspecified fall, initial encounter; Y83.8 Other surgical procedures as the cause of abnormal reaction of the patient, or of later complication, without mention of misadventure at the time of the procedure; Y92.122 Bedroom in nursing home as the place of occurrence of the external cause; Z60.2 Problems related to living alone
CPT/HCPCS: 36415; 70450; 70553; 71045; 71046; 80048; 80053; 81001; 82140; 82607; 82728; 82746; 82962; 83540; 83550; 83690; 83735; 84100; 85025; 85027; 85045; 85610; 85730; 99285; A9576; J0295; J2310; J3490; J7030; J7042

== ENCOUNTER 2019-12-05 14:37 | Emergency (ER) | payer MEDICARE, MEDICAID ==
[2019-12-05] MEDS ORDERED: NORMAL SALINE 1000 ML 1,000 ML IV ONE (14:49)
[2019-12-05] MEDS ORDERED: MIDAZOLAM HCL 50 MG/100 ML RTUINJ IV PRN (14:50)
[2019-12-05] MEDS ORDERED: MORPHINE SULFATE 10 MG/ML INJ IV ONE ×5 (15:03→19:51)
[2019-12-05] MEDS ORDERED: ONDANSETRON HCL INJ/PF 4 MG/2 ML SDV IV ONE (15:04)
--- NOTE | 2019-12-05 15:06 | RADIOLOGY REPORT (SQ) ---
EXAM DESCRIPTION: CHEST SINGLE VIEW COMPLETED DATE/TIME: 12/05/2019 2:55 pm REASON FOR STUDY: ETT placement COMPARISON: 12/01/2019 EXAM PARAMETERS: NUMBER OF VIEWS: One view. TECHNIQUE: Single frontal radiographic view of the chest acquired. RADIATION DOSE: NA LIMITATIONS: None. FINDINGS: LUNGS AND PLEURA: Endotracheal tube is been placed. Tip lies 5.1 cm above the marcin. No pneumothorax. No consolidation or effusions. MEDIASTINUM AND HILAR STRUCTURES: No masses. Contour normal. HEART AND VASCULAR STRUCTURES: Heart normal in size. Normal vasculature. BONES: No acute findings. HARDWARE: [id number]-[id number] is in place. Catheter tip overlies the SVC right atrial junction. Electroni c device overlies the left ventricle. Defibrillator pads overlie the lower chest. OTHER: No other significant finding. IMPRESSION: Endotracheal tubes in satisfactory position. Lung arteaga are clear. No pneumothorax. TECHNICAL DOCUMENTATION: JOB ID: [id number] 2010 [employer]- All Rights Reserved Reading location - IP/workstation name: [email or web address]
[2019-12-05 15:21] LABS: HEMATOCRIT 29.8 % (37.9-51.0); HEMOGLOBIN 9.1 g/dL (13.5-17.0); MEAN CORPUSCULAR HEMOGLOBIN 33.5 pg (27.0-33.4); MEAN CORPUSCULAR HGB CONC 30.6 g/dL (32.0-36.0); PARTIAL THROMBOPLASTIN TIME 70.2 SEC (23.5-35.8); RED BLOOD COUNT 2.72 10^6/uL (4.35-5.55); RED CELL DISTRIBUTION WIDTH 21.3 % (11.5-14.0); WHITE BLOOD COUNT 26.4 10^3/uL (4.0-10.5)
[2019-12-05 15:34] LABS: ALKALINE PHOSPHATASE 957 U/L (38-126); ANION GAP 18 (5-19); BILIRUBIN,DIRECT 9.4 mg/dL (0.0-0.4); BILIRUBIN,TOTAL 10.6 mg/dL (0.2-1.3); BLOOD UREA NITROGEN 28 mg/dL (7-20); CALCIUM 7.3 mg/dL (8.4-10.2); CARBON DIOXIDE 13 mmol/L (22-30); CHLORIDE 103 mmol/L (98-107); GLUCOSE 113 mg/dL (75-110); POTASSIUM 4.9 mmol/L (3.6-5.0); TOTAL PROTEIN 5.2 g/dL (6.3-8.2)
[2019-12-05 15:43] LABS: INTERNATIONAL RATION (INR) 4.98; PROTHROMBIN TIME 47.7 SEC (11.4-15.4)
[2019-12-05 15:46] LABS: MEAN CORPUSCULAR VOLUME 110 fl (80-97); PLATELET COUNT 72 10^3/uL (150-450)
[2019-12-05 15:47] LABS: ABSOLUTE LYMPHOCYTES# (MANUAL) 1.3 10^3/uL (0.5-4.7); ABSOLUTE MONOCYTES # (MANUAL) 0.5 10^3/uL (0.1-1.4); BASOPHILS % (MANUAL) 0 % (0-2); EOSINOPHILS % (MANUAL) 1 % (0-6); LYMPHOCYTES % (MANUAL) 5 % (13-45); MONOCYTES % (MANUAL) 2 % (3-13); SEGMENTED NEUTROPHILS % (MAN) 92 % (42-78); TOTAL CELLS COUNTED 100
[2019-12-05 15:52] LABS: ANISOCYTOSIS 3+; ASPARTATE AMINO TRANSFERASE 966 U/L (17-59)
[2019-12-05 15:53] LABS: PLATELET COMMENT DECREASED
[2019-12-05 17:23] VITALS: BP 61/49
--- NOTE | 2019-12-05 19:31 | ER Document Report ---
ED General - General Chief Complaint: Unresponsive Stated Complaint: POST ARREST Primary Care Provider: KEY MARTINEZ MD [Primary Care Provider] - Follow up as needed TRAVEL OUTSIDE OF THE [place] IN LAST 30 DAYS: No - HPI Notes: Patient is a 69-year-old male with end-stage liver disease, cirrhosis, colon cancer with liver metastasis, sent into the emergency department for evaluation after a cardiac arrest. Evidently the patient was discharged to [facility] care [facility] yesterday. He was to be set up with end-of-life care/hospice. While discussing decisions with correctional counselor/case manager, the patient decided to withdraw his DNR. He was found down, after approximately 20 minutes, and found to be in cardiac a rrest. Per EMS the patient was in PEA. He received chest compressions, 2 mg of epinephrine, and intubation. They did have return of circulation, and the patient was brought here to the emergency department for evaluation. - Related Data Allergies/Adverse Reactions: valsartan [From Diovan] Allergy (Unknown, Verified 11/14/19 13:40) hydromorphone Allergy (Verified 11/21/19 08:52) Past Medical History - General Information source: Relative, [facility] Records, Outside Facility Records - Social History Smoking Status: Unknown if Ever Smoked Family History: Arthritis, CAD, Hyperlipidemia, Hypertension Patient has suicidal ideation: No Patient has homicidal ideation: No - Past Medical History Cardiac Medical History: Reports: Hx Hypertension Denies: Hx Atrial Fibrillation, Hx Congestive Heart Failure, Hx Coronary Artery Disease, Hx Heart Attack, Hx Hypercholesterolemia, Hx Peripheral Vascular Disease, Hx Pulmonary Embolism, Hx Heart Murmur Pulmonary Medical History: Denies: Hx Asthma, Hx Bronchitis, Hx COPD, Hx Pneumonia, Hx Respiratory Failure, Hx Sleep Apnea, Hx Tuberculosis Neurological Medical History: Denies: Hx Cerebrovascular Accident, Hx Seizures, Hx Parkinson's Disease Endocrine Medical History: Denies: Hx Graves' Disease, Hx Hyperthyroidism, Hx Hypothyroidism Renal/ Medical History: Denies: Hx Benign Prostatic Hyperplasia, Hx End Stage Renal Disease, Hx Kidney Stones, Hx Peritoneal Dialysis Malignancy Medical History: Reports Hx Colorectal Cancer - metastasis to liver, Denies Hx Lung Cancer GI Medical History: Reports: Hx Cirrhosis, Hx Hiatal Hernia, Hx Liver Failure, Hx Ulcer - bleeding ulcers, Hx Colonoscopy, Hx Endoscopy. Denies: Hx Crohn's Disease, Hx Gastroesophageal Reflux Disease, Hx Irritable Bowel, Hx Pancreatitis Musculoskeletal Medical History: Reports Hx Arthritis - GENERALIZED, Denies Hx Fibromyalgia, Denies Hx Multiple Sclerosis, Denies Hx Muscular Dystrophy, Reports Hx Musculoskeletal Deformity, Reports Hx Musculoskeletal Trauma, Denies Hx Systemic Lupus Erythematosus Psychiatric Medical History: Denies: Hx Bipolar Disorder, Hx Dementia, Hx Depression, Hx Post Traumatic St ress Disorder, Hx Schizophrenia Traumatic Medical History: Reports: Hx Fractures - neck-91, Hx Spine Fracture Past Surgical History: Reports: Hx Bowel Surgery - colostomy, Hx Orthopedic Surgery - neck surgery. Denies: Hx Colostomy, Hx Pacemaker - Immunizations Hx Diphtheria, Pertussis, Tetanus Vaccination: - UNSURE Review of Systems - Review of Systems -: Yes ROS unobtainable due to patient's medical condition Physical Exam - Vital signs Vitals: Temp Resp BP 95.6 F L 13 70/52 L 12/05/19 15:01 12/05/19 15:01 12/05/19 15:01 - Notes Notes: This is a 69-year-old gentleman who appears much older than his stated age. He is intubated with the ET tube in place. Head is normocephalic and atraumatic. Pupils are 4 mm, round, nonreactive. Sclera are markedly icteric. Oral mucosa is dry. ET tube is in place, appears deep. Heart is regular rate and rhythm, lungs are revealing of coarse breath sounds, right greater than left. Abdomen is distended. He has hepatomegaly, caput medusa. He has 3+ pitting edema up to the abdomen plus anasarca. Patient has no corneal reflex. He makes occasional respirations over top of the ventilator, but makes no other spontaneous movements. Course - Re-evaluation Re-evalutation: 12/05/19 19:36 Patient presents to the emergency department for evaluation after cardiac arrest. Upon initial evaluation he had signs of significant brain damage. His endotracheal tube did seem to be down too far, it was withdrawn 2 cm. Chest x- ray showed this ET tube to be in satisfactory position. His family came in shortly afterwards, including a sister and 2 brothers. He has another brother that is approximately an hour away, that has no plans to come in, but all conversations were held amongst the entire family. I talked at length with the family. They do not believe he would want to be being kept alive on a ventilator. They believe that withdrawal of this care is appropriate, and request that no other aggressive measures be pursued. I explained that given his lack of apparent brain activity, as well as his comorbidities, I do believe that this is an appropriate decision. No further interventions were made. After some time, the patient was extubated, as per the family's wishes. Following extubation, the patient's respiratory rate remained between 12 and 15. His heart rate remained in the 70s. The patient became hypotensive with systolic blood pressures in the 60s and 70s, but otherwise his vital signs of remained stable. We waited some time, he has been given morphine for apparent air hunger and discomfort, but the patient has remained vitally stable. I discussed possibilities of treatment plans with the family at length. I explained to them that he could not receive hospice care if he is admitted to the hospital. He could receive end-of-life care, of course, but the hospice consult would be withdrawn. At this point I am unsure as to how long the patient will hold on. I explained this at length again to the sister and brothers. Decision was made for the patient to be transported back to [facility]. Hospice consult remains in place. Family will be able to stay with him. I talked at length with Tawnya Mora, director of case management about this, and she was kept abreast of the situation. Patient will be transferred back to [place] for end-of-life care. - Vital Signs Vital signs: Temp Pulse Resp BP Pulse Ox 95.6 F L 13 61/49 L 87 L 12/05/19 15:01 12/05/19 18:00 12/05/19 17:01 12/05/19 18:00 - Laboratory Result Diagrams: 12/05/19 14:56 12/05/19 14:56 Laboratory results interpreted by me: 12/05/19 12/05/19 12/05/19 14:56 14:56 14:56 WBC 26.4 H RBC 2.72 L Hgb 9.1 L Hct 29.8 L MCV 110 H D MCH 33.5 H MCHC 30.6 L RDW 21.3 H Plt Count 72 L Seg Neuts % (Manual) 92 H Lymphocytes % (Manual) 5 L Monocytes % (Manual) 2 L Abs Neuts (Manual) 24.3 H PT 47.7 H APTT 70.2 H Sodium 133.8 L Carbon Dioxide 13 L BUN 28 H Creatinine 1.44 H Est GFR ( Amer) 59 L Est GFR (MDRD) Non-Af 49 L Glucose 113 H Calcium 7.3 L Total Bilirubin 10.6 H Direct Bilirubin 9.4 H AST 966 H ALT 131 H Alkaline Phosphatase 957 H Total Protein 5.2 L Albumin 2.0 L - Diagnostic Test Radiology reviewed: Image reviewed, Reports reviewed Radiology results interpreted by me: 12/05/19 19:39 Chest X-Ray 12/05/19 14:49 IMPRESSION: Endotracheal tubes in satisfactory position. Lung arteaga are clear. No pneumothorax. Critical Care Note - Critical Care Note Total time excluding time spent on procedures (mins): 50 Discharge - Discharge Clinical Impression: Cardiac arrest, End stage liver disease Condition: Critical Disposition: HOME-SNF (ED ONLY) Additional Instructions: You are being discharged back to the care home for hospice services and end-of-life care. Referrals: KEY MARTINEZ MD [Primary Care Provider] - Follow up as needed
== END 2019-12-05 20:23 ==
LOC: ER 14:37
DX: I46.9 Cardiac arrest, cause unspecified (principal); K72.90 Hepatic failure, unspecified without coma; I10 Essential (primary) hypertension; Z88.6 Allergy status to analgesic agent; Z51.5 Encounter for palliative care
CPT/HCPCS: 36591; 96376; 99285; 96361; 51702; 96374; 96375; 36415; 85025; 85610; 85730; 80053; 84484; 71045; 94660; J2270; J2405; J7030; 94002